=== PATIENT | female | born 1945 | race Caucasian/White ===

== ENCOUNTER 2018-08-14 13:32 | Outpatient (CLI) | payer MEDICARE, OTHER | END 2018-08-14 13:33 | disposition critical access hospital (66) | LOC: EMS 13:32 | PROVIDERS: ATTEND Surgery | DX: R41.0 Disorientation, unspecified (principal); R51 Headache | CPT/HCPCS: A0425; A0429 ==

== ENCOUNTER 2018-08-14 14:01 | Observation (INO) | payer MEDICARE, OTHER ==
--- NOTE | 2018-08-14 14:23 | ED Physician Documentation ---
PD HPI FOCAL NEURO - Stated complaint Stated Complaint: AVILA - Chief complaint Chief Complaint: Neuro - History obtained from History obtained from: Patient, EMS - History of Present Illness Timing - onset: Today (This is a 73-year-old woman who has a history of migraines with aura only. She usually does not get a headache with them. She has no history of hypertension. Earlier today she developed a left retro- orbital headache radiating occipitally which is completely different than prior headaches but not the worst headache of her life. She became concerned because her blood pressure was much higher than normal. She denies chest pain or trouble breathing. She did feel confused and vertiginous briefly at the outset of the headache but that has resolved.) Review of Systems Ten Systems: 10 systems reviewed and negative Constitutional: denies: Fever, Chills Cardiac: denies: Chest pain / pressure, Palpitations Respiratory: denies: Dyspnea, Cough GI: denies: Abdominal Pain, Nausea, Vomiting PD PAST MEDICAL HISTORY - Past Medical History Past Medical History: Yes Endocrine/Autoimmune: Other Other Past Medical History: Thyroid CA - Past Surgical History Past Surgical History: Yes - Present Medications Home Medications: Ambulatory Orders Medication Instructions Recorded Confirmed Citalopram [CeleXA] 20 mg PO DAILY 08/14/18 08/14/18 Levothyroxine [Synthroid] 50 mcg PO QDAC 08/14/18 08/14/18 - Allergies Allergies/Adverse Reactions: Allergies Allergy/AdvReac Type Severity Reaction Status Date / Time meperidine [From Demerol] AdvReac Emesis Verified 08/14/18 20:34 - Social History Does the pt smoke?: No Smoking Status: Never smoker Does the pt drink ETOH?: Yes Does the pt have substance abuse?: No - Immunizations Immunizations are current?: Yes - POLST Patient has POLST: No PD ED PE NORMAL - Vitals Vital signs reviewed: Yes - General General: Alert and oriented X 3, No acute distress - HEENT HEENT: PERRL, EOMI - Neck Neck: Supple, no meningeal sign, No bony TTP - Cardiac Cardiac: RRR, No murmur - Respiratory Respiratory: No respiratory distress, Clear bilaterally - Abdomen Abdomen: Non tender - Extremities Extremities: No edema, No calf tenderness / cord - Neuro Neuro: Alert and oriented X 3, Normal speech Eye Opening: Spontaneous Motor: Obeys Commands Verbal: Oriented GCS Score: 15 - Psych Psych: Normal mood, Normal affect NIHSS - Time Time: 14:15 - Level of Consciousness Level of consciousness: (0) Alert, Keenly responsive LOC Questions: (0) Answers both Q's correct LOC Commands: (0) Performs both correctly - Gaze Best Gaze: (0) Normal - Visual Visual: (0) No loss - Facial Palsy Facial Palsy: (0) Normal, symmetrical movement - Motor Arms (both separate) Motor Arm (right): (0) No drift Motor Arm (left): (0) No drift - Motor Legs (both separate) Motor Leg (right): (0) No drift Motor Leg (left): (0) No drift - Limb Ataxia Limb Ataxia: (0) Absent - Sensory Sensory: (0) Normal - Best Language Best Language: (0) No aphasia - Dysarthria Dysarthria: (0) Normal - Extinction and Inattention (formally neg Extinction and inattention: (0) No abnormality - Total Score/Results Total Score/Result: 0 Results - Vitals Vitals: Vital Signs - 24 hr 08/14/18 08/14/18 08/14/18 14:07 15:10 15:15 Temperature 36.5 C Heart Rate 68 65 67 Respiratory 16 16 16 Rate Blood Pressure 229/105 H 209/118 H 228/112 H O2 Saturation 98 100 98 08/14/18 08/14/18 08/14/18 15:54 16:00 16:05 Temperature Heart Rate 66 74 82 Respiratory 16 16 14 Rate Blood Pressure 198/99 H 179/77 H 166/75 H O2 Saturation 98 98 98 Oxygen O2 Source Room air - EKG (time done) 1427 Rate: Rate (enter#) (61) Rhythm: NSR [place]: Normal Intervals: Normal MI QRS: LVH Ischemia: Normal ST segments Computer interpretation: Agree with computer 1636 Rate: Rate (enter#) (56) Rhythm: NSR [place]: Normal Intervals: Normal MI QRS: Normal Ischemia: Non specific changes (Compared to the first EKG this 1 potentially has very mild submillimeter lateral ST depression with there are some artifacts it is hard to tell.). No: ST elevation c/w ischemia - Labs Labs: Laboratory Tests 08/14/18 08/14/18 08/14/18 14:35 14:35 14:35 WBC 7.6 RBC 4.73 Hgb 14.5 Hct 42.4 MCV 89.5 MCH 30.6 MCHC 34.2 RDW 12.8 Plt Count 256 MPV 9.3 Neut # (Auto) 5.4 Lymph # (Auto) 1.5 [place] # (Auto) 0.5 Eos # (Auto) 0.1 Baso # (Auto) 0.1 Absolute Nucleated RBC 0.00 Nucleated RBC % 0.1 PT 11.9 INR 1.1 Sodium 137 Potassium 3.8 Chloride 102 Carbon Dioxide 25 Anion Gap 10.0 BUN 19 Creatinine 0.7 Estimated GFR (MDRD) 82 L Glucose 98 Calcium 9.5 Total Bilirubin 0.8 AST 20 ALT 23 Alkaline Phosphatase 132 H Troponin I Total Protein 7.6 Albumin 4.3 Globulin 3.3 Albumin/Globulin Ratio 1.3 Lipase 34 08/14/18 14:35 WBC RBC Hgb Hct MCV MCH MCHC RDW Plt Count MPV Neut # (Auto) Lymph # (Auto) [place] # (Auto) Eos # (Auto) Baso # (Auto) Absolute Nucleated RBC Nucleated RBC % PT INR Sodium Potassium Chloride Carbon Dioxide Anion Gap BUN Creatinine Estimated GFR (MDRD) Glucose Calcium Total Bilirubin AST ALT Alkaline Phosphatase Troponin I < 0.04 Total Protein Albumin Globulin Albumin/Globulin Ratio Lipase - Rads (name of study) 1v chest Radiology: EMP read contemporaneously (NAD) CT Head Radiology: EMP read contemporaneously (sinus dz, no ICH etc) PD MEDICAL DECISION MAKING - ED course ED course: This is a 70-year-old who presents with very elevated blood pressures and headache without neurologic deficit. CT of the head was negative and her initial lab work was basically unremarkable. She was administered an initial dose of 10 mg of hydralazine without much effect but after 20 mg of hydralazine her blood pressure came down to about 160/90. Her headache really did not improve though and then she developed some left-sided chest pain and nausea. The onset of chest pain was about 4:35 PM. The initial EKG was without evidence of ischemia but this was repeated. The initial troponin was negative. She was administered aspirin. Even though her hypertensive urgency was in proving the fact that she developed chest pain is concerning and she will be placed in observation for formal rule out. Departure - Departure Disposition: ED Place in Observation Clinical Impression: Hypertensive urgency, Headache, Chest pain Condition: Serious Discharge Date/Time: 08/14/18 19:47
[2018-08-14 14:58] LABS: BASOPHILS # (AUTO) 0.1 10^3/uL (0.0-0.1); BASOPHILS % (AUTO) 0.8 %; EOSINOPHILS # (AUTO) 0.1 10^3/uL (0.0-0.7); EOSINOPHILS % (AUTO) 1.1 %; HGB - HEMOGLOBIN 14.5 g/dL (12.0-16.0); LYMPHOCYTES # (AUTO) 1.5 10^3/uL (1.5-3.5); LYMPHOCYTES % (AUTO) 20.3 %; MEAN CORPUSCULAR HEMOGLOBIN 30.6 pg (27.0-31.0); MEAN CORPUSCULAR HGB CONC 34.2 g/dL (32.0-36.0); MEAN CORPUSCULAR VOLUME 89.5 fL (81.0-99.0); MEAN PLATELET VOLUME 9.3 fL (7.9-10.8); MONOCYTES # (AUTO) 0.5 10^3/uL (0.0-1.0); MONOCYTES % (AUTO) 6.9 %; NEUTROPHILS # (AUTO) 5.4 10^3/uL (1.5-6.6); NEUTROPHILS % (AUTO) 70.9 %; PLT - PLATELET COUNT 256 10^3/uL (130-450); RED BLOOD COUNT 4.73 10^6/uL (4.20-5.40); RED CELL DISTRIBUTION WIDTH 12.8 % (12.0-15.0); WHITE BLOOD COUNT 7.6 x10^3/uL (4.8-10.8)
[2018-08-14] MEDS ORDERED: hydrALAZINE INJ 20 MG/ML VIAL IVP STA ×2 (14:59→15:42)
[2018-08-14 15:01] LABS: INR 1.1 (0.8-1.2); PT - PROTHROMBIN TIME 11.9 secs (9.9-12.6)
[2018-08-14 15:05] LABS: ALBUMIN 4.3 g/dL (3.2-5.5); ALBUMIN/GLOBULIN RATIO 1.3 (1.0-2.2); BILIRUBIN,TOTAL 0.8 mg/dL (0.2-1.0); CALCIUM 9.5 mg/dL (8.5-10.3); CREATININE 0.7 mg/dL (0.4-1.0); TOTAL PROTEIN 7.6 g/dL (6.7-8.2)
--- NOTE | 2018-08-14 15:22 | CT Report ---
Reason: headache Procedure Date: 08/14/2018 Accession Number: [id number] / [id number] Procedure: CT - Head W/O CPT Code: FULL RESULT: EXAM: CT HEAD EXAM DATE: 08/14/2018 02:45 PM. CLINICAL HISTORY: Headache. COMPARISON: None. TECHNIQUE: Multiaxial CT images were obtained from the foramen magnum to the vertex. Reformats: Sagittal and coronal. IV contrast: None. In accordance with CT protocol optimization, one or more of the following dose reduction techniques were utilized for this exam: automated exposure control, adjustment of mA and/or KV based on patient size, or use of iterative reconstructive technique. FINDINGS: Parenchyma: No intraparenchymal hemorrhage. No evidence of mass, midline shift, or CT findings of infarction. Sanchez-white differentiation is distinct. Extraaxial Spaces: Normal for age. No subdural or epidural collections identified. Ventricles: Normal in size and position. Sinuses and Orbits: There is bilateral maxillary sinusitis. Bones: No evidence of fracture or calvarial defect. Other: None. IMPRESSION: 1. No acute intracranial CT abnormality. 2. There is bilateral maxillary sinusitis. RADIA
[2018-08-14] MEDS ORDERED: ASPIRIN CHEW 81 MG TABLET PO STA (16:36)
[2018-08-14] MEDS ORDERED: ONDANSETRON 4 MG/2 ML VIAL IVP STA (16:36)
--- NOTE | 2018-08-14 17:44 | HISTORY & PHYSICAL EXAMINATION ---
Chief Complaint - Chief Complaint Chief Complaint: chest pain in ER History of Present Illness - Admitted From Admitted From:: Home/EMS/ER - History Obtained From Records Reviewed: [facility] History obtained from: Patient and Dr. Rincon Exam Limitations: none - History of Present Illness HPI Comment/Other: This is a lively lady who called EMS because she was having headache. She has a history of migraines with aura only. No pain. She also does not have a history of hypertension. When she does have a migraine, is manifested is more slight left hand weakness left arm weakness. But no headache. Earlier today she devel oped pain behind her left eye and went to the back of her skull. There was no aura. This bothered her because she usually does have aura. She also relates that she was having visual changes. And for a very short moment she had dizziness. While she was talking on the phone with her friend, she was having problems getting speech out. She kept on saying the word december instead of October. So she got off the phone with her friend. She was checking her blood pressure with this and it was getting higher and higher . She laid down in the bed for 15 minutes. Got up. Still felt like she was not right. She could not say the word Lazara to turn Lazara off. She was reading things and just not understanding them. She spoke to her daughter and her daughter called 911. At that point in time she denied chest pain, shortness of breath, jaw pain or shoulder pain. Dr. Ivan evaluated her headache. Noted that her blood pressure was 229/105. Waited for it to go down on its own and did not so we gave her hydralazine. Blood pressure came down to 166/75. As she was getting ready to leave, and Dr. Ivan was speaking to her, she complained of severe central chest pain. EKG had nonspecific changes. She was normal sinus rhythm with a normal UT interval and normal QRS. Her troponin was less than 0.04. She has no risk factors for coronary artery disease other than age. Prior to this she has not had high blood pressure. She does not have diabetes, hyperlipidemia, is a non-smoker, and has a negative family history. Dr. Ivan is asking us to place her in observation for her chest pain, and newly uncontrolled high blood pressure.But she is politely declining admission. History - Past Medical History Cardiovascular: reports: None Respiratory: reports: None Neuro: reports: None Endocrine/Autoimmune: reports: Other (thyroid cancer) GI: reports: Other (chronic diarrhea and colonoscopy neg.) [employer]: reports: Other () : reports: None HEENT: reports: Chronic sinusitis Psych: reports: None Musculoskeletal: reports: None Derm: reports: None MRSA Hx?: No Other Past Medical History: Thyroid CA - Family & Social History Family History Comment/Other: Mom last year at age 98 of old age. Dad at 86 for of complications of hypertension. One sister is not is healthy she is but has no major problems. 1 daughter and 1 son are healthy Living arrangement: At home Living Situation: Alone Social History Notes: She is from the [place] area. Came to [facility] to live here permanently 4 years ago. She is been twice. With her second , who of Elisabet Gehrig's disease, they spent a lot of time on the [place]. Her grandparents are [employer] and [place] is named after them. Her mom used to [address] [place]. She smoked for short time in college, may be 2 months. She is never had a problem with alcohol abuse. 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 She currently lives alone. - Substance History Use: Uses substance without health or social issues: NONE Abuse: Recurrent use of substance despite neg consequences: NONE Dependence: Experiences withdrawal or developed tolerances: NONE - POLST Patient has POLST: No POLST Status: DNR Meds/Allgy - Home Medications Home Medications: Ambulatory Orders Medication Instructions Recorded Confirmed Citalopram [CeleXA] 20 mg PO DAILY 08/14/18 08/14/18 Levothyroxine [Synthroid] 50 mcg PO QDAC 08/14/18 08/14/18 - Allergies Allergies/Adverse Reactions: Allergies Allergy/AdvReac Type Severity Reaction Status Date / Time No Known Drug Allergies Allergy Verified 08/14/18 14:07 Review of Systems - Constitutional Constitutional: denies: Fatigue, Fever, Chills, Malaise, Weakness, Poor appetite, Diaphoresis - Eyes Eyes: reports: Spots in vision (When she gets migraine as part of her aura), Corrective lenses. denies: Pain, Irritation, Amaurosis, Blurred vision - Ears, Nose & Throat Ears, Nose & Throat: reports: Vertigo (Today as part of her migraine presentation, very transitory), Nasal obstruction, Nasal congestion, Postnasal drainage (As part of current episode of sinusitis is been going on for several weeks). denies: Ear pain, Hearing loss, Hearing aids, Tinnitus - Cardiovascular Cariovascular: reports: Chest pain (For the first time in the emergency room today). denies: Irregular heart rate, Palpitations, Edema, Lightheadedness, Syncope, Exertional dyspnea, Decr. exercise tolerance - Respiratory Respiratory: denies: Cough, Sputum production, Snoring - Gastrointestinal Gastrointestinal: reports: Diarrhea, Reflux/heartburn. denies: Abdominal pain, Abdominal distention, Constipation, Change in bowel habits, Rectal bleeding, Bloody stools, Nausea, Bile emesis, Vincenzo blood emesis, Bloating, Poor appetite - Genitourinary Genitourinary: denies: Dysuria, Frequency, Urgency, Hematuria - Musculoskeletal Musculoskeletal: denies: Muscle pain, Back pain, Muscle aches, Stiffness, Gout - Integumentary Integumentary: denies: Rash, Pruritis, Lesions - Neurological Neurological: reports: Headache, Dizziness, Other (Speech difficulty word finding difficulty today). denies: General weakness, Focal weakness, Numbness - Psychiatric Psychiatric: denies: Depression, Anxiety, Suicidal, Delusions, Hallucinations - Endocrine Endocrine: denies: Polyuria, Polydypsia, Polyphagia - Hematologic/Lymphatic Hematologic/Lymphatic: denies: Anemia, Bruising, Petechiae, Blood clots Prior Level of Functionality: Lives alone. Completely active with regards to activities of daily living. Drives a car. Pays her bills. Cleans her own house. Does not use a cane or walker. Exam - Vital Signs Reviewed Vital Signs: Yes Vital Signs: Vital Signs x48h Temp Pulse Resp BP Pulse Ox 08/14/18 16:05 82 14 166/75 H 98 08/14/18 16:00 74 16 179/77 H 98 08/14/18 15:54 66 16 198/99 H 98 08/14/18 15:15 67 16 228/112 H 98 08/14/18 15:10 65 16 209/118 H 100 08/14/18 14:07 36.5 C 68 16 229/105 H 98 - Physical Exam General Appearance: positive: No acute distress, Alert Eyes Bilateral: positive: PERRL, EOMI ENT: positive: Pharynx nml, Other (Stridor with breathing in. I cannot tell if it is coming from her sinuses or her throat.) Neck: negative: No JVD, Stiff neck, Carotid bruit Respiratory: positive: Chest non-tender, Other (Upper trachea stridor that she says is from her sinusitis). negative: Wheezes, Rales, Rhonchi Cardiovascular: positive: Regular rate & rhythm. negative: JVD present, Systolic murmur, Gallop/S4, Friction rub Peripheral Pulses: positive: 2+ Abdomen: negative: Non-tender, No organomegaly, Nml bowel sounds, No distention, Tenderness Extremities: negative: Non-tender, Full ROM, Nml appearance Neurologic/Psychiatric: positive: Other (She has a very subtle left facial droop her eyelids do not completely close as her right windows. Left nasolabial fold is also subtly less pronounced than right. 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 She thinks that her eye has always look like that.). negative: Oriented x3, CN's nml (2-12), Motor nml Conclusion/Plan - Problem List (1) Chest pain Conclusion/Plan: The plan is to admit this patient for rule out VT. Her risk factors include age, but no hypertension, no hyperlipidemia, no diabetes, non-smoker. Negative family history. Plan: At this time we are in a holding pattern. After doing her history and physical she says that she does not want to be brought in. I have spoken to Dr. Ivan. He will talk to the patient and her daughter and will see what will happen t hen. He may be doing a troponin at 9 PM and speaking to her then. If she changes her mind, we will be glad to place her in observation. Qualifiers: Chest pain type: precordial pain Qualified Code(s): R07.2 - Precordial pain (2) Hypertensive urgency Conclusion/Plan: After 2 doses of hydralazine, she is now with normal blood pressure. In the outpatient setting she should get some follow-up with possibly renal artery Dopplers, follow-up blood pressures. She sees a primary care provider from Dr. claudia Davenport. Noticed will be sent to her. - Lab Results Lab results reviewed: Yes Timothy Bones: 08/14/18 14:35 08/14/18 14:35 - Diagnostic Imaging Results Diagnostic Imaging Results: positive: Final report reviewed Core Measures - Anticipated LOS I expect patient to be DC'd or transferred within 96 hours.: Yes - DVT/VTE - Prophylaxis VTE/DVT Device ordered at admit?: Yes
--- NOTE | 2018-08-14 17:58 | XRAY Report ---
Reason: chest pain Procedure Date: 08/14/2018 Accession Number: [id number] / [id number] Procedure: XR - Chest 1 View X-Ray CPT Code: 21731 FULL RESULT: EXAM: CHEST RADIOGRAPHY EXAM DATE: 08/14/2018 05:35 PM. CLINICAL HISTORY: Chest pain. COMPARISON: None. TECHNIQUE: 1 view. FINDINGS: Lungs/Pleura: No focal opacities evident. No pleural effusion. No pneumothorax. Mediastinum: Within exam limitations, the cardiomediastinal contour is normal. Other: None. IMPRESSION: No acute intrathoracic plain film abnormality. RADIA
[2018-08-14] MEDS ORDERED: ONDANSETRON 4 MG/2 ML VIAL IVP PRN (18:13)
[2018-08-14] MEDS ORDERED: ONDANSETRON ODT 4 MG TABLET TL PRN (18:13)
[2018-08-14] MEDS ORDERED: oxyCODONE 5 MG TABLET PO PRN (18:13)
[2018-08-14] MEDS ORDERED: ACETAMINOPHEN 325 MG TABLET PO PRN (18:13)
[2018-08-14] MEDS ORDERED: SODIUM CHLORIDE FLUSH 0.9% 10 ML SYRINGE IVP PRN (18:13)
[2018-08-14] MEDS ORDERED: NITROGLYCERIN SL 0.4 MG TABLET SL PRN (18:14)
[2018-08-14] MEDS ORDERED: INSULIN ASPART 300 UNIT/3 ML PEN SUBQ SCH (21:00)
[2018-08-15] MEDS: SODIUM CHLORIDE FLUSH 0.9% 10 ML SYRINGE IVP SCH ×2 (00:43→11:19)
[2018-08-15 03:45] LABS: CALCIUM 8.8 mg/dL (8.5-10.3); CREATININE 0.6 mg/dL (0.4-1.0)
[2018-08-15] MEDS ORDERED: LEVOTHYROXINE 25 MCG TABLET PO SCH (07:00)
[2018-08-15] MEDS ORDERED: CITALOPRAM 10 MG TABLET PO SCH (09:00)
[2018-08-15] MEDS ORDERED: POLYETHYLENE GLYCOL 3350 17 GM PACKET PO SCH (09:00)
--- NOTE | 2018-08-15 09:09 | Discharge Plan ---
Discharge Plan Disposition: Home, Self Care Condition: Good Prescriptions: amLODIPine [Norvasc] 5 mg PO DAILY #30 tablet Diet: Regular Activity Restrictions: Activity as Tolerated Shower Restrictions: No Driving Restrictions: No Instruction Topics: Hypertension Control, Headaches Migraine and Tension, Headaches Self Care Additional Instructions or Follow Up instructions: You were placed in observation because of chest pain. You had an unfortunate event at home where you seem to be having another variant of a migraine headache. When you came to the emergency room with a concern about the headache that caused word finding problems, you then developed severely high blood pressure in the emergency room. That was taking care of after 2 doses of the medication called hydralazine. However, unfortunately, you developed chest pain. You were placed in observation to make sure you are not have a heart attack and 3 sets of cardiac enzymes were negative. At discharge, you do have mildly elevated blood pressure. Your systolic blood pressure varies between 124-159. You and your primary care provider will need to discuss that. I have started Norvasc 5 mg daily since your discharge blood pressures was 172/81 and 158/83. The other thing I noticed during your exam was a sound called stridor when you take a breath in. 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 There are techniques and procedures that can temporarily improve your vocal cord phonation such as Radiesse Voice. A specialist can inject the vocal cord with a substance to firm it up and take away the stridor. You and your daughter can see if there is an ENT specialist that can see you at [facility]. Please follow-up with your primary care provider in the next 1 week. Let them know what happened. No Smoking: If you smoke, Please STOP! Call for help. Follow-up with: Felicia Newby MD [Primary Care Provider] -
[2018-08-15] MEDS ORDERED: amLODIPine 5 MG TABLET PO SCH (12:00)
[2018-08-15 12:04] VITALS: BP 158/83
--- NOTE | 2018-08-15 14:19 | DISCHARGE SUMMARY ---
Physician: Fadia Arizmendi MD DATE OF ADMISSION: 08/14/2018 DATE OF DISCHARGE: 08/15/2018 DISCHARGE DIAGNOSES 1. Chest pain. 2. Hypertensive urgency. 3. Stridor. 4. Vocal cord paralysis. 5. Migraine headache variant. DISCHARGE MEDICATIONS 1. Celexa 20 mg daily. 2. Levothyroxine 50 mcg daily. 3. NEW MEDICINE: Amlodipine 5 mg p.o. q.d. PRINCIPAL PROCEDURES 1. Serial cardiac enzymes that were negative. 2. Head CT that shows bilateral maxillary sinusitis. 3. Chest x-ray: No acute intrathoracic plain film abnormality. HOSPITAL COURSE: This is a nayana lady whose cardiac risk factors for coronary artery event or stroke event include blood pressure, cholesterol, and age. She says that she has had borderline cholesterol for a few years now and has not really been wanting to seek therapy for that. Her blood pressure is also borderline, and her doctors are "monitoring it." She also has migraine headaches. They are usually manifested as an aura, and then some word finding difficulty and left arm and hand numbness, but never really a true headache. In the last few weeks, she has been plagued by sinusitis. She and her primary care provider are following that. She was on the phone with a friend when she developed her aura that she associates with migraine. At this time, there was a headache. She usually does not have a headache. She also noticed that she was having increasing word finding difficulties, and confusion in reading the written word; she usually does not have that. She did not have the usual numbness of her hand. She put the phone down, went to go lie down for 15 minutes using [employer]. When [employer]'s alarm went off for her to get up, she found that she could not find the right words to turn off Lazara, continued to have word finding difficulties. She spoke to her daughter, who called 911, and ambulance came to pick her up. She was brought to the hospital where she was very hypertensive. She was 229/105. Repeat was 209/118. A third blood pressure was 228/112. She was given hydralazine because her blood pressure was not coming down, and she came down to about 198/99, so she was given another hydralazine dose and came down to 132/56. CT of the head was negative for stroke, and with the blood pressure coming down, they felt that she was stable enough to go home to be followed up by her primary care provider for her blood pressure and hypertensive urgency. While she was being evaluated for discharge, she developed chest pain. EKG was negative and troponins were negative. The ER doctor felt it was prudent for her to come in overnight for observation. The patient was not happy about coming into the hospital, but she was really unhappy when it was going to be observation status. I did explain to her that Medicare usually requires 2 midnights for inpatient status, and 1 midnight for an observation status. I inquired if she wanted us to place her as a 2 midnight stay, which would be a stretch for her problem. She said she did not want to stay two midnights; only 1 midnight. Initially, she was going to leave AMA. Her daughter came back from getting dinner and talked mom into staying. Overnight, she was identified as having stridor. I noticed that on physical exam in the ER, and her blood pressure was intermittently elevated from the 120s up to the 150s. She had no further chest pain. Telemetry showed no arrhythmias, and her troponins were negative. She no longer had any manifestation of word finding difficulty, headache, or left arm weakness. We spoke about her stridor. It is from vocal cord paralysis from having her thyroid removed and her recurrent laryngeal nerve being nicked. She was very interested in trying to get treatment for it because it was really starting to bother her. She said that even quiet activities, where she read a book, would cause her to really hear how loud she was breathing. I recommended she follow up with [facility] ENT specialist. There are injections that can be given to strengthen up the affected vocal cord. It can last for several years, but not permanently. She and her daughter will look that up. As for her blood pressure at discharge, she agreed to start a blood pressure pill, and I started her on Norvasc 5 mg daily. She is to follow up with her primary care provider, Dr. Newby, in the next 1-2 weeks. She may need a Lennox protocol stress test. Those are not available on the weekend here in our institution. Dr. Newby may be able to schedule one. PHYSICAL EXAMINATION VITAL SIGNS: At discharge, temperature was 36.7, pulse 72, blood pressure 153/79, respirations 16, 97% on room air. HEENT: This woman has a very subtle left facial droop with loss of nasolabial fold deepness when you compare it to the right. Her left eye is also slightly wider and more open than the right eye because her eyelids do not close as much. She says that is a chronic finding for her. 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 She has stridor, a nasal tone of voice. She has confirmed maxillary sinusitis on CT; already being addressed in the outpatient setting, she tells me. LUNGS: Clear other than the stridor. No crackles, rhonchi or wheezing. HEART: PMI normally placed. She has a regular rate and rhythm. No murmurs, rubs or gallops. ABDOMEN: Benign, soft, nontender, and she ate 100% of her breakfast this morning. EXTREMITIES: Without clubbing, cyanosis or edema. She is able to transfer from a lying to a sitting position to a standing position without an assist. No ataxia. Able to go the bathroom on her own. CC: MD Belen Winston [place] [facility] TD: 08/15/2018 11:45 [email or web address]
== END 2018-08-15 11:35 | disposition home or self-care (01) ==
LOC: ED 14:01 → OBS 18:13
PROVIDERS: ADMIT Specialist; ATTEND Specialist
DX: R07.2 Precordial pain (principal); I16.0 Hypertensive urgency; R06.1 Stridor; J38.00 Paralysis of vocal cords and larynx, unspecified; G43.909 Migraine, unspecified, not intractable, without status migrainosus; Z85.850 Personal history of malignant neoplasm of thyroid; J32.0 Chronic maxillary sinusitis
CPT/HCPCS: 36415; 70450; 71045; 80048; 80053; 83690; 84484; 85025; 85610; 93005; 96374; 96375; 99284; 99285; A9270; G0378

== ENCOUNTER 2020-01-08 12:38 | Outpatient (CLI) | payer MEDICARE, OTHER | END 2020-01-08 12:39 | disposition critical access hospital (66) | LOC: EMS 12:38 | PROVIDERS: ATTEND Surgery | DX: M25.551 Pain in right hip (principal); W11.XXXA Fall on and from ladder, initial encounter; Y92.008 Other place in unspecified non-institutional (private) residence as the place of occurrence of the external cause | CPT/HCPCS: A0425; A0427 ==

== ENCOUNTER 2020-01-08 13:04 | Inpatient (IN) | payer MEDICARE, OTHER ==
--- NOTE | 2020-01-08 13:20 | ED Physician Documentation ---
PD HPI Fall - Stated complaint Stated Complaint: GLF - Chief complaint Chief Complaint: Trauma Ext - History obtained from History obtained from: Patient - History of Present Illness Mechanism of injury: Lost balance Fall distance: Standing position (from up on stepstool, lost balance when something got caught around her feet.), Less than 5ft Where injury occurred: Home Timing - onset: Today (just [employer]) Injury(ies) location: Right Lower Extremity (right hip) Associated symptoms: No: LOC, AMS, Weakness, Paresthesias, Nausea / vomiting Worsens with: Movement Contributing factors: Other (Last meal was approximately 10 30-11 this morning with a chicken sandwich). No: Anticoagulated, Intoxicated Similar symptoms before: Has not had sx before Review of Systems Constitutional: denies: Fever, Chills Nose: denies: Rhinorrhea / runny nose, Congestion Throat: denies: Sore throat Cardiac: denies: Chest pain / pressure Respiratory: denies: Dyspnea, Cough GI: denies: Abdominal Pain, Nausea, Vomiting Skin: denies: Abrasion (s), Laceration (s) Neurologic: denies: Focal weakness, Numbness, Altered mental status, Headache, Head injury, LOC PD PAST MEDICAL HISTORY - Past Medical History Cardiovascular: None Respiratory: None Neuro: None Endocrine/Autoimmune: Other GI: Other FILER AND SANDER: Other () : None HEENT: Chronic sinusitis Psych: None Musculoskeletal: None Derm: None - Past Surgical History Past Surgical History: Yes - Present Medications Home Medications: Ambulatory Orders Medication Instructions Recorded Confirmed Citalopram [CeleXA] 20 mg PO DAILY 08/14/18 08/14/18 Levothyroxine [Synthroid] 50 mcg PO QDAC 08/14/18 08/14/18 amLODIPine [Norvasc] 5 mg PO DAILY #30 tablet 08/15/18 - Allergies Allergies/Adverse Reactions: Allergies Allergy/AdvReac Type Severity Reaction Status Date / Time meperidine [From Demerol] AdvReac Emesis Verified 01/08/20 13:14 - Social History Does the pt smoke?: No Smoking Status: Never smoker Does the pt drink ETOH?: Yes Does the pt have substance abuse?: No - Immunizations Immunizations are current?: Yes - POLST Patient has POLST: No POLST Status: DNR PD ED PE NORMAL - Vitals Vital signs reviewed: Yes - General General: Alert and oriented X 3, Well developed/nourished - HEENT HEENT: Atraumatic, Pharynx benign - Neck Neck: Supple, no meningeal sign, No adenopathy - Cardiac Cardiac: RRR, No murmur - Respiratory Respiratory: Clear bilaterally - Abdomen Abdomen: Soft, Non tender - Back Back: No spinal TTP - Derm Derm: Normal color, Warm and dry - Extremities Extremities: Other (The right hip has tenderness to slight range of motion or any impaction to the area. It feels slightly better with a mild traction. There is no gross deformity noted. The knee and ankle are nontender. The left lower extremity is without any tenderness and has good range of motion. Both upper extremities are nontender with a good range of motion.) - Neuro Neuro: Alert and oriented X 3, validation scientist 2-12 intact, No motor deficit, No sensory deficit, Normal speech Eye Opening: Spontaneous Motor: Obeys Commands Verbal: Oriented GCS Score: 15 Results - Vitals Vitals: Vital Signs - 24 hr 01/08/20 01/08/20 13:06 15:11 Temperature 36.4 C L Heart Rate 55 L 54 L Respiratory 16 14 Rate Blood Pressure 147/78 H 126/82 H O2 Saturation 97 95 Oxygen O2 Source Room air - Labs Labs: Laboratory Tests 01/08/20 01/08/20 01/08/20 14:35 14:35 14:35 WBC 12.5 H RBC 4.23 Hgb 13.1 Hct 39.1 MCV 92.4 MCH 31.0 MCHC 33.5 RDW 12.5 Plt Count 233 MPV 10.3 Neut # (Auto) 10.4 H Lymph # (Auto) 1.3 L [place] # (Auto) 0.6 Eos # (Auto) 0.0 Baso # (Auto) 0.0 Absolute Nucleated RBC 0.00 Nucleated RBC % 0.0 PT 12.4 INR 1.1 APTT 30.7 Sodium 137 Potassium 3.6 Chloride 99 L Carbon Dioxide 26 Anion Gap 12.0 BUN 22 H Creatinine 0.8 Estimated GFR (MDRD) 70 L Glucose 138 H Calcium 9.0 Total Bilirubin 0.9 AST 24 ALT 25 Alkaline Phosphatase 105 Total Protein 6.8 Albumin 3.6 Globulin 3.2 Albumin/Globulin Ratio 1.1 Lipase 31 Urine Color Urine Clarity Urine pH Ur Specific [place] Urine Protein Urine Glucose (UA) Urine Ketones Urine Occult Blood Urine Nitrite Urine Bilirubin Urine Urobilinogen Ur Leukocyte Esterase Ur Microscopic Review Urine Culture Comments 01/08/20 15:00 WBC RBC Hgb Hct MCV MCH MCHC RDW Plt Count MPV Neut # (Auto) Lymph # (Auto) [place] # (Auto) Eos # (Auto) Baso # (Auto) Absolute Nucleated RBC Nucleated RBC % PT INR APTT Sodium Potassium Chloride Carbon Dioxide Anion Gap BUN Creatinine Estimated GFR (MDRD) Glucose Calcium Total Bilirubin AST ALT Alkaline Phosphatase Total Protein Albumin Globulin Albumin/Globulin Ratio Lipase Urine Color YELLOW Urine Clarity CLEAR Urine pH 7.0 Ur Specific [place] 1.020 Urine Protein NEGATIVE Urine Glucose (UA) NEGATIVE Urine Ketones TRACE Urine Occult Blood NEGATIVE Urine Nitrite NEGATIVE Urine Bilirubin NEGATIVE Urine Urobilinogen 0.2 (NORMAL) Ur Leukocyte Esterase NEGATIVE Ur Microscopic Review NOT INDICATED Urine Culture Comments NOT INDICATED - Rads (name of study) right hip Radiology: Prelim report reviewed (Right femoral neck fracture with some angulation.), See rad report chest xrY Radiology: Prelim report reviewed, See rad report (NBO ACUTE PROCESS) PD MEDICAL DECISION MAKING - ED course Complexity details: reviewed results, re-evaluated patient, considered differential, d/w patient, d/w licensed tax consultant (jose Fortune) Departure - Departure Disposition: 66 [facility] DC/Xfer Clinical Impression: Fall involving stool as cause of accidental injury Hip fracture Qualifiers: Encounter type: initial encounter Fracture type: closed Laterality: right Quali fied Code(s): S72.001A - Fracture of unspecified part of neck of right femur, initial encounter for closed fracture Condition: Stable Record reviewed to determine appropriate education?: Yes
[2020-01-08] MEDS ORDERED: MORPHINE 2 MG/ML CARPUJECT IVP STA (13:52)
[2020-01-08] MEDS ORDERED: ONDANSETRON 4 MG/2 ML VIAL IVP STA (13:52)
[2020-01-08] MEDS ORDERED: MORPHINE 10 MG/ML VIAL IVP STA (14:31)
[2020-01-08 14:42] LABS: BASOPHILS % (AUTO) 0.2 %; EOSINOPHILS % (AUTO) 0.2 %; HGB - HEMOGLOBIN 13.1 g/dL (12.0-16.0); LYMPHOCYTES # (AUTO) 1.3 10^3/uL (1.5-3.5); LYMPHOCYTES % (AUTO) 10.6 %; MEAN CORPUSCULAR HGB CONC 33.5 g/dL (32.0-36.0); MEAN CORPUSCULAR VOLUME 92.4 fL (81.0-99.0); MEAN PLATELET VOLUME 10.3 fL (7.9-10.8); MONOCYTES # (AUTO) 0.6 10^3/uL (0.0-1.0); MONOCYTES % (AUTO) 4.8 %; NEUTROPHILS # (AUTO) 10.4 10^3/uL (1.5-6.6); NEUTROPHILS % (AUTO) 83.4 %; PLT - PLATELET COUNT 233 10^3/uL (130-450); RED BLOOD COUNT 4.23 10^6/uL (4.20-5.40); RED CELL DISTRIBUTION WIDTH 12.5 % (12.0-15.0); WHITE BLOOD COUNT 12.5 x10^3/uL (4.8-10.8)
--- NOTE | 2020-01-08 14:45 | XRAY Report ---
Reason: fall from stepstool to right hip Procedure Date: 01/08/2020 Accession Number: [id number] / [id number] Procedure: XR - Hip w/Pelvis 2-3V RT CPT Code: Final Report FULL RESULT: PROCEDURE: Hip w/Pelvis 2-3V RT INDICATIONS: fall from stepstool to right hip TECHNIQUE: AP pelvis with lateral view(s) of the bilateral hip(s). COMPARISON: None. FINDINGS: Bones: Right hip fracture, likely transcervical neck. No dislocation. Pelvic ring appears intact. No suspicious bony lesions. Soft tissues: The visualized bowel gas pattern is normal. No suspicious soft tissue calcifications. IMPRESSION: Right hip fracture, likely transcervical. No dislocation. Reviewed by: Rishi Abbott MD on 01/08/2020 2:43 PM PDT Approved by: Rishi Abbott MD on 01/08/2020 2:43 PM PDT Station ID: [id number]
[2020-01-08 14:54] LABS: ALBUMIN 3.6 g/dL (3.2-5.5); ALBUMIN/GLOBULIN RATIO 1.1 (1.0-2.2); BILIRUBIN,TOTAL 0.9 mg/dL (0.2-1.0); CREATININE 0.8 mg/dL (0.4-1.0); INR 1.1 (0.8-1.2); PT - PROTHROMBIN TIME 12.4 secs (9.9-12.6); TOTAL PROTEIN 6.8 g/dL (6.7-8.2)
[2020-01-08 15:01] LABS: PARTIAL THROMBOPLASTIN TIME 30.7 secs (24.9-33.3)
--- NOTE | 2020-01-08 15:15 | XRAY Report ---
Reason: fall with hip fracture Procedure Date: 01/08/2020 Accession Number: [id number] / [id number] Procedure: XR - Chest 1 View X-Ray CPT Code: 65893 Final Report FULL RESULT: PROCEDURE: Chest 1 View X-Ray INDICATIONS: fall with hip fracture TECHNIQUE: One view of the chest was acquired. COMPARISON: CXR 08/14/2018 FINDINGS: Surgical changes and devices:. Right thyroidectomy clips. Lungs and pleura: No pleural effusions or pneumothorax. Lungs are clear. Question of emphysematous change. Mediastinum: Mediastinal contours appear normal. Heart size is normal. Bones and chest wall: No suspicious bony lesions. Overlying soft tissues appear unremarkable. IMPRESSION: No acute cardiopulmonary abnormality. Reviewed by: Rishi Abbott MD on 01/08/2020 3:14 PM PDT Approved by: Rishi Abbott MD on 01/08/2020 3:14 PM PDT Station ID: [id number]
[2020-01-08 15:20] LABS: BILIRUBIN,URINE NEGATIVE (NEGATIVE); GLUCOSE, URINE (UA) NEGATIVE (NEGATIVE); KETONES,URINE (UA) TRACE mg/dL (NEGATIVE); LEUKOCYTE ESTERASE, URINE NEGATIVE (NEGATIVE); NITRITE,URINE NEGATIVE (NEGATIVE); OCCULT BLOOD,URINE NEGATIVE (NEGATIVE); PROTEIN,URINE NEGATIVE (NEGATIVE); UROBILINOGEN,URINE 0.2 (NORMAL) E.U./dL (NORMAL)
[2020-01-08 15:22] LABS: CLARITY,URINE CLEAR (CLEAR)
[2020-01-08] MEDS ORDERED: LACTATED RINGERS 1,000 ML IV STA (16:26)
[2020-01-08] MEDS ORDERED: HYDROmorphone 1 MG/ML CARPUJECT IVP STA (16:26)
--- NOTE | 2020-01-08 17:46 | CONSULTATION NOTE ---
History of Present Illness - Admitted From Admitted From:: ER - History Obtained From Records Reviewed: Yes History obtained from: Patient Exam Limitations: Awake alert conversant - History of Present Illness HPI Comment/Other: Patient fell today from stepstool in garage. Twisted foot and fell directly ohn hip.No other complaints. No LOC. No back pain. History - Past Medical History Cardiovascular: reports: None, Hypertension Respiratory: reports: None Neuro: reports: None Endocrine/Autoimmune: reports: Other GI: reports: Other EVENT MGR: reports: Other () : reports: None HEENT: reports: Chronic sinusitis Psych: reports: None Musculoskeletal: reports: None Derm: reports: None MRSA Hx?: No - Family & Social History Family History Comment/Other: Mom last year at age 98 of old age. Dad at 86 for of complications of hypertension. One sister is not is healthy she is but has no major problems. 1 daughter and 1 son are healthy Social History Notes: She is from the [facility]. Came to [facility] to live here permanently 4 years ago. She is been twice. With her second , who of Elisabet Gehrig's disease, they spent a lot of time on the [place] and. Her grandparents are [employer] and [place] is named after them. Her mom used to [address] [place] [address] [place]. She smoked for short time in college, may be 2 months. She is never had a problem with alcohol abuse. 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 She currently lives alone. - Substance History Use: Uses substance without health or social issues: NONE - POLST Patient has POLST: No POLST Status: DNR Meds/Allgy - Home Medications Home Medications: Ambulatory Orders Medication Instructions Recorded Confirmed Citalopram [CeleXA] 40 mg PO DAILY 08/14/18 01/08/20 Levothyroxine [Synthroid] 50 mcg PO DAILY 08/14/18 01/08/20 Losartan/Hydrochlorothiazide 1 tab PO DAILY 01/08/20 01/08/20 [Losartan-Hctz 100-25 mg Tab] amLODIPine [Norvasc] 5 mg PO QPM 01/08/20 01/08/20 - Allergies Allergies/Adverse Reactions: Allergies Allergy/AdvReac Type Severity Reaction Status Date / Time meperidine [From Demerol] AdvReac Emesis Verified 01/08/20 13:14 Exam - Vital Signs Vital Signs: Vital Signs x48h Temp Pulse Pulse Resp BP BP Pulse Ox 01/08/20 17:11 97.4 C H 59 L 14 136/73 H 96 01/08/20 16:44 62 14 125/67 93 01/08/20 15:11 54 L 14 126/82 H 95 01/08/20 13:06 36.4 C L 55 L 16 147/78 H 97 - Physical Exam General Appearance: positive: Alert (conversant), Mild distress Eyes Bilateral: positive: Normal inspection ENT: positive: ENT inspection nml Neck: positive: Nml inspection, Trachea midline Respiratory: positive: Chest non-tender, No respiratory distress, Breath sounds nml Cardiovascular: positive: Regular rate & rhythm, No murmur, No gallop Abdomen: positive: Non-tender, No distention Rectal: positive: Other (Deferred) Back: positive: Nml inspection Skin: positive: Color nml Extremities: positive: Other (She has pain with logrolling right hip. Minimal shotening. Distal pulses DP and PT intact 2+ right foot. Neuro intact right lowe r extremity.) Conclusion/Plan - Plan Plan: I spoke to Dr. Gonzalez who will be coming integration software developer tomorrow. To circumvent this patient from being done at night for this non-urgent fracture he has agreed to take over care in the am at 8am. Salvatore signed. Patient markred. Risks and benefits of undergoing right hip hemiarthroplasty discussed in detail and she consents for surgery. NPO after midnight. - Lab Results Fish Bones: 01/08/20 14:35 01/08/20 14:35
[2020-01-08] MEDS: MORPHINE 2 MG/ML CARPUJECT IVP PRN ×2 (19:01→23:32)
[2020-01-08] MEDS: SODIUM CHLORIDE FLUSH 0.9% 10 ML SYRINGE IVP SCH ×2 (19:02→23:54)
[2020-01-08] MEDS: D5NS W/20 MEQ KCL 1,000 ML IV SCH (19:11)
--- NOTE | 2020-01-08 19:39 | HISTORY & PHYSICAL EXAMINATION ---
Chief Complaint - Chief Complaint Chief Complaint: right hip pain History of Present Illness - Admitted From Admitted From:: [facility] ED - History Obtained From Records Reviewed: yes History obtained from: patient - History of Present Illness HPI Comment/Other: Patient is a 74-year-old female who presented to the ED via EMS after sustaining a mechanical fall at home today. She was on a stepladder in her garage trying to get something from a higher height when the cords attached to the bag got tangled in her shoes causing her to lose her balance. She fell on her right hip. She did not hit her head or blackout. She fortunately had her phone with her and was able to call her neighbor who in turn called EMS and checking on her. In the ED work-up revealed a right hip fracture. As a result she is being admitted for further treatment. She denies chest pain, dyspnea, abdominal pain. She has been nauseous secondary to the pain medication she was given but denied any vomiting. She denied fever or chills. She reports being very active and is very independent of activities of daily living. She lives alone but has a very good support system. She was seen by Dr. Fortune the orthopedic surgeon and surgery is planned for tomorrow by Dr. Marquez. History - Past Medical History Cardiovascular: reports: None, Hypertension Respiratory: reports: None Neuro: reports: None Endocrine/Autoimmune: reports: Other (Hx of thyroid cancer s/p thyroidectomy) GI: reports: Other DRUM ATTENDANT: reports: Other () : reports: None HEENT: reports: Chronic sinusitis Psych: reports: None Musculoskeletal: reports: None Derm: reports: None MRSA Hx?: No - Past Surgical History /DRUM ATTENDANT: reports: Hysterectomy HEENT: reports: Cataracts Derm: reports: Skin cancer surgery - Family & Social History Family History Comment/Other: Mom last year at age 98 of old age. Dad at 86 for of complications of hypertension. One sister is not is healthy she is but has no major problems. 1 daughter and 1 son are healthy Living arrangement: At home Living Situation: Alone Social History Notes: She is from the [facility]. Came to [facility] to live here permanently 4 years ago. She is been twice. With her second , who of Elisabet Gehrig's disease, they spent a lot of time on the [place]. Her grandparents are [place]'s and [place] Aj is named after them. Her mom used to [address] [place] [address] [place]. She smoked for short time in college, may be 2 months. She is never had a problem with alcohol abuse. 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 She currently lives alone. - Substance History Use: Uses substance without health or social issues: NONE - POLST Patient has POLST: No POLST Status: Full Code Meds/Allgy - Home Medications Home Medications: Ambulatory Orders Medication Instructions Recorded Confirmed Citalopram [CeleXA] 40 mg PO DAILY 08/14/18 01/08/20 Levothyroxine [Synthroid] 50 mcg PO DAILY 08/14/18 01/08/20 Losartan/Hydrochlorothiazide 1 tab PO DAILY 01/08/20 01/08/20 [Losartan-Hctz 100-25 mg Tab] amLODIPine [Norvasc] 5 mg PO QPM 01/08/20 01/08/20 - Allergies Allergies/Adverse Reactions: Allergies Allergy/AdvReac Type Severity Reaction Status Date / Time meperidine [From Demerol] AdvReac Emesis Verified 01/08/20 13:14 Review of Systems - Constitutional Constitutional: denies: Fatigue, Fever, Chills - Eyes Eyes: denies: Pain - Ears, Nose & Throat Ears, Nose & Throat: reports: Hearing aids - Cardiovascular Cariovascular: denies: Irregular heart rate, Palpitations, Chest pain, Edema - Respiratory Respiratory: denies: Cough, Sputum production, Wheezing, SOB at rest, SOB with exertion - Gastrointestinal Gastrointestinal: reports: Nausea. denies: Abdominal pain, Abdominal dist ention, Vomiting - Musculoskeletal Musculoskeletal: reports: Joint pain (right hip). denies: Muscle pain, Back pain - Integumentary Integumentary: denies: Rash, Pruritis, Lesions - Neurological Neurological: denies: Focal weakness, Headache - Psychiatric Psychiatric: denies: Depression, Anxiety - Endocrine Endocrine: denies: Polyuria, Polydypsia - Hematologic/Lymphatic Hematologic/Lymphatic: denies: Anemia, Bruising, Petechiae Prior Level of Functionality: She lives alone. She is independent of activities of daily living. Exam - Vital Signs Vital Signs: Vital Signs x48h Temp Pulse Pulse Resp BP BP Pulse Ox 01/08/20 17:11 36.3 C L 59 L 14 136/73 H 96 01/08/20 16:44 62 14 125/67 93 01/08/20 15:11 54 L 14 126/82 H 95 01/08/20 13:06 36.4 C L 55 L 16 147/78 H 97 - Physical Exam General Appearance: positive: Alert, Moderate distress Eyes Bilateral: positive: PERRL, EOMI ENT: positive: No signs of dehydration Neck: positive: No JVD, Trachea midline Respiratory: positive: Chest non-tender, No respiratory distress, Breath sounds nml. negative: Wheezes, Rales, Rhonchi Cardiovascular: positive: Regular rate & rhythm, No murmur Abdomen: positive: Non-tender, Nml bowel sounds, No distention. negative: Guarding, Rebound Back: positive: Nml inspection Skin: positive: Color nml, No rash, Warm, Dry Extremities: positive: No pedal edema Neurologic/Psychiatric: positive: Oriented x3, Mood/affect nml Conclusion/Plan - Problem List (1) Closed right hip fracture Conclusion/Plan: Pain management with morphine as needed. Patient n.p.o. after midnight. Patient was seen by orthopedic today. Plan for surgery tomorrow. Qualifiers: Encounter type: initial encounter Qualified Code(s): S72.001A - Fracture of unspecified part of neck of right femur, initial encounter for closed fracture (2) Pre-op evaluation Conclusion/Plan: Patient is completely independent of activities of daily living. She has no history of cardiac disease. EKG done today showed sinus rhythm except for mild bradycardia. Chest x-ray showed no acute cardiopulmonary abnormality Per the NSQIP surgical risk calculator, patient's risk of serious complication and of any complication 2.4% and 2.6% respectively. At such patient is optimized for surgery (3) Hypertension Conclusion/Plan: We will continue amlodipine. We will resume losartan/HCTZ after surgery. (4) Hypothyroidism Conclusion/Plan: On Synthroid 50 mcg p.o. daily (5) Depression Conclusion/Plan: On citalopram - Lab Results Fish Bones: 01/09/20 05:02 01/09/20 05:02 Core Measures - Anticipated LOS I expect patient to be DC'd or transferred within 96 hours.: Yes - DVT/VTE - Prophylaxis VTE/DVT Device ordered at admit?: Yes
[2020-01-08] MEDS ORDERED: HEPARIN 5,000 UNIT/ML VIAL SUBQ SCH (21:00)
[2020-01-08] MEDS: HEPARIN 5,000 UNIT/ML VIAL SUBQ SCH (21:33)
[2020-01-09] MEDS: ONDANSETRON 4 MG/2 ML VIAL IVP PRN ×2 (02:09→18:43)
[2020-01-09] MEDS: amLODIPine 5 MG TABLET PO SCH ×2 (02:17→21:58)
[2020-01-09] MEDS: HYDROmorphone 0.5 MG/0.5 ML SYRINGE IVP PRN ×7 (02:17→18:43)
[2020-01-09] MEDS: HYDROcod/ACETAM 5/325 MG TABLET PO PRN ×3 (02:17→11:59)
[2020-01-09] MEDS: D5NS W/20 MEQ KCL 1,000 ML IV SCH ×3 (03:18→16:24)
[2020-01-09 05:30] LABS: BASOPHILS % (AUTO) 0.3 %; EOSINOPHILS % (AUTO) 0.3 %; LYMPHOCYTES # (AUTO) 0.8 10^3/uL (1.5-3.5); LYMPHOCYTES % (AUTO) 8.8 %; MEAN CORPUSCULAR HGB CONC 32.3 g/dL (32.0-36.0); MEAN CORPUSCULAR VOLUME 92.8 fL (81.0-99.0); MEAN PLATELET VOLUME 10.8 fL (7.9-10.8); MONOCYTES # (AUTO) 0.7 10^3/uL (0.0-1.0); MONOCYTES % (AUTO) 7.5 %; NEUTROPHILS # (AUTO) 7.9 10^3/uL (1.5-6.6); NEUTROPHILS % (AUTO) 82.8 %; PLT - PLATELET COUNT 191 10^3/uL (130-450); RED CELL DISTRIBUTION WIDTH 12.5 % (12.0-15.0); WHITE BLOOD COUNT 9.6 x10^3/uL (4.8-10.8)
[2020-01-09 05:37] LABS: CALCIUM 8.4 mg/dL (8.5-10.3); CREATININE 0.5 mg/dL (0.4-1.0)
[2020-01-09] MEDS: LEVOTHYROXINE 25 MCG TABLET PO SCH (06:02)
[2020-01-09] MEDS: PANTOPRAZOLE 40 MG TABLET PO SCH (06:06)
--- NOTE | 2020-01-09 07:39 | PHARMACY PROGRESS NOTE ---
- Best Possible Medication History Admit Date and Time: 01/08/20 1629 Processed by: Pharmacy Medication History completed: Yes Patient Interview: Completed Secondary Source(s): Written medication list, Pharmacy records, Insurance records As the person ultimately responsible for medication therapy, providers are able to order a medication from an existing home medication list in [facility] via the "Reconcile Routine" prior to Confirmation of that medication by clinical support nurse. Such practice is discouraged except when the physician, in their clinical judgment, deems that a medical need exists for a medication without regard to previous use.
--- NOTE | 2020-01-09 08:40 | CONSULTATION NOTE ---
Chief Complaint - Chief Complaint Chief Complaint: Pain right upper thigh and groin associated with fall on 01/08/2020 History of Present Illness - Admitted From Admitted From:: This is a relatively healthy 74-year-old woman who is on a stepladder and w - History Obtained From History obtained from: patient - History of Present Illness HPI Comment/Other: This is a relatively healthy 74-year-old woman who is on a stepladder and was coming down at home yesterday, when her foot became entangled with the string, tripped and fell onto her right side with immediate pain and inability to bear weight on the right leg. She is a community ambulator. She denies any other problems with her right hip, no previous fractures of hips. She does have a history of osteopenia. She has no other complaints of pain other than the right upper thigh and hip region. She denies chest pain, loss of consciousness, shortness of breath or dizziness associated with the fall. She has no history of deep venous thrombosis or pulmonary embolism in the past. She was admitted by the hospitalist and consulted by Dr. Fortune yesterday. 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 Dad at 86 for of complications of hypertension. One sister is not is healthy she is but has no major problems. 1 daughter and 1 son are healthy Living arrangement: At home Living Situation: Alone Social History Notes: She is from the [facility]. Came to [facility] to live here permanently 4 years ago. She is been twice. With her second , who of Elisabet Gehrig's disease, they [place] a [place]. Her grandparents are [employer]'s and [place] is named after them. Her mom used to [address]. She smoked for short time in college, may be 2 months. She is never had a problem with alcohol abuse. 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 She currently lives alone. - Substance History Use: Uses substance without health or social issues: NONE - POLST Patient has POLST: No POLST Status: Full Code Meds/Allgy - Home Medications Home Medications: Ambulatory Orders Medication Instructions Recorded Confirmed Citalopram [CeleXA] 40 mg PO DAILY 08/14/18 01/08/20 Levothyroxine [Synthroid] 50 mcg PO DAILY 08/14/18 01/08/20 Losartan/Hydrochlorothiazide 1 tab PO DAILY 01/08/20 01/08/20 [Losartan-Hctz 100-25 mg Tab] amLODIPine [Norvasc] 5 mg PO QPM 01/08/20 01/08/20 - Allergies Allergies/Adverse Reactions: Allergies Allergy/AdvReac Type Severity Reaction Status Date / Time meperidine [From Demerol] AdvReac Emesis Verified 01/08/20 13:14 Exam - Vital Signs Vital Signs: Vital Signs x48h Temp Pulse Resp BP Pulse Ox 01/09/20 03:18 36.9 C 59 L 16 145/73 H 97 01/09/20 01:45 62 16 172/86 H 97 - Physical Exam General Appearance: positive: No acute distress, Alert Eyes Bilateral: positive: Normal inspection ENT: positive: ENT inspection nml Neck: positive: Nml inspection Respiratory: positive: Chest non-tender Cardiovascular: positive: Regular rate & rhythm Peripheral Pulses: positive: 2+ Abdomen: positive: Non-tender Skin: positive: Color nml, Warm, Dry Neurologic/Psychiatric: positive: Oriented x3, Motor nml, Sensation nml, Mood/affect nml (Her orthopedic examination shows painful and limited movement of the right hip, shortening and external rotation deformity of right leg, skin intact, no hematoma to upper thigh. Examination of the left lower and both upper extremities did not reveal any abnormality from injury) Conclusion and Plan - Lab Results Laboratory Results 01/09/20 05:02: Sodium 133 L, Potassium 3.7, Chloride 100 L, Carbon Dioxide 26, Anion Gap 7.0, BUN 15, Creatinine 0.5, Estimated GFR (MDRD) 120, Glucose 135 H, Calcium 8.4 L 01/09/20 05:02: WBC 9.6, RBC 4.00 L, Hgb 12.0, Hct 37.1, MCV 92.8, MCH 30.0, MCHC 32.3, RDW 12.5, Plt Count 191, MPV 10.8, Neut # (Auto) 7.9 H, Lymph # (Auto) 0.8 L, [place] # (Auto) 0.7, Eos # (Auto) 0.0, Baso # (Auto) 0.0, Absolute Nucleated RBC 0.00, Nucleated RBC % 0.0 01/08/20 15:00: Urine Color YELLOW, Urine Clarity CLEAR, Urine pH 7.0, Ur Specific [place] 1.020, Urine Protein NEGATIVE, Urine Glucose (UA) NEGATIVE, Urine Ketones TRACE, Urine Occult Blood NEGATIVE, Urine Nitrite NEGATIVE, Urine Bilirubin NEGATIVE, Urine Urobilinogen 0.2 (NORMAL), Ur Leukocyte Esterase NEGATIVE, Ur Microscopic Review NOT INDICATED, Urine Culture Comments NOT INDICATED 01/08/20 14:35: Sodium 137, Potassium 3.6, Chloride 99 L, Carbon Dioxide 26, Anion Gap 12.0, BUN 22 H, Creatinine 0.8, Estimated GFR (MDRD) 70 L, Glucose 138 H, Calcium 9.0, Total Bilirubin 0.9, AST 24, ALT 25, Alkaline Phosphatase 105, Total Protein 6.8, Albumin 3.6, Globulin 3.2, Albumin/Globulin Ratio 1.1, Lipase 31 01/08/20 14:35: PT 12.4, INR 1.1, APTT 30.7 01/08/20 14:35: WBC 12.5 H, RBC 4.23, Hgb 13.1, Hct 39.1, MCV 92.4, MCH 31.0, MCHC 33.5, RDW 12.5, Plt Count 233, MPV 10.3, Neut # (Auto) 10.4 H, Lymph # (Auto) 1.3 L, [place] # (Auto) 0.6, Eos # (Auto) 0.0, Baso # (Auto) 0.0, Absolute Nucleated RBC 0.00, Nucleated RBC % 0.0 - Diagnostic Imaging Results Diagnostic Imaging Results: positive: Prelim report reviewed, Read independently - Diagnosis Diagnosis: Displaced femoral neck fracture right hip - Plan Plan: The tentative plan is to proceed with a right hip hemiarthroplasty. The risk, goals and likelihood of achieving goals, alternatives, disability and were discussed with the patient. Procedure specific risks including dislocation, infection, neurologic deficit, leg length discrepancy and deep venous thrombosis were discussed with her. I have encouraged questions. She seems to have understanding of the procedure and is in agreement to proceeding with a right hip hemiarthroplasty. The procedure will tentatively be performed this afternoon. She has been seen by hospitalist yesterday and also Dr. Fortune, orthopedist who was on-call yesterday.
[2020-01-09] MEDS: SODIUM CHLORIDE FLUSH 0.9% 10 ML SYRINGE IVP SCH ×2 (09:15→15:45)
[2020-01-09] MEDS: SODIUM CHLORIDE FLUSH 0.9% 10 ML SYRINGE IVP PRN (09:25)
[2020-01-09] MEDS: HEPARIN 5,000 UNIT/ML VIAL SUBQ SCH ×2 (11:56→21:58)
--- NOTE | 2020-01-09 14:08 | ANESTHESIA ---
Pre-Anesthesia VS, & Labs - Diagnosis Diagnosis Displaced femoral neck fracture right hip - Procedure R hemiarthroplasty hip Vital Signs: Temp Pulse Resp BP Pulse Ox 36.4 C L 57 L 16 122/75 96 01/09/20 08:15 01/09/20 08:15 01/09/20 08:15 01/09/20 08:15 01/09/20 08:15 Height 5 ft 7 in Weight (kg) 71 kg Body Mass Index 24.5 - NPO >8 hours - Is Patient ?: No - Lab Results Current Lab Results: Laboratory Tests 01/09/20 05:02: Sodium 133 L, Potassium 3.7, Chloride 100 L, Carbon Dioxide 26, Anion Gap 7.0, BUN 15, Creatinine 0.5, Estimated GFR (MDRD) 120, Glucose 135 H, Calcium 8.4 L 01/09/20 05:02: WBC 9.6, RBC 4.00 L, Hgb 12.0, Hct 37.1, MCV 92.8, MCH 30.0, MCHC 32.3, RDW 12.5, Plt Count 191, MPV 10.8, Neut # (Auto) 7.9 H, Lymph # (Auto) 0.8 L, [place] # (Auto) 0.7, Eos # (Auto) 0.0, Baso # (Auto) 0.0, Absolute Nucleated RBC 0.00, Nucleated RBC % 0.0 01/08/20 14:35: Sodium 137, Potassium 3.6, Chloride 99 L, Carbon Dioxide 26, Anion Gap 12.0, BUN 22 H, Creatinine 0.8, Estimated GFR (MDRD) 70 L, Glucose 138 H, Calcium 9.0, Total Bilirubin 0.9, AST 24, ALT 25, Alkaline Phosphatase 105, Total Protein 6.8, Albumin 3.6, Globulin 3.2, Albumin/Globulin Ratio 1.1, Lipase 31 01/08/20 14:35: PT 12.4, INR 1.1, APTT 30.7 01/08/20 14:35: WBC 12.5 H, RBC 4.23, Hgb 13.1, Hct 39.1, MCV 92.4, MCH 31.0, MCHC 33.5, RDW 12.5, Plt Count 233, MPV 10.3, Neut # (Auto) 10.4 H, Lymph # (Auto) 1.3 L, [place] # (Auto) 0.6, Eos # (Auto) 0.0, Baso # (Auto) 0.0, Absolute Nucleated RBC 0.00, Nucleated RBC % 0.0 Lab results reviewed: Yes Fish Bones: 01/09/20 05:02 01/09/20 05:02 Home Medications and Allergies Home Medications: Ambulatory Orders Losartan/Hydrochlorothiazide [Losartan-Hctz 100-25 mg Tab] 1 tab PO DAILY 01/08/20 amLODIPine [Norvasc] 5 mg PO QPM 01/08/20 Active Medications Hydrocodone Bitart/Acetaminophen ([place] 5/325) 1 tab PO Q4HR PRN PRN Reason: PAIN Last Admin: 01/09/20 11:59 Dose: 1 tab Amlodipine Besylate (Norvasc) 5 mg PO QPM [facility] Last Admin: 01/09/20 02:17 Dose: 5 mg Heparin Sodium (Porcine) () 5,000 unit SUBQ BID [facility] Last Admin: 01/09/20 11:56 Dose: Not Given Hydromorphone HCl (Dilaudid Inj Syringe) 0.5 mg IVP Q2H PRN PRN Reason: PAIN Last Admin: 01/09/20 12:00 Dose: 0.5 mg Potassium Chloride/Dextrose/Sod Cl () 1,000 mls @ 100 mls/hr IV .Q10H [facility] Last Admin: 01/09/20 06:10 Dose: 100 mls/hr Levothyroxine Sodium (Synthroid) 50 mcg PO QDAC [facility] Last Admin: 01/09/20 06:02 Dose: 50 mcg Ondansetron HCl (Zofran Inj) 4 mg IVP Q6HR PRN PRN Reason: Nausea / Vomiting Last Admin: 01/09/20 02:09 Dose: 4 mg Pantoprazole Sodium (Protonix) 40 mg PO QDAC [facility] Last Admin: 01/09/20 06:06 Dose: 40 mg Sodium Chloride (Normal Saline Flush 0.9%) 10 ml IVP PRN PRN PRN Reason: NEEDED PER PROVIDER ORDERS Last Admin: 01/09/20 09:25 Dose: 10 ml Sodium Chloride (Normal Saline Flush 0.9%) 10 ml IVP 0100,0900,1700 [facility] Last Admin: 01/09/20 09:15 Dose: Not Given Citalopram [CeleXA] 40 mg PO DAILY 08/14/18 Levothyroxine [Synthroid] 50 mcg PO DAILY 08/14/18 Losartan/Hydrochlorothiazide [Losartan-Hctz 100-25 mg Tab] 1 tab PO DAILY 01/08/20 amLODIPine [Norvasc] 5 mg PO QPM 01/08/20 Allergies/Adverse Reactions: Allergies Allergy/AdvReac Type Severity Reaction Status Date / Time meperidine [From Demerol] AdvReac Emesis Verified 01/08/20 13:14 Anes History & Medical History - Anesthetic History Anesthesia Complications: reports: No previous complications Family history of Anesthesia Complications: Denies Family history of Malignant Hyperthermia: Denies - Medical History Cardiovascular: reports: None, Hypertension Pulmonary: reports: None Gastrointestinal: reports: Other Urinary: reports: None Neuro: reports: None Musculoskeletal: reports: None Endocrine/Autoimmune: reports: Other (Hx of thyroid cancer s/p thyroidectomy) Blood Disorders: reports: None Skin: reports: None Smoking Status: Never smoker - Surgical History Eyes Ears Nose Throat (EENT): Cataracts Gynecologic: Hysterectomy Dermatologic: Skin cancer surgery Exam General: Alert, Oriented x3, Cooperative Dental: WNL Mouth Openin Fingerbreadth Neck Mobility: Normal Mallampati classification: III Respiratory: Lungs clear, Normal breath sounds, No respiratory distress Cardiovascular: Regular rate Neurological: Normal speech Mental/Cognitive Status: Alert/Oriented X3, Normal for patient Cognitive Status: Within normal limits Plan Anesthesia Type: General (pt refused spinal), Fascia [place] Block Regional Block: Per Surgeon's request for Post Op pain control Consent for Procedure(s) Verified and Reviewed: Yes Code Status: Attempt Resuscitation ASA classification: 2-Mild systemic disease Is this case an emergency?: No
--- NOTE | 2020-01-09 16:57 | PROVIDER PROGRESS NOTE ---
Assessment/Plan - Problem List (1) Closed right hip fracture Qualifiers: Encounter type: initial encounter Qualified Code(s): S72.001A - Fracture of unspecified part of neck of right femur, initial encounter for closed fracture Assessment/Plan: She still needs pain meds. She does not want to be repositioned in bed because she moved slightly and " heard something pop". She is awaiting surgery, will be done later in the day. (2) Hypertension Assessment/Plan: Her home blood pressure meds continue while here. (3) Hypothyroidism Assessment/Plan: Her home meds continue while here (4) Depression Assessment/Plan: Her home meds continue while here - Current Meds Current Meds: Current Medications Generic Name Dose Route Start Last Admin Trade Name Freq PRN Reason Stop Dose Admin Hydrocodone Bitart/Acetaminophen 1 tab 01/09/20 01:58 01/09/20 11:59 [place] 5/325 PO 1 tab Q4HR PRN Administration PAIN Amlodipine Besylate 5 mg 01/09/20 01:59 01/09/20 02:17 Norvasc PO 5 mg QPM LARRY Administration Heparin Sodium (Porcine) 5,000 unit 01/08/20 21:00 01/09/20 11:56 SUBQ Not Given BID LARRY Hydromorphone HCl 0.5 mg 01/09/20 01:58 01/09/20 14:46 Dilaudid Inj Syringe IVP 0.5 mg Q2H PRN Administration PAIN Potassium Chloride/Dextrose/Sod Cl 1,000 mls @ 100 mls/hr 01/08/20 17:00 01/09/20 16:24 IV 100 mls/hr .Q10H LARRY Administration Levothyroxine Sodium 50 mcg 01/09/20 07:00 01/09/20 06:02 Synthroid PO 50 mcg QDAC LARRY Administration Ondansetron HCl 4 mg 01/08/20 17:00 01/09/20 02:09 Zofran Inj IVP 4 mg Q6HR PRN Administration Nausea / Vomiting Pantoprazole Sodium 40 mg 01/09/20 07:00 01/09/20 06:06 Protonix PO 40 mg QDAC LARRY Administration Sodium Chloride 10 ml 01/08/20 17:00 01/09/20 09:25 Normal Saline Flush 0.9% IVP 10 ml PRN PRN Administration NEEDED PER PROVIDER ORDERS Sodium Chloride 10 ml 01/08/20 17:00 01/09/20 15:45 Normal Saline Flush 0.9% IVP Not Given 0100,0900,1700 LARRY - Lab Result Fish Bone Diagrams: 01/09/20 05:02 01/09/20 05:02 - Additional Planning My Orders: My Active Orders 01/08/20 17:00 Activity Orders [RC] Q2HR IO [RC] IOSHIFT Initiate Bowel Care Protocol [RC] .protocol Initiate Personal Care Protoco [RC] .protocol Oxygen Therapy [RC] Routine Vital Signs [RC] 0800,1600,0000 D5ns W/20 Meq KCl 1,000 ml IV 100 mls/hr Ondansetron Inj [Zofran Inj] 4 mg IVP Q6HR PRN Sodium Chloride Flush 0.9% [Normal Saline Flush 0.9%] 10 ml IVP 0100,0900,1700 Sodium Chloride Flush 0.9% [Normal Saline Flush 0.9%] 10 ml IVP PRN PRN Code Status [OTHERS] Routine Condition of Patient [OTHERS] Routine DVT Prophylaxis [OTHERS] Routine 01/08/20 17:01 IV Insert [RC] .ONCE 01/08/20 17:03 Initiate Line Care Protocol [RC] QSHIFT 01/08/20 21:00 Heparin 5,000 unit SUBQ BID 01/09/20 00:01 DIET [NPO except Meds at Midnight] [DIET] 01/09/20 07:00 Pantoprazole [Protonix] 40 mg PO QDAC Subjective - Subjective Patient Reports: Other (Still has pain. Is waiting for orthopedic surgery.) Objective Vital Signs: Vital Signs - 24 hr 01/08/20 01/08/20 01/09/20 17:11 23:34 01:45 Temperature 36.3 C L 37.2 C Heart Rate [ 59 L 62 62 Monitoring electrodes] Respiratory 14 14 16 Rate Blood Pressure [Left Brachial artery] Blood Pressure 136/73 H 158/80 H 172/86 H [Right Brachial artery] O2 Saturation 96 97 97 01/09/20 01/09/20 01/09/20 03:18 08:15 15:38 Temperature 36.9 C 36.4 C L 36.9 C Heart Rate [ 59 L 57 L 65 Monitoring electrodes] Respiratory 16 16 19 Rate Blood Pressure 134/64 H [Left Brachial artery] Blood Pressure 145/73 H 122/75 143/75 H [Right Brachial artery] O2 Saturation 97 96 95 Oxygen O2 Source Nasal cannula I&O (Last 24 Hrs): Intake and Output Totals x24h 01/07/20 01/08/20 01/09/20 23:59 23:59 23:59 Intake Total 650 2078.333 Output Total 400 600 Balance 250 1478.333 General: Alert, Oriented x3 HEENT: Mucous membr. moist/pink Neck: Supple Neuro: Alert, Non Focal Cardiovascular: Regular rate Respiratory: No respiratory distress Abdomen: Soft Extremities: No edema - Results Results: Laboratory Results WBC 9.6 x10^3/uL (4.8-10.8) 01/09/20 05:02 RBC 4.00 10^6/uL (4.20-5.40) L 01/09/20 05:02 Hgb 12.0 g/dL (12.0-16.0) 01/09/20 05:02 Hct 37.1 % (37.0-47.0) 01/09/20 05:02 MCV 92.8 fL (81.0-99.0) 01/09/20 05:02 MCH 30.0 pg (27.0-31.0) 01/09/20 05:02 MCHC 32.3 g/dL (32.0-36.0) 01/09/20 05:02 RDW 12.5 % (12.0-15.0) 01/09/20 05:02 Plt Count 191 10^3/uL (130-450) 01/09/20 05:02 MPV 10.8 fL (7.9-10.8) 01/09/20 05:02 Neut # (Auto) 7.9 10^3/uL (1.5-6.6) H 01/09/20 05:02 Lymph # (Auto) 0.8 10^3/uL (1.5-3.5) L 01/09/20 05:02 [place] # (Auto) 0.7 10^3/uL (0.0-1.0) 01/09/20 05:02 Eos # (Auto) 0.0 10^3/uL (0.0-0.7) 01/09/20 05:02 Baso # (Auto) 0.0 10^3/uL (0.0-0.1) 01/09/20 05:02 Absolute Nucleated RBC 0.00 x10^3/uL 01/09/20 05:02 Nucleated RBC % 0.0 /100WBC 01/09/20 05:02 PT 12.4 secs (9.9-12.6) 01/08/20 14:35 INR 1.1 (0.8-1.2) 01/08/20 14:35 APTT 30.7 secs (24.9-33.3) 01/08/20 14:35 Sodium 133 mmol/L (135-145) L 01/09/20 05:02 Potassium 3.7 mmol/L (3.5-5.0) 01/09/20 05:02 Chloride 100 mmol/L (101-111) L 01/09/20 05:02 Carbon Dioxide 26 mmol/L (21-32) 01/09/20 05:02 Anion Gap 7.0 (6-13) 01/09/20 05:02 BUN 15 mg/dL (6-20) 01/09/20 05:02 Creatinine 0.5 mg/dL (0.4-1.0) 01/09/20 05:02 Estimated GFR (MDRD) 120 (>89) 01/09/20 05:02 Glucose 135 mg/dL (70-100) H 01/09/20 05:02 Calcium 8.4 mg/dL (8.5-10.3) L 01/09/20 05:02 Total Bilirubin 0.9 mg/dL (0.2-1.0) 01/08/20 14:35 AST 24 IU/L (10-42) 01/08/20 14:35 ALT 25 IU/L (10-60) 01/08/20 14:35 Alkaline Phosphatase 105 IU/L (42-121) 01/08/20 14:35 Total Protein 6.8 g/dL (6.7-8.2) 01/08/20 14:35 Albumin 3.6 g/dL (3.2-5.5) 01/08/20 14:35 Globulin 3.2 g/dL (2.1-4.2) 01/08/20 14:35 Albumin/Globulin Ratio 1.1 (1.0-2.2) 01/08/20 14:35 Lipase 31 U/L (22-51) 01/08/20 14:35 Urine Color YELLOW 01/08/20 15:00 Urine Clarity CLEAR (CLEAR) 01/08/20 15:00 Urine pH 7.0 PH (5.0-7.5) 01/08/20 15:00 Ur Specific [place] 1.020 (1.002-1.030) 01/08/20 15:00 Urine Protein NEGATIVE mg/dL (NEGATIVE) 01/08/20 15:00 Urine Glucose (UA) NEGATIVE mg/dL (NEGATIVE) 01/08/20 15:00 Urine Ketones TRACE mg/dL (NEGATIVE) 01/08/20 15:00 Urine Occult Blood NEGATIVE (NEGATIVE) 01/08/20 15:00 Urine Nitrite NEGATIVE (NEGATIVE) 01/08/20 15:00 Urine Bilirubin NEGATIVE (NEGATIVE) 01/08/20 15:00 Urine Urobilinogen 0.2 (NORMAL) E.U./dL (NORMAL) 01/08/20 15:00 Ur Leukocyte Esterase NEGATIVE (NEGATIVE) 01/08/20 15:00 Ur Microscopic Review NOT INDICATED 01/08/20 15:00 Urine Culture Comments NOT INDICATED 01/08/20 15:00
[2020-01-09] MEDS ORDERED: ACETAMINOPHEN 1,000 MG/100 ML 100 ML IV ONE (17:32)
[2020-01-09] MEDS ORDERED: fentaNYL 100 MCG/2 ML VIAL IVP ONE (19:28)
[2020-01-09] MEDS ORDERED: ACETAMINOPHEN 1,000 MG/100 ML VIAL IV ONE (19:28)
[2020-01-09] MEDS ORDERED: NEOSTIGMINE 1 MG/1 ML 10 ML MDV IVP ONE (19:28)
[2020-01-09] MEDS ORDERED: PROPOFOL 200 MG/20 ML VIAL IVP ONE (19:28)
[2020-01-09] MEDS ORDERED: MIDAZOLAM 2 MG/2 ML VIAL IVP ONE (19:28)
[2020-01-09] MEDS ORDERED: ROCURONIUM 50 MG/5 ML VIAL IVP ONE (19:28)
[2020-01-09] MEDS ORDERED: TRANEXAMIC ACID 1,000 MG/10 ML VIAL IV ONE (19:28)
[2020-01-09] MEDS ORDERED: GLYCOPYRROLATE 1 MG/5 ML VIAL IVP ONE (19:28)
[2020-01-09] MEDS ORDERED: LIDOCAINE-MPF 2% 5 ML VIAL IM ONE (19:28)
[2020-01-09] MEDS ORDERED: LACTATED RINGERS 1,000 ML IV ONE ×3 (19:45→21:13)
[2020-01-09] MEDS: BUPIVACAINE 0.25% PF 30 ML VIAL ONE ×2 (20:47→21:14)
--- NOTE | 2020-01-09 21:33 | OPERATIVE REPORT ---
Operative Report - General Admit Date: 01/08/20 Procedure Date: 01/09/20 Planned Procedure: Garrett arthroplasty right hip Pre-Op Diagnosis: Displaced femoral neck fracture right hip Procedure Performed: Hemiarthroplasty right hip using Cali nephew #13 Synergy femoral component, +0 neck, standard offset, 46 mm unipolar femoral head Post Op Diagnosis: Same as preop diagnosis - Procedure Note Primary Surgeon: Jose Gonzalez MD Secondary Surgeon: none Anesthesia Provider: Ramirez Sandhu Anesthesia Technique: General ET tube Estimated Blood Loss (mL): 350 Indications: This is a 74-year-old woman, community ambulator, no previous hip problems until she sustained a fall from a stepladder at home on 01/08/2020. She sustained isolated injury to right hip with pain, limited motion of right hip and clinical deformity of right leg. Her x-ray showed a completely displaced femoral neck fracture of the right hip. She was seen preoperatively by her hospitalist, informed consent obtained prior to surgery for hemiarthroplasty right hip Findings: There was a displaced femoral neck fracture of the right hip. There was no sign of articular cartilage damage to the acetabulum. Complications: None - Other Other Information/Narrative: The patient was brought to the operating room table and a general endotracheal anesthesia was performed. She was placed in the lateral decubitus position with the right hip facing superiorly and secured in this position using a pegboard. The right hip and right lower extremity was prepped and draped in a sterile manner in the usual fashion. A timeout procedure was performed by the entire operating room team and all were in agreement. A 12 cm longitudinal incision was made about the lateral aspect of the right hip. The subcutaneous tissue and fascia allan was split in line with the incision. An initial self- retaining retractor was inserted. The anterior one third of the gluteus medius was divided at the myotendinous junction to allow for later repair. The anterior hip capsule was exposed in a T shaped fashion and partially excised with the help of some traction and external rotation to the right leg. The femoral head was removed using a corkscrew and bone hook. The diameter of the femoral head was measured with calipers and measured 46 mm. The right leg was placed in a sterile pocket over the anterior aspect of the table. A hip skid was inserted to elevate the femoral neck. The femoral canal was opened with a box osteotome, reamers and then broaches to a number 13 mm broach. Calcar reaming was performed. A trial reduction was performed and found to be suitable with good leg length tension and good stability and motion to right hip. The permanent components were next seated with a #13 noncemented Synergy femoral component. This had excellent stability to push pull and rotation. The femoral head was then impacted on the femoral trunnion. The hip was reduced and found to be stable with good motion and good leg length tension. Dilute Betadine was placed into the wound for approximately 3 minutes, pulsatile lavage. Wound closure was performed with the capsule using #1 Vicryl, hip abductor repair at the myotendinous junction was performed with #1 Vicryl. Fascia allan was closed with #1 Vicryl. The subcutaneous tissue was closed with 0 Vicryl. The skin was closed with 3-0 Monocryl subcuticular suture. Dermabond was used for closure to the skin as well and a silver impregnated dressing was applied to the hip incision. The patient received 2 g of Ancef intravenously and 2 grams of tranexamic acid.She tolerated the procedure well
[2020-01-09] MEDS ORDERED: PROCHLORPERAZINE 10 MG/2 ML VIAL IVP PRN (21:55)
[2020-01-09] MEDS ORDERED: SODIUM CHLORIDE FLUSH 0.9% 10 ML SYRINGE IVP PRN (21:55)
[2020-01-09] MEDS ORDERED: ACETAMINOPHEN 1,000 MG/100 ML 100 ML IV PRN (21:55)
[2020-01-09] MEDS: ceFAZolin 2 GM in SODIUM CHLORIDE 0.9% 100ML 100 ML IV SCH (22:44)
[2020-01-10] MEDS: HYDROmorphone 0.5 MG/0.5 ML SYRINGE IVP PRN ×2 (00:16→17:04)
[2020-01-10] MEDS: SODIUM CHLORIDE FLUSH 0.9% 10 ML SYRINGE IVP SCH ×8 (01:14→23:48)
[2020-01-10 05:11] LABS: BASOPHILS % (AUTO) 0.2 %; EOSINOPHILS % (AUTO) 0.1 %; HGB - HEMOGLOBIN 11.4 g/dL (12.0-16.0); LYMPHOCYTES # (AUTO) 0.4 10^3/uL (1.5-3.5); LYMPHOCYTES % (AUTO) 3.8 %; MEAN CORPUSCULAR HEMOGLOBIN 31.3 pg (27.0-31.0); MEAN CORPUSCULAR HGB CONC 33.5 g/dL (32.0-36.0); MEAN CORPUSCULAR VOLUME 93.4 fL (81.0-99.0); MEAN PLATELET VOLUME 10.9 fL (7.9-10.8); MONOCYTES # (AUTO) 0.4 10^3/uL (0.0-1.0); MONOCYTES % (AUTO) 4.1 %; NEUTROPHILS % (AUTO) 91.4 %; PLT - PLATELET COUNT 173 10^3/uL (130-450); RED BLOOD COUNT 3.64 10^6/uL (4.20-5.40); RED CELL DISTRIBUTION WIDTH 12.2 % (12.0-15.0); WHITE BLOOD COUNT 9.8 x10^3/uL (4.8-10.8)
[2020-01-10 05:22] LABS: CALCIUM 8.3 mg/dL (8.5-10.3); CREATININE 0.5 mg/dL (0.4-1.0)
[2020-01-10] MEDS: ceFAZolin 2 GM in SODIUM CHLORIDE 0.9% 100ML 100 ML IV SCH (06:11)
[2020-01-10] MEDS: LEVOTHYROXINE 25 MCG TABLET PO SCH (06:11)
[2020-01-10] MEDS: PANTOPRAZOLE 40 MG TABLET PO SCH (06:13)
[2020-01-10] MEDS ORDERED: LEVOTHYROXINE 25 MCG TABLET PO SCH (07:00)
[2020-01-10] MEDS: ASPIRIN 325 MG TABLET PO SCH ×2 (09:15→16:47)
[2020-01-10] MEDS: LOSARTAN 50 MG TABLET PO SCH (09:16)
[2020-01-10] MEDS: hydroCHLOROthiazide 25 MG TABLET PO SCH (09:16)
--- NOTE | 2020-01-10 09:16 | XRAY Report ---
Reason: post op hemiarthroplasty hip Procedure Date: 01/09/2020 Accession Number: [id number] / [id number] Procedure: XR - Hip w/Pelvis 1V LT CPT Code: Final Report FULL RESULT: PROCEDURE: Hip w/Pelvis 1V RT INDICATIONS: post op hemiarthroplasty hip TECHNIQUE: AP pelvis with lateral view(s) of the right hip(s). COMPARISON: None. FINDINGS: Bones: Patient is status post right hip arthroplasty. Hardware is in expected anatomic alignment. Soft tissues: Overlying postoperative changes are noted in the soft tissues. IMPRESSION: Status post right hip arthroplasty. Reviewed by: Екатерина Singh MD on 01/10/2020 9:15 AM PDT Approved by: Екатерина Singh MD on 01/10/2020 9:15 AM PDT Station ID: [id number]
[2020-01-10] MEDS: HEPARIN 5,000 UNIT/ML VIAL SUBQ SCH (09:25)
--- NOTE | 2020-01-10 11:09 | PROVIDER PROGRESS NOTE ---
Subjective - General Admit Date: 01/08/20 Procedure Date: 01/09/20 Post Op Days: 1 Procedure Performed: hemiarthroplasty right hip - Review of Systems Wound/Incisions: positive: Dressing dry and intact General: positive: Other (She has good pain control to right hip, comfortable si tting in bed,) HEENT: positive: No symptoms Pulmonary: positive: No symptoms Cardiovascular: positive: No symptoms Gastrointestinal: positive: No symptoms Genitourinary: positive: No symptoms Musculoskeletal: positive: Joint pain Skin: positive: No symptoms Neurological: Psychiatric: positive: No symptoms Objective - Patient Data Vital Signs: Vital Signs x48h Temp Pulse Pulse Resp BP Pulse Ox 01/10/20 09:09 36.4 C L 83 14 98 01/10/20 08:25 36.4 C L 70 16 146/72 H 97 01/10/20 04:25 70 16 122/62 94 Weight: Weight 01/08/20 01/09/20 01/10/20 23:59 23:59 23:59 Weight (kg) 71 kg Intake & Output: Intake and Output Totals x24h 01/08/20 01/09/20 01/10/20 23:59 23:59 23:59 Intake Total 650 2796.673 340 Output Total 552 899 2725 Balance 250 2196.673 -1035 - Lab Results Lab Results: 01/10/20 04:50 01/10/20 04:50 Other Lab Results: Lab Results x24hrs 01/10/20 01/10/20 Range/Units 04:50 04:50 WBC 9.8 (4.8-10.8) x10^3/uL RBC 3.64 L (4.20-5.40) 10^6/uL Hgb 11.4 L (12.0-16.0) g/dL Hct 34.0 L (37.0-47.0) % MCV 93.4 (81.0-99.0) fL MCH 31.3 H (27.0-31.0) pg MCHC 33.5 (32.0-36.0) g/dL RDW 12.2 (12.0-15.0) % Plt Count 173 (130-450) 10^3/uL MPV 10.9 H (7.9-10.8) fL Neut # (Auto) 9.0 H (1.5-6.6) 10^3/uL Lymph # (Auto) 0.4 L (1.5-3.5) 10^3/uL [place] # (Auto) 0.4 (0.0-1.0) 10^3/uL Eos # (Auto) 0.0 (0.0-0.7) 10^3/uL Baso # (Auto) 0.0 (0.0-0.1) 10^3/uL Absolute Nucleated RBC 0.00 x10^3/uL Nucleated RBC % 0.0 /100WBC Sodium 133 L (135-145) mmol/L Potassium 3.9 (3.5-5.0) mmol/L Chloride 100 L (101-111) mmol/L Carbon Dioxide 25 (21-32) mmol/L Anion Gap 8.0 (6-13) BUN 8 (6-20) mg/dL Creatinine 0.5 (0.4-1.0) mg/dL Estimated GFR (MDRD) 120 (>89) Glucose 178 H (70-100) mg/dL Calcium 8.3 L (8.5-10.3) mg/dL - Current Medications Current Medications: Current Medications Generic Name Dose Route Start Last Admin Trade Name Freq PRN Reason Stop Dose Admin Hydrocodone Bitart/Acetaminophen 1 tab 01/09/20 01:58 01/09/20 11:59 [place] 5/325 PO 1 tab Q4HR PRN Administration PAIN Amlodipine Besylate 5 mg 01/09/20 01:59 01/09/20 21:58 Norvasc PO Not Given QPM LARRY Aspirin 325 mg 01/10/20 08:00 01/10/20 09:15 Crista PO 325 mg BIDWM LARRY Administration Heparin Sodium (Porcine) 5,000 unit 01/08/20 21:00 01/10/20 09:25 SUBQ Not Given BID LARRY Hydrochlorothiazide 25 mg 01/10/20 09:00 01/10/20 09:16 Hydrodiuril PO 25 mg DAILY LARRY Administration Hydromorphone HCl 0.5 mg 01/09/20 01:58 01/10/20 00:16 Dilaudid Inj Syringe IVP 0.5 mg Q2H PRN Administration PAIN Levothyroxine Sodium 50 mcg 01/09/20 07:00 01/10/20 06:11 Synthroid PO 50 mcg QDAC LARRY Administration Losartan Potassium 100 mg 01/10/20 09:00 01/10/20 09:16 Cozaar PO 100 mg DAILY LARRY Administration Ondansetron HCl 4 mg 01/08/20 17:00 01/09/20 18:43 Zofran Inj IVP 4 mg Q6HR PRN Administration Nausea / Vomiting Pantoprazole Sodium 40 mg 01/09/20 07:00 01/10/20 06:13 Protonix PO 40 mg QDAC LARRY Administration Sodium Chloride 10 ml 01/08/20 17:00 01/09/20 09:25 Normal Saline Flush 0.9% IVP 10 ml PRN PRN Administration NEEDED PER PROVIDER ORDERS Sodium Chloride 10 ml 01/08/20 17:00 01/10/20 09:17 Normal Saline Flush 0.9% IVP 10 ml 0100,0900,1700 LARRY Administration Sodium Chloride 10 ml 01/10/20 01:00 01/10/20 09:17 Normal Saline Flush 0.9% IVP Not Given 0100,0900,1700 LARRY - Physical Exam Wound/Incisions: positive: Dressing dry and intact General Appearance: positive: No acute distress, Alert Impression/Plan - Problem List Problem List: she is doing well postoperative day 1. Discontinue guzman, start PT and OT. ASA and foot pumps for DVT prophylaxis. Minimize need for narcotics.
--- NOTE | 2020-01-10 12:10 | PROVIDER PROGRESS NOTE ---
Assessment/Plan - Problem List (1) Closed right hip fracture Qualifiers: Encounter type: initial encounter Qualified Code(s): S72.001A - Fracture of unspecified part of neck of right femur, initial encounter for closed fracture Assessment/Plan: And this is status post operation for closed right hip fracture, we will continue PT/OT patient's therapist, will continue pain medication for pain control, will follow up with surgeon, Continue aspirin 325 mg twice daily for DVT prophylaxis (2) Hypertension Assessment/Plan: stable, continue Her home blood pressure meds. (3) Hypothyroidism Assessment/Plan: will check TSH, and continue Her home meds continue while here (4) Depression Assessment/Plan: stable, continue Her home meds continue while here - Current Meds Current Meds: Current Medications Generic Name Dose Route Start Last Admin Trade Name Freq PRN Reason Stop Dose Admin Hydrocodone Bitart/Acetaminophen 1 tab 01/09/20 01:58 01/09/20 11:59 [place] 5/325 PO 1 tab Q4HR PRN Administration PAIN Amlodipine Besylate 5 mg 01/09/20 01:59 01/09/20 21:58 Norvasc PO Not Given QPM LARRY Aspirin 325 mg 01/10/20 08:00 01/10/20 09:15 [place] PO 325 mg BIDWM LARRY Administration Hydrochlorothiazide 25 mg 01/10/20 09:00 01/10/20 09:16 Hydrodiuril PO 25 mg DAILY LARRY Administration Hydromorphone HCl 0.5 mg 01/09/20 01:58 01/10/20 00:16 Dilaudid Inj Syringe IVP 0.5 mg Q2H PRN Administration PAIN Levothyroxine Sodium 50 mcg 01/09/20 07:00 01/10/20 06:11 Synthroid PO 50 mcg QDAC LARRY Administration Losartan Potassium 100 mg 01/10/20 09:00 01/10/20 09:16 Cozaar PO 100 mg DAILY LARRY Administration Ondansetron HCl 4 mg 01/08/20 17:00 01/09/20 18:43 Zofran Inj IVP 4 mg Q6HR PRN Administration Nausea / Vomiting Pantoprazole Sodium 40 mg 01/09/20 07:00 01/10/20 06:13 Protonix PO 40 mg QDAC LARRY Administration Sodium Chloride 10 ml 01/08/20 17:00 01/09/20 09:25 Normal Saline Flush 0.9% IVP 10 ml PRN PRN Administration NEEDED PER PROVIDER ORDERS Sodium Chloride 10 ml 01/08/20 17:00 01/10/20 09:17 Normal Saline Flush 0.9% IVP 10 ml 0100,0900,1700 LARRY Administration Sodium Chloride 10 ml 01/10/20 01:00 01/10/20 09:17 Normal Saline Flush 0.9% IVP Not Given 0100,0900,1700 LARRY - Lab Result Fish Bone Diagrams: 01/10/20 04:50 01/10/20 04:50 - Additional Planning My Orders: My Active Orders 01/11/20 05:00 TSH [THYROID STIMULATING HORMONE] [IAI] DAILYLAB Subjective - Subjective Patient Reports: Feeling Better Objective Vital Signs: Vital Signs - 24 hr 01/09/20 01/09/20 01/09/20 15:38 21:33 21:35 Temperature 36.9 C 36.5 C 36.8 C Heart Rate 61 64 Heart Rate [ 65 Monitoring electrodes] Respiratory 19 12 14 Rate Blood Pressure 126/61 130/64 Blood Pressure 134/64 H [Left Brachial artery] Blood Pressure 143/75 H [Right Brachial artery] O2 Saturation 95 100 100 01/09/20 01/09/20 01/09/20 21:40 21:45 21:52 Temperature 36.8 C 36.5 C 36.5 C Heart Rate 70 77 66 Heart Rate [ Monitoring electrodes] Respiratory 14 16 15 Rate Blood Pressure 130/61 136/62 H 126/65 Blood Pressure [Left Brachial artery] Blood Pressure [Right Brachial artery] O2 Saturation 99 100 100 01/09/20 01/09/20 01/09/20 21:55 21:56 22:00 Temperature 37.0 C 36.3 C L 36.5 C Heart Rate 64 59 L Heart Rate [ 70 Monitoring electrodes] Respiratory 20 14 14 Rate Blood Pressure 135/67 H Blood Pressure [Left Brachial artery] Blood Pressure 119/56 L [Right Brachial artery] O2 Saturation 92 94 96 01/09/20 01/09/20 01/09/20 22:07 22:25 23:25 Temperature 36.5 C 36.4 C L 36.5 C Heart Rate 67 Heart Rate [ 66 70 Monitoring electrodes] Respiratory 16 20 14 Rate Blood Pressure 134/71 H Blood Pressure [Left Brachial artery] Blood Pressure 137/60 H 125/87 H [Right Brachial artery] O2 Saturation 95 94 97 01/10/20 01/10/20 01/10/20 00:25 04:25 08:25 Temperature 36.6 C 36.4 C L Heart Rate Heart Rate [ 68 70 70 Monitoring electrodes] Respiratory 16 16 16 Rate Blood Pressure Blood Pressure [Left Brachial artery] Blood Pressure 128/66 122/62 146/72 H [Right Brachial artery] O2 Saturation 94 94 97 01/10/20 09:09 Temperature 36.4 C L Heart Rate 83 Heart Rate [ Monitoring electrodes] Respiratory 14 Rate Blood Pressure Blood Pressure [Left Brachial artery] Blood Pressure [Right Brachial artery] O2 Saturation 98 Oxygen O2 Source Nasal cannula I&O (Last 24 Hrs): Intake and Output Totals x24h 01/08/20 01/09/20 01/10/20 23:59 23:59 23:59 Intake Total 650 2796.673 340 Output Total 520 823 5448 Balance 250 2196.673 -1035 General: Alert, Oriented x3, No acute distress HEENT: Atraumatic Neck: Supple Lymphatic: no adenopathy Neuro: Alert, Non Focal, Oriented Times 3 Cardiovascular: Regular rate, Normal S1, Normal S2 Respiratory: Chest non-tender, No respiratory distress, Breath sounds nml Abdomen: Normal bowel sounds, Soft Extremities: Normal pulses - Results Results: Laboratory Results WBC 9.8 x10^3/uL (4.8-10.8) 01/10/20 04:50 RBC 3.64 10^6/uL (4.20-5.40) L 01/10/20 04:50 Hgb 11.4 g/dL (12.0-16.0) L 01/10/20 04:50 Hct 34.0 % (37.0-47.0) L 01/10/20 04:50 MCV 93.4 fL (81.0-99.0) 01/10/20 04:50 MCH 31.3 pg (27.0-31.0) H 01/10/20 04:50 MCHC 33.5 g/dL (32.0-36.0) 01/10/20 04:50 RDW 12.2 % (12.0-15.0) 01/10/20 04:50 Plt Count 173 10^3/uL (130-450) 01/10/20 04:50 MPV 10.9 fL (7.9-10.8) H 01/10/20 04:50 Neut # (Auto) 9.0 10^3/uL (1.5-6.6) H 01/10/20 04:50 Lymph # (Auto) 0.4 10^3/uL (1.5-3.5) L 01/10/20 04:50 [place] # (Auto) 0.4 10^3/uL (0.0-1.0) 01/10/20 04:50 Eos # (Auto) 0.0 10^3/uL (0.0-0.7) 01/10/20 04:50 Baso # (Auto) 0.0 10^3/uL (0.0-0.1) 01/10/20 04:50 Absolute Nucleated RBC 0.00 x10^3/uL 01/10/20 04:50 Nucleated RBC % 0.0 /100WBC 01/10/20 04:50 PT 12.4 secs (9.9-12.6) 01/08/20 14:35 INR 1.1 (0.8-1.2) 01/08/20 14:35 APTT 30.7 secs (24.9-33.3) 01/08/20 14:35 Sodium 133 mmol/L (135-145) L 01/10/20 04:50 Potassium 3.9 mmol/L (3.5-5.0) 01/10/20 04:50 Chloride 100 mmol/L (101-111) L 01/10/20 04:50 Carbon Dioxide 25 mmol/L (21-32) 01/10/20 04:50 Anion Gap 8.0 (6-13) 01/10/20 04:50 BUN 8 mg/dL (6-20) 01/10/20 04:50 Creatinine 0.5 mg/dL (0.4-1.0) 01/10/20 04:50 Estimated GFR (MDRD) 120 (>89) 01/10/20 04:50 Glucose 178 mg/dL (70-100) H 01/10/20 04:50 Calcium 8.3 mg/dL (8.5-10.3) L 01/10/20 04:50 Total Bilirubin 0.9 mg/dL (0.2-1.0) 01/08/20 14:35 AST 24 IU/L (10-42) 01/08/20 14:35 ALT 25 IU/L (10-60) 01/08/20 14:35 Alkaline Phosphatase 105 IU/L (42-121) 01/08/20 14:35 Total Protein 6.8 g/dL (6.7-8.2) 01/08/20 14:35 Albumin 3.6 g/dL (3.2-5.5) 01/08/20 14:35 Globulin 3.2 g/dL (2.1-4.2) 01/08/20 14:35 Albumin/Globulin Ratio 1.1 (1.0-2.2) 01/08/20 14:35 Lipase 31 U/L (22-51) 01/08/20 14:35 Urine Color YELLOW 01/08/20 15:00 Urine Clarity CLEAR (CLEAR) 01/08/20 15:00 Urine pH 7.0 PH (5.0-7.5) 01/08/20 15:00 Ur Specific [place] 1.020 (1.002-1.030) 01/08/20 15:00 Urine Protein NEGATIVE mg/dL (NEGATIVE) 01/08/20 15:00 Urine Glucose (UA) NEGATIVE mg/dL (NEGATIVE) 01/08/20 15:00 Urine Ketones TRACE mg/dL (NEGATIVE) 01/08/20 15:00 Urine Occult Blood NEGATIVE (NEGATIVE) 01/08/20 15:00 Urine Nitrite NEGATIVE (NEGATIVE) 01/08/20 15:00 Urine Bilirubin NEGATIVE (NEGATIVE) 01/08/20 15:00 Urine Urobilinogen 0.2 (NORMAL) E.U./dL (NORMAL) 01/08/20 15:00 Ur Leukocyte Esterase NEGATIVE (NEGATIVE) 01/08/20 15:00 Ur Microscopic Review NOT INDICATED 01/08/20 15:00 Urine Culture Comments NOT INDICATED 01/08/20 15:00 Sepsis Event Note (H) - Evaluation Current Stage of Sepsis: Ruled out ABX Reporting Has patient been on IV antibiotics over the past 48 hours?: No Current Medications - Current Medications Current Medications: Active Medications Acetaminophen (Tylenol) 650 - 975 mg PO Q4HR PRN PRN Reason: PAIN Hydrocodone Bitart/Acetaminophen ([place] 5/325) 1 tab PO Q4HR PRN PRN Reason: PAIN Last Admin: 01/09/20 11:59 Dose: 1 tab Amlodipine Besylate (Norvasc) 5 mg PO QPM [facility] Last Admin: 01/09/20 21:58 Dose: Not Given Aspirin (Crista) 325 mg PO BIDWM [facility] Last Admin: 01/10/20 09:15 Dose: 325 mg Hydrochlorothiazide (Hydrodiuril) 25 mg PO DAILY [facility] Last Admin: 01/10/20 09:16 Dose: 25 mg Hydromorphone HCl (Dilaudid Inj Syringe) 0.5 mg IVP Q2H PRN PRN Reason: PAIN Last Admin: 01/10/20 00:16 Dose: 0.5 mg Levothyroxine Sodium (Synthroid) 50 mcg PO QDAC [facility] Last Admin: 01/10/20 06:11 Dose: 50 mcg Losartan Potassium (Cozaar) 100 mg PO DAILY [facility] Last Admin: 01/10/20 09:16 Dose: 100 mg Ondansetron HCl (Zofran Inj) 4 mg IVP Q6HR PRN PRN Reason: Nausea / Vomiting Last Admin: 01/09/20 18:43 Dose: 4 mg Pantoprazole Sodium (Protonix) 40 mg PO QDAC [facility] Last Admin: 01/10/20 06:13 Dose: 40 mg Prochlorperazine Edisylate (Compazine Inj) 10 mg IVP Q6HR PRN PRN Reason: Nausea / Vomiting Sodium Chloride (Normal Saline Flush 0.9%) 10 ml IVP PRN PRN PRN Reason: NEEDED PER PROVIDER ORDERS Last Admin: 01/09/20 09:25 Dose: 10 ml Sodium Chloride (Normal Saline Flush 0.9%) 10 ml IVP 0100,0900,1700 [facility] Last Admin: 01/10/20 09:17 Dose: 10 ml Sodium Chloride (Normal Saline Flush 0.9%) 10 ml IVP 0100,0900,1700 [facility] Last Admin: 01/10/20 09:17 Dose: Not Given Sodium Chloride (Normal Saline Flush 0.9%) 10 ml IVP PRN PRN PRN Reason: NEEDED PER PROVIDER ORDERS Citalopram [CeleXA] 40 mg PO DAILY 08/14/18 Levothyroxine [Synthroid] 50 mcg PO DAILY 08/14/18 Losartan/Hydrochlorothiazide [Losartan-Hctz 100-25 mg Tab] 1 tab PO DAILY 01/08/20 amLODIPine [Norvasc] 5 mg PO QPM 01/08/20
[2020-01-10] MEDS: HYDROcod/ACETAM 5/325 MG TABLET PO PRN ×2 (14:27→20:42)
[2020-01-10] MEDS: amLODIPine 5 MG TABLET PO SCH (20:28)
[2020-01-10] MEDS ORDERED: amLODIPine 5 MG TABLET PO SCH (21:00)
[2020-01-11] MEDS: HYDROcod/ACETAM 5/325 MG TABLET PO PRN ×2 (03:15→08:12)
[2020-01-11 05:14] LABS: BASOPHILS % (AUTO) 0.4 %; EOSINOPHILS # (AUTO) 0.2 10^3/uL (0.0-0.7); EOSINOPHILS % (AUTO) 2.5 %; LYMPHOCYTES # (AUTO) 1.2 10^3/uL (1.5-3.5); LYMPHOCYTES % (AUTO) 15.1 %; MEAN CORPUSCULAR HEMOGLOBIN 29.9 pg (27.0-31.0); MEAN CORPUSCULAR HGB CONC 32.1 g/dL (32.0-36.0); MEAN CORPUSCULAR VOLUME 93.1 fL (81.0-99.0); MEAN PLATELET VOLUME 10.8 fL (7.9-10.8); MONOCYTES # (AUTO) 0.8 10^3/uL (0.0-1.0); MONOCYTES % (AUTO) 10.3 %; NEUTROPHILS # (AUTO) 5.8 10^3/uL (1.5-6.6); NEUTROPHILS % (AUTO) 71.2 %; PLT - PLATELET COUNT 166 10^3/uL (130-450); RED BLOOD COUNT 3.35 10^6/uL (4.20-5.40); RED CELL DISTRIBUTION WIDTH 12.7 % (12.0-15.0); WHITE BLOOD COUNT 8.1 x10^3/uL (4.8-10.8)
[2020-01-11 05:23] LABS: CALCIUM 8.4 mg/dL (8.5-10.3); CREATININE 0.6 mg/dL (0.4-1.0)
[2020-01-11] MEDS: LEVOTHYROXINE 25 MCG TABLET PO SCH (06:46)
[2020-01-11] MEDS: PANTOPRAZOLE 40 MG TABLET PO SCH (06:46)
[2020-01-11] MEDS ORDERED: POTASSIUM CHLORIDE 20 MEQ TABLET PO SCH (07:09)
[2020-01-11] MEDS: ASPIRIN 325 MG TABLET PO SCH ×2 (07:55→17:17)
[2020-01-11] MEDS: LOSARTAN 50 MG TABLET PO SCH (08:05)
[2020-01-11] MEDS: hydroCHLOROthiazide 25 MG TABLET PO SCH (08:05)
[2020-01-11] MEDS: SODIUM CHLORIDE FLUSH 0.9% 10 ML SYRINGE IVP SCH ×4 (08:05→17:17)
[2020-01-11] MEDS: polyethylene glycoL 3350 17 GM PACKET PO SCH (09:22)
[2020-01-11] MEDS: HYDROmorphone 0.5 MG/0.5 ML SYRINGE IVP PRN (10:17)
--- NOTE | 2020-01-11 14:15 | PROVIDER PROGRESS NOTE ---
Assessment/Plan - Problem List (1) Closed right hip fracture Qualifiers: Encounter type: initial encounter Qualified Code(s): S72.001A - Fracture of unspecified part of neck of right femur, initial encounter for closed fracture Assessment/Plan: 01/10 Day two status post of operation. Continue physical therapist and occupational therapist, continue pain control And this is status post operation for closed right hip fracture, we will continue PT/OT patient's therapist, will continue pain medication for pain control, will follow up with surgeon, Continue aspirin 325 mg twice daily for DVT prophylaxis (2) Hypertension Assessment/Plan: stable, continue Her home blood pressure meds. (3) Hypothyroidism Assessment/Plan: 01/10 TSH is normal, continue Synthroid will check TSH, and continue Her home meds continue while here (4) Depression Assessment/Plan: stable, continue Her home meds continue while here - Current Meds Current Meds: Current Medications Generic Name Dose Route Start Last Admin Trade Name Freq PRN Reason Stop Dose Admin Hydrocodone Bitart/Acetaminophen 1 tab 01/09/20 01:58 01/11/20 08:12 [place] 5/325 PO 1 tab Q4HR PRN Administration PAIN Amlodipine Besylate 5 mg 01/09/20 01:59 01/10/20 20:28 Norvasc PO 5 mg QPM LARRY Administration Aspirin 325 mg 01/10/20 08:00 01/11/20 07:55 Crista PO 325 mg BIDWM LARRY Administration Hydrochlorothiazide 25 mg 01/10/20 09:00 01/11/20 08:05 Hydrodiuril PO 25 mg DAILY LARRY Administration Hydromorphone HCl 0.5 mg 01/09/20 01:58 01/11/20 10:17 Dilaudid Inj Syringe IVP 0.5 mg Q2H PRN Administration PAIN Levothyroxine Sodium 50 mcg 01/09/20 07:00 01/11/20 06:46 Synthroid PO 50 mcg QDAC LARRY Administration Losartan Potassium 100 mg 01/10/20 09:00 01/11/20 08:05 Cozaar PO 100 mg DAILY LARRY Administration Ondansetron HCl 4 mg 01/08/20 17:00 01/09/20 18:43 Zofran Inj IVP 4 mg Q6HR PRN Administration Nausea / Vomiting Pantoprazole Sodium 40 mg 01/09/20 07:00 01/11/20 06:46 Protonix PO 40 mg QDAC LARRY Administration Polyethylene Glycol 17 gm 01/11/20 09:00 01/11/20 09:22 Miralax PO 17 gm DAILY LARRY Administration Sodium Chloride 10 ml 01/08/20 17:00 01/09/20 09:25 Normal Saline Flush 0.9% IVP 10 ml PRN PRN Administration NEEDED PER PROVIDER ORDERS Sodium Chloride 10 ml 01/08/20 17:00 01/11/20 08:05 Normal Saline Flush 0.9% IVP 10 ml 0100,0900,1700 LARRY Administration Sodium Chloride 10 ml 01/10/20 01:00 01/11/20 09:22 Normal Saline Flush 0.9% IVP Not Given 0100,0900,1700 LARRY - Lab Result Fish Bone Diagrams: 01/11/20 04:50 01/11/20 04:50 - Additional Planning My Orders: My Active Orders 01/11/20 10:23 COVID-19 REFERENCE TEST Routine Subjective - Subjective Patient Reports: Feeling Better Nursing Reports: No Complaints Objective Vital Signs: Vital Signs - 24 hr 01/10/20 01/10/20 01/10/20 16:00 19:44 23:50 Temperature 37.3 C 36.9 C 36.6 C Heart Rate Heart Rate [ 77 74 67 Brachial] Respiratory 18 18 16 Rate Blood Pressure [Left Brachial artery] Blood Pressure 120/63 113/59 L 116/59 L [Right Brachial artery] O2 Saturation 93 96 96 01/11/20 01/11/20 01/11/20 03:10 07:57 12:32 Temperature 36.7 C 37.0 C 36.9 C Heart Rate Heart Rate [ 62 82 87 Brachial] Respiratory 16 16 20 Rate Blood Pressure 99/50 L [Left Brachial artery] Blood Pressure 112/55 L 127/73 [Right Brachial artery] O2 Saturation 94 96 97 01/11/20 12:36 Temperature 36.9 C Heart Rate 87 Heart Rate [ Brachial] Respiratory 20 Rate Blood Pressure [Left Brachial artery] Blood Pressure [Right Brachial artery] O2 Saturation 95 Oxygen O2 Source Room air I&O (Last 24 Hrs): Intake and Output Totals x24h 01/09/20 01/10/20 01/11/20 23:59 23:59 23:59 Intake Total 2796.673 1140 320 Output Total 600 3175 600 Balance 2196.673 -2035 -280 General: Alert, Oriented x3, No acute distress HEENT: Atraumatic Neck: Supple Lymphatic: no adenopathy Neuro: Alert, Non Focal, Oriented Times 3 Cardiovascular: Regular rate, Normal S1, Normal S2 Respiratory: Chest non-tender, No respiratory distress, Breath sounds nml Abdomen: Normal bowel sounds, Soft Extremities: Normal pulses - Results Results: Laboratory Results WBC 8.1 x10^3/uL (4.8-10.8) 01/11/20 04:50 RBC 3.35 10^6/uL (4.20-5.40) L 01/11/20 04:50 Hgb 10.0 g/dL (12.0-16.0) L 01/11/20 04:50 Hct 31.2 % (37.0-47.0) L 01/11/20 04:50 MCV 93.1 fL (81.0-99.0) 01/11/20 04:50 MCH 29.9 pg (27.0-31.0) 01/11/20 04:50 MCHC 32.1 g/dL (32.0-36.0) 01/11/20 04:50 RDW 12.7 % (12.0-15.0) 01/11/20 04:50 Plt Count 166 10^3/uL (130-450) 01/11/20 04:50 MPV 10.8 fL (7.9-10.8) 01/11/20 04:50 Neut # (Auto) 5.8 10^3/uL (1.5-6.6) 01/11/20 04:50 Lymph # (Auto) 1.2 10^3/uL (1.5-3.5) L 01/11/20 04:50 [place] # (Auto) 0.8 10^3/uL (0.0-1.0) 01/11/20 04:50 Eos # (Auto) 0.2 10^3/uL (0.0-0.7) 01/11/20 04:50 Baso # (Auto) 0.0 10^3/uL (0.0-0.1) 01/11/20 04:50 Absolute Nucleated RBC 0.00 x10^3/uL 01/11/20 04:50 Nucleated RBC % 0.0 /100WBC 01/11/20 04:50 PT 12.4 secs (9.9-12.6) 01/08/20 14:35 INR 1.1 (0.8-1.2) 01/08/20 14:35 APTT 30.7 secs (24.9-33.3) 01/08/20 14:35 Sodium 138 mmol/L (135-145) 01/11/20 04:50 Potassium 3.2 mmol/L (3.5-5.0) L 01/11/20 04:50 Chloride 100 mmol/L (101-111) L 01/11/20 04:50 Carbon Dioxide 29 mmol/L (21-32) 01/11/20 04:50 Anion Gap 9.0 (6-13) 01/11/20 04:50 BUN 14 mg/dL (6-20) 01/11/20 04:50 Creatinine 0.6 mg/dL (0.4-1.0) 01/11/20 04:50 Estimated GFR (MDRD) 97 (>89) 01/11/20 04:50 Glucose 117 mg/dL (70-100) H 01/11/20 04:50 Calcium 8.4 mg/dL (8.5-10.3) L 01/11/20 04:50 Total Bilirubin 0.9 mg/dL (0.2-1.0) 01/08/20 14:35 AST 24 IU/L (10-42) 01/08/20 14:35 ALT 25 IU/L (10-60) 01/08/20 14:35 Alkaline Phosphatase 105 IU/L (42-121) 01/08/20 14:35 Total Protein 6.8 g/dL (6.7-8.2) 01/08/20 14:35 Albumin 3.6 g/dL (3.2-5.5) 01/08/20 14:35 Globulin 3.2 g/dL (2.1-4.2) 01/08/20 14:35 Albumin/Globulin Ratio 1.1 (1.0-2.2) 01/08/20 14:35 Lipase 31 U/L (22-51) 01/08/20 14:35 TSH 0.54 uIU/mL (0.34-5.60) 01/11/20 04:50 Urine Color YELLOW 01/08/20 15:00 Urine Clarity CLEAR (CLEAR) 01/08/20 15:00 Urine pH 7.0 PH (5.0-7.5) 01/08/20 15:00 Ur Specific [place] 1.020 (1.002-1.030) 01/08/20 15:00 Urine Protein NEGATIVE mg/dL (NEGATIVE) 01/08/20 15:00 Urine Glucose (UA) NEGATIVE mg/dL (NEGATIVE) 01/08/20 15:00 Urine Ketones TRACE mg/dL (NEGATIVE) 01/08/20 15:00 Urine Occult Blood NEGATIVE (NEGATIVE) 01/08/20 15:00 Urine Nitrite NEGATIVE (NEGATIVE) 01/08/20 15:00 Urine Bilirubin NEGATIVE (NEGATIVE) 01/08/20 15:00 Urine Urobilinogen 0.2 (NORMAL) E.U./dL (NORMAL) 01/08/20 15:00 Ur Leukocyte Esterase NEGATIVE (NEGATIVE) 01/08/20 15:00 Ur Microscopic Review NOT INDICATED 01/08/20 15:00 Urine Culture Comments NOT INDICATED 01/08/20 15:00 Sepsis Event Note (H) - Evaluation Current Stage of Sepsis: Ruled out ABX Reporting Has patient been on IV antibiotics over the past 48 hours?: No Current Medications - Current Medications Current Medications: Active Medications Acetaminophen (Tylenol) 650 - 975 mg PO Q4HR PRN PRN Reason: PAIN Hydrocodone Bitart/Acetaminophen ([place] 5/325) 1 tab PO Q4HR PRN PRN Reason: PAIN Last Admin: 01/11/20 08:12 Dose: 1 tab Amlodipine Besylate (Norvasc) 5 mg PO QPM [facility] Last Admin: 01/10/20 20:28 Dose: 5 mg Aspirin (Crista) 325 mg PO BIDWM [facility] Last Admin: 01/11/20 07:55 Dose: 325 mg Hydrochlorothiazide (Hydrodiuril) 25 mg PO DAILY [facility] Last Admin: 01/11/20 08:05 Dose: 25 mg Hydromorphone HCl (Dilaudid Inj Syringe) 0.5 mg IVP Q2H PRN PRN Reason: PAIN Last Admin: 01/11/20 10:17 Dose: 0.5 mg Levothyroxine Sodium (Synthroid) 50 mcg PO QDAC [facility] Last Admin: 01/11/20 06:46 Dose: 50 mcg Losartan Potassium (Cozaar) 100 mg PO DAILY [facility] Last Admin: 01/11/20 08:05 Dose: 100 mg Ondansetron HCl (Zofran Inj) 4 mg IVP Q6HR PRN PRN Reason: Nausea / Vomiting Last Admin: 01/09/20 18:43 Dose: 4 mg Pantoprazole Sodium (Protonix) 40 mg PO QDAC [facility] Last Admin: 01/11/20 06:46 Dose: 40 mg Polyethylene Glycol (Miralax) 17 gm PO DAILY [facility] Last Admin: 01/11/20 09:22 Dose: 17 gm Prochlorperazine Edisylate (Compazine Inj) 10 mg IVP Q6HR PRN PRN Reason: Nausea / Vomiting Sodium Chloride (Normal Saline Flush 0.9%) 10 ml IVP PRN PRN PRN Reason: NEEDED PER PROVIDER ORDERS Last Admin: 01/09/20 09:25 Dose: 10 ml Sodium Chloride (Normal Saline Flush 0.9%) 10 ml IVP 0100,0900,1700 [facility] Last Admin: 01/11/20 08:05 Dose: 10 ml Sodium Chloride (Normal Saline Flush 0.9%) 10 ml IVP 0100,0900,1700 [facility] Last Admin: 01/11/20 09:22 Dose: Not Given Sodium Chloride (Normal Saline Flush 0.9%) 10 ml IVP PRN PRN PRN Reason: NEEDED PER PROVIDER ORDERS Citalopram [CeleXA] 40 mg PO DAILY 08/14/18 Levothyroxine [Synthroid] 50 mcg PO DAILY 08/14/18 Losartan/Hydrochlorothiazide [Losartan-Hctz 100-25 mg Tab] 1 tab PO DAILY 01/08/20 amLODIPine [Norvasc] 5 mg PO QPM 01/08/20
[2020-01-11] MEDS: ACETAMINOPHEN 325 MG TABLET PO PRN (18:23)
[2020-01-11] MEDS: amLODIPine 5 MG TABLET PO SCH (21:54)
[2020-01-12] MEDS: SODIUM CHLORIDE FLUSH 0.9% 10 ML SYRINGE IVP SCH ×6 (01:36→17:13)
[2020-01-12 05:51] LABS: BASOPHILS % (AUTO) 0.5 %; EOSINOPHILS # (AUTO) 0.4 10^3/uL (0.0-0.7); EOSINOPHILS % (AUTO) 4.4 %; HGB - HEMOGLOBIN 10.5 g/dL (12.0-16.0); LYMPHOCYTES # (AUTO) 1.1 10^3/uL (1.5-3.5); LYMPHOCYTES % (AUTO) 12.5 %; MEAN CORPUSCULAR HEMOGLOBIN 30.9 pg (27.0-31.0); MEAN CORPUSCULAR HGB CONC 32.9 g/dL (32.0-36.0); MEAN CORPUSCULAR VOLUME 93.8 fL (81.0-99.0); MEAN PLATELET VOLUME 11.1 fL (7.9-10.8); MONOCYTES % (AUTO) 11.4 %; NEUTROPHILS % (AUTO) 70.8 %; PLT - PLATELET COUNT 195 10^3/uL (130-450); RED CELL DISTRIBUTION WIDTH 12.5 % (12.0-15.0); WHITE BLOOD COUNT 8.5 x10^3/uL (4.8-10.8)
[2020-01-12 06:02] LABS: CALCIUM 8.8 mg/dL (8.5-10.3); CREATININE 0.6 mg/dL (0.4-1.0)
[2020-01-12] MEDS: PANTOPRAZOLE 40 MG TABLET PO SCH (06:06)
[2020-01-12] MEDS: LEVOTHYROXINE 25 MCG TABLET PO SCH (06:07)
[2020-01-12] MEDS: ASPIRIN 325 MG TABLET PO SCH ×2 (08:00→17:12)
--- NOTE | 2020-01-12 08:15 | PROVIDER PROGRESS NOTE ---
Subjective - General Admit Date: 01/08/20 Procedure Date: 01/09/20 Post Op Days: 3 Procedure Performed: hemiarthroplasty right hip - Review of Systems Wound/Incisions: positive: Dressing dry and intact General: positive: Other (She has good pain control to right hip, comfortable si tting in bed,) HEENT: positive: No symptoms Pulmonary: positive: No symptoms Cardiovascular: positive: No symptoms Gastrointestinal: positive: No symptoms Genitourinary: positive: No symptoms Musculoskeletal: positive: Joint pain Skin: positive: No symptoms Psychiatric: positive: No symptoms Objective - Patient Data Vital Signs: Vital Signs x48h Temp Pulse Resp BP Pulse Ox 01/12/20 08:00 36.7 C 91 16 134/87 H 98 Intake & Output: Intake and Output Totals x24h 01/10/20 01/11/20 01/12/20 23:59 23:59 23:59 Intake Total 1140 320 Output Total 3175 1050 600 Balance -2035 -730 -600 - Lab Results Lab Results: 01/12/20 05:05 01/12/20 05:05 Other Lab Results: Lab Results x24hrs 01/12/20 01/12/20 Range/Units 05:05 05:05 WBC 8.5 (4.8-10.8) x10^3/uL RBC 3.40 L (4.20-5.40) 10^6/uL Hgb 10.5 L (12.0-16.0) g/dL Hct 31.9 L (37.0-47.0) % MCV 93.8 (81.0-99.0) fL MCH 30.9 (27.0-31.0) pg MCHC 32.9 (32.0-36.0) g/dL RDW 12.5 (12.0-15.0) % Plt Count 195 (130-450) 10^3/uL MPV 11.1 H (7.9-10.8) fL Neut # (Auto) 6.0 (1.5-6.6) 10^3/uL Lymph # (Auto) 1.1 L (1.5-3.5) 10^3/uL [place] # (Auto) 1.0 (0.0-1.0) 10^3/uL Eos # (Auto) 0.4 (0.0-0.7) 10^3/uL Baso # (Auto) 0.0 (0.0-0.1) 10^3/uL Absolute Nucleated RBC 0.00 x10^3/uL Nucleated RBC % 0.0 /100WBC Sodium 140 (135-145) mmol/L Potassium 3.7 (3.5-5.0) mmol/L Chloride 102 (101-111) mmol/L Carbon Dioxide 29 (21-32) mmol/L Anion Gap 9.0 (6-13) BUN 12 (6-20) mg/dL Creatinine 0.6 (0.4-1.0) mg/dL Estimated GFR (MDRD) 97 (>89) Glucose 123 H (70-100) mg/dL Calcium 8.8 (8.5-10.3) mg/dL - Current Medications Current Medications: Current Medications Generic Name Dose Route Start Last Admin Trade Name Freq PRN Reason Stop Dose Admin Acetaminophen 650 - 975 mg 01/09/20 21:55 01/11/20 18:23 Tylenol PO 650 mg Q4HR PRN Administration PAIN Hydrocodone Bitart/Acetaminophen 1 tab 01/09/20 01:58 01/11/20 08:12 [place] 5/325 PO 1 tab Q4HR PRN Administration PAIN Amlodipine Besylate 5 mg 01/09/20 01:59 01/11/20 21:54 Norvasc PO 5 mg QPM LARRY Administration Aspirin 325 mg 01/10/20 08:00 01/12/20 08:00 Crista PO 325 mg BIDWM LARRY Administration Hydrochlorothiazide 25 mg 01/10/20 09:00 01/11/20 08:05 Hydrodiuril PO 25 mg DAILY LARRY Administration Hydromorphone HCl 0.5 mg 01/09/20 01:58 01/11/20 10:17 Dilaudid Inj Syringe IVP 0.5 mg Q2H PRN Administration PAIN Levothyroxine Sodium 50 mcg 01/09/20 07:00 01/12/20 06:07 Synthroid PO 50 mcg QDAC LARRY Administration Losartan Potassium 100 mg 01/10/20 09:00 01/11/20 08:05 Cozaar PO 100 mg DAILY LARRY Administration Ondansetron HCl 4 mg 01/08/20 17:00 01/09/20 18:43 Zofran Inj IVP 4 mg Q6HR PRN Administration Nausea / Vomiting Pantoprazole Sodium 40 mg 01/09/20 07:00 01/12/20 06:06 Protonix PO 40 mg QDAC LARRY Administration Polyethylene Glycol 17 gm 01/11/20 09:00 01/11/20 09:22 Miralax PO 17 gm DAILY LARRY Administration Sodium Chloride 10 ml 01/08/20 17:00 01/09/20 09:25 Normal Saline Flush 0.9% IVP 10 ml PRN PRN Administration NEEDED PER PROVIDER ORDERS Sodium Chloride 10 ml 01/08/20 17:00 01/12/20 01:36 Normal Saline Flush 0.9% IVP Not Given 0100,0900,1700 LARRY Sodium Chloride 10 ml 01/10/20 01:00 01/12/20 01:36 Normal Saline Flush 0.9% IVP Not Given 0100,0900,1700 LARRY - Physical Exam Wound/Incisions: positive: Healing well, Dressing dry and intact General Appearance: positive: No acute distress, Alert Skin: positive: Color nml (no hematomma about hip, right. Very good pain control. Progressing well with PT/OT) Neurologic/Psychiatric: positive: Oriented x3 Impression/Plan - Problem List Problem List: S/P right hip hemiarthroplasty: doing well, continue rehab with PT/OT Osteoporosis: Needs treatment, defer to primary care DVT prophylaxis: ASA 81 mg for 6 weeks Recheck in 6 weeks to [facility]
[2020-01-12] MEDS ORDERED: MORPHINE 2 MG/ML CARPUJECT IVP PRN (10:11)
[2020-01-12] MEDS: polyethylene glycoL 3350 17 GM PACKET PO SCH (10:18)
[2020-01-12] MEDS ORDERED: oxyCODONE 5 MG TABLET PO PRN (10:43)
[2020-01-12] MEDS: KETOROLAC 15 MG/ML VIAL IVP PRN (10:43)
[2020-01-12] MEDS: SODIUM CHLORIDE FLUSH 0.9% 10 ML SYRINGE IVP PRN (10:43)
[2020-01-12] MEDS: hydroCHLOROthiazide 25 MG TABLET PO SCH (10:47)
[2020-01-12] MEDS ORDERED: CITALOPRAM HYDROBROMIDE 20 MG TABLET PO SCH (11:00)
--- NOTE | 2020-01-12 11:54 | PROVIDER PROGRESS NOTE ---
Subjective - Prog Note Date Prog Note Date: 01/12/20 - Subjective Pt reports feeling: Improved Subjective: Patient's systolic blood pressure was dropped to 90 when patient tried to stand from the bed commode in the morning, patient also feels dizziness, feel she will pass out, and diaphoresis. She feels better after that she laid down in the bed, her systolic blood pressure return 120. Patient reported this happened before when she was in the hospital for another surgery special when she takes some pain medication. she also report she have very high blood pressure in the past, she reported blood pressure over 298. For this reason she has been on these blood pressure medicines about two years, she takes 2 blood pressure medicine, amlodipine and Losartan with HCTZ, she hope she can keep these medications for control of her blood pressure. Current Medications - Current Medications Current Medications: Active Medications Acetaminophen (Tylenol) 650 - 975 mg PO Q4HR PRN PRN Reason: PAIN Last Admin: 01/11/20 18:23 Dose: 650 mg Aspirin (Crista) 325 mg PO BIDWM [facility] Last Admin: 01/12/20 08:00 Dose: 325 mg Citalopram Hydrobromide (Celexa) 40 mg PO DAILY [facility] Hydrochlorothiazide (Hydrodiuril) 25 mg PO DAILY [facility] Last Admin: 01/12/20 10:47 Dose: Not Given Ketorolac Tromethamine (Toradol Inj (15mg)) 15 mg IVP Q6HR PRN PRN Reason: PAIN Stop: 01/17/20 10:08 Last Admin: 01/12/20 10:43 Dose: 15 mg Levothyroxine Sodium (Synthroid) 50 mcg PO QDAC [facility] Last Admin: 01/12/20 06:07 Dose: 50 mcg Losartan Potassium (Cozaar) 100 mg PO DAILY [facility] Ondansetron HCl (Zofran Inj) 4 mg IVP Q6HR PRN PRN Reason: Nausea / Vomiting Last Admin: 01/09/20 18:43 Dose: 4 mg Oxycodone HCl (Roxicodone) 5 mg PO Q4HR PRN PRN Reason: PAIN Pantoprazole Sodium (Protonix) 40 mg PO QDAC [facility] Last Admin: 01/12/20 06:06 Dose: 40 mg Polyethylene Glycol (Miralax) 17 gm PO DAILY [facility] Last Admin: 01/12/20 10:18 Dose: Not Given Prochlorperazine Edisylate (Compazine Inj) 10 mg IVP Q6HR PRN PRN Reason: Nausea / Vomiting Sodium Chloride (Normal Saline Flush 0.9%) 10 ml IVP PRN PRN PRN Reason: NEEDED PER PROVIDER ORDERS Last Admin: 01/12/20 10:43 Dose: 10 ml Sodium Chloride (Normal Saline Flush 0.9%) 10 ml IVP 0100,0900,1700 [facility] Last Admin: 01/12/20 09:02 Dose: Not Given Sodium Chloride (Normal Saline Flush 0.9%) 10 ml IVP 0100,0900,1700 [facility] Last Admin: 01/12/20 10:49 Dose: Not Given Sodium Chloride (Normal Saline Flush 0.9%) 10 ml IVP PRN PRN PRN Reason: NEEDED PER PROVIDER ORDERS Citalopram [CeleXA] 40 mg PO DAILY 08/14/18 Levothyroxine [Synthroid] 50 mcg PO DAILY 08/14/18 Losartan/Hydrochlorothiazide [Losartan-Hctz 100-25 mg Tab] 1 tab PO DAILY 01/08/20 amLODIPine [Norvasc] 5 mg PO QPM 01/08/20 Objective - Vital Signs/Intake & Output Vital Signs: Vital Signs x48h Temp Pulse Resp BP Pulse Ox 01/12/20 10:48 129/71 98 01/12/20 09:02 80 125/67 98 01/12/20 08:54 90 121/72 100 01/12/20 08:42 116 H 16 90/47 L 98 01/12/20 08:00 36.7 C 91 16 134/87 H 98 Intake & Output: Intake & Output 01/09/20 01/10/20 01/11/20 01/12/20 23:59 23:59 23:59 23:59 Intake Total 2796.673 1140 320 80 Output Total 600 3175 1050 600 Balance 2196.673 -2035 -730 -520 - Objective General Appearance: positive: No acute distress, Alert. negative: Lethargic Eyes Bilateral: positive: Normal inspection, PERRL, No lid inflammation ENT: positive: ENT inspection nml, Pharynx nml, No signs of dehydration. negative: Purulent nasal drainage Neck: positive: Nml inspection, Thyroid nml, No JVD, Trachea midline. negative: Thyromegaly, Stiff neck, Tracheal deviation Respiratory: positive: Chest non-tender, No respiratory distress, Breath sounds nml. negative: Wheezes, Rales, Rhonchi Cardiovascular: positive: Regular rate & rhythm, No murmur, No gallop. negative: Tachycardia, Bradycardia, Systolic murmur, Diastolic murmur Peripheral Pulses: 2+ Radial (R), 2+ Radial (L), 2+ Dorsalis pedis (R), 2+ Dorsalis pedis (L) Abdomen: positive: Non-tender, No organomegaly, Nml bowel sounds, No distention. negative: Tenderness, Guarding, Rebound Back: positive: Nml inspection. negative: CVA tenderness (R), CVA tenderness (L) Skin: positive: Color nml, No rash, Warm, Dry. negative: Cyanosis, Diaphoresis, Pallor Extremities: positive: Non-tender. negative: Calf tenderness, Julian's sign/cords Neurologic/Psychiatric: positive: Oriented x3, Sensation nml, Mood/affect nml. negative: Weakness, Sensory loss, Facial droop, Slurred/abnml speech, Depressed mood/affect - Lab Results Fish Bones: 01/12/20 05:05 01/12/20 05:05 Other Labs: Lab Results x24hrs 01/12/20 01/12/20 Range/Units 05:05 05:05 WBC 8.5 (4.8-10.8) x10^3/uL RBC 3.40 L (4.20-5.40) 10^6/uL Hgb 10.5 L (12.0-16.0) g/dL Hct 31.9 L (37.0-47.0) % MCV 93.8 (81.0-99.0) fL MCH 30.9 (27.0-31.0) pg MCHC 32.9 (32.0-36.0) g/dL RDW 12.5 (12.0-15.0) % Plt Count 195 (130-450) 10^3/uL MPV 11.1 H (7.9-10.8) fL Neut # (Auto) 6.0 (1.5-6.6) 10^3/uL Lymph # (Auto) 1.1 L (1.5-3.5) 10^3/uL [place] # (Auto) 1.0 (0.0-1.0) 10^3/uL Eos # (Auto) 0.4 (0.0-0.7) 10^3/uL Baso # (Auto) 0.0 (0.0-0.1) 10^3/uL Absolute Nucleated RBC 0.00 x10^3/uL Nucleated RBC % 0.0 /100WBC Sodium 140 (135-145) mmol/L Potassium 3.7 (3.5-5.0) mmol/L Chloride 102 (101-111) mmol/L Carbon Dioxide 29 (21-32) mmol/L Anion Gap 9.0 (6-13) BUN 12 (6-20) mg/dL Creatinine 0.6 (0.4-1.0) mg/dL Estimated GFR (MDRD) 97 (>89) Glucose 123 H (70-100) mg/dL Calcium 8.8 (8.5-10.3) mg/dL ABX Reporting Has patient been on IV antibiotics over the past 48 hours?: No Sepsis Event Note (H) - Evaluation Current Stage of Sepsis: Ruled out Assessment/Plan - Problem List (1) Closed right hip fracture Impression: 01/11, patient report she still has significant pain in the surgical site when she moved, she hesitate to try cooperative with PT/OT, we will change some pain medication regimens, will hold hydromorphone and [place], add Toradol, oxycodon, will continue PT/OT, continue aspirin for DVT prophylaxis. 01/10 Day two status post of operation. Continue physical therapist and occupational therapist, continue pain control And this is status post operation for closed right hip fracture, we will continue PT/OT patient's therapist, will continue pain medication for pain control, will follow up with surgeon, Continue aspirin 325 mg twice daily for DVT prophylaxis (2)orthostatic hypotension 01/11 when Patient stand, blood pressure dropped significantly, and with shaking and diaphoresis symptoms. patient is likely to have orthostatic hypotension, will check orthostatic hypotension, we will hold amlodipine, continue losartan and HCTZ, because the patient has significantly hypertension in the past. we will change Pain medication regimen as is above. Education to patient stand slowly and moves slowly, and prevention of fall. (3) Hypertension Assessment/Plan: stable, continue Her home blood pressure meds. (4) Hypothyroidism Assessment/Plan: 01/10 TSH is normal, continue Synthroid will check TSH, and continue Her home meds continue while here (5) Depression Assessment/Plan: 01/11 stable, continue Her home meds continue Celexa while here Qualifiers: Encounter type: initial encounter Qualified Code(s): S72.001A - Fracture of unspecified part of neck of right femur, initial encounter for closed fracture
[2020-01-12] MEDS ORDERED: SODIUM CHLORIDE 0.9% 1,000 ML IV SCH ×3 (14:00→19:11)
[2020-01-12] MEDS: CALCIUM CARBONATE CHEW 500 MG TABLET PO SCH (22:59)
[2020-01-13] MEDS: KETOROLAC 15 MG/ML VIAL IVP PRN ×4 (01:00→20:38)
[2020-01-13 05:02] LABS: BASOPHILS % (AUTO) 0.4 %; EOSINOPHILS # (AUTO) 0.3 10^3/uL (0.0-0.7); EOSINOPHILS % (AUTO) 4.6 %; HGB - HEMOGLOBIN 9.6 g/dL (12.0-16.0); LYMPHOCYTES # (AUTO) 1.4 10^3/uL (1.5-3.5); MEAN CORPUSCULAR HEMOGLOBIN 30.9 pg (27.0-31.0); MEAN CORPUSCULAR HGB CONC 33.3 g/dL (32.0-36.0); MEAN CORPUSCULAR VOLUME 92.6 fL (81.0-99.0); MEAN PLATELET VOLUME 10.8 fL (7.9-10.8); MONOCYTES # (AUTO) 0.7 10^3/uL (0.0-1.0); MONOCYTES % (AUTO) 10.2 %; NEUTROPHILS # (AUTO) 4.4 10^3/uL (1.5-6.6); NEUTROPHILS % (AUTO) 64.4 %; PLT - PLATELET COUNT 200 10^3/uL (130-450); RED BLOOD COUNT 3.11 10^6/uL (4.20-5.40); RED CELL DISTRIBUTION WIDTH 12.6 % (12.0-15.0); WHITE BLOOD COUNT 6.8 x10^3/uL (4.8-10.8)
[2020-01-13 05:09] LABS: CALCIUM 8.3 mg/dL (8.5-10.3); CREATININE 0.6 mg/dL (0.4-1.0)
[2020-01-13] MEDS: PANTOPRAZOLE 40 MG TABLET PO SCH (07:42)
[2020-01-13] MEDS: LEVOTHYROXINE 25 MCG TABLET PO SCH (07:42)
[2020-01-13] MEDS: SODIUM CHLORIDE FLUSH 0.9% 10 ML SYRINGE IVP SCH ×6 (07:42→19:54)
[2020-01-13 07:58] LABS: ABSOLUTE RETICS # AUTO 0.044 10^6/uL (0.020-0.110); RED BLOOD COUNT 3.16 10^6/uL (4.20-5.40)
[2020-01-13 08:07] LABS: % IRON SATURATION 14 % (20-50); IRON 30 ug/dL (28-170); TOTAL IRON BINDING CAPACITY 214 ug/dL (250-450); TRANSFERRIN 153 mg/dL (192-382)
[2020-01-13 08:12] LABS: FERRITIN 370.5 ng/mL (11.0-306.8)
[2020-01-13] MEDS ORDERED: LOSARTAN 50 MG TABLET PO SCH (09:00)
[2020-01-13] MEDS ORDERED: MIDODRINE 2.5 MG TABLET PO SCH (09:00)
[2020-01-13] MEDS: ASPIRIN 325 MG TABLET PO SCH ×2 (09:17→17:00)
[2020-01-13] MEDS: polyethylene glycoL 3350 17 GM PACKET PO SCH (09:17)
[2020-01-13] MEDS: CALCIUM CARBONATE CHEW 500 MG TABLET PO SCH ×2 (09:17→20:33)
[2020-01-13] MEDS: CHOLECALCIFEROL 25 MCG TABLET PO SCH (09:17)
--- NOTE | 2020-01-13 12:23 | PROVIDER PROGRESS NOTE ---
Subjective - Prog Note Date Prog Note Date: 01/13/20 - Subjective Pt reports feeling: Improved Subjective: Patient report she still feels dizziness but is better than yesterday when she stand up from bed and went to bed commode. This was happened twice. All patient blood pressure medicine were on hold now. Orthostatic vital signs check confirm patient is positive for orthostatic hypotension. Patient also report she has some numbness in right lower extremity. pt had right hip repaired by orthopedics surgeon. I called surgeon Dr. Jose Mota. he said he will see pt on this afternoon. I went to assess pt at the morning around 10am after I called megautam dhaliwal surgeon, pt had intact neurovascular examination on distal and proximal right lower extremity and normal skin color, did not indicate immediate medical attention now. Current Medications - Current Medications Current Medications: Active Medications Acetaminophen (Tylenol) 650 - 975 mg PO Q4HR PRN PRN Reason: PAIN Last Admin: 01/11/20 18:23 Dose: 650 mg Aspirin (Crista) 325 mg PO BIDWM [facility] Last Admin: 01/13/20 09:17 Dose: 325 mg Calcium Carbonate/Glycine (Tums) 500 mg PO BID [facility] Last Admin: 01/13/20 09:17 Dose: 500 mg Cholecalciferol (Vitamin D3) 50 mcg PO DAILY [facility] Last Admin: 01/13/20 09:17 Dose: 50 mcg Ketorolac Tromethamine (Toradol Inj (15mg)) 15 mg IVP Q6HR PRN PRN Reason: PAIN Stop: 01/17/20 10:08 Last Admin: 01/13/20 09:26 Dose: 15 mg Levothyroxine Sodium (Synthroid) 50 mcg PO QDAC [facility] Last Admin: 01/13/20 07:42 Dose: 50 mcg Midodrine () 2.5 mg PO TID [facility]CLUD[facility] Ondansetron HCl (Zofran Inj) 4 mg IVP Q6HR PRN PRN Reason: Nausea / Vomiting Last Admin: 01/09/20 18:43 Dose: 4 mg Oxycodone HCl (Roxicodone) 5 mg PO Q4HR PRN PRN Reason: PAIN Pantoprazole Sodium (Protonix) 40 mg PO QDAC [facility] Last Admin: 01/13/20 07:42 Dose: 40 mg Polyethylene Glycol (Miralax) 17 gm PO DAILY [facility] Last Admin: 01/13/20 09:17 Dose: Not Given Prochlorperazine Edisylate (Compazine Inj) 10 mg IVP Q6HR PRN PRN Reason: Nausea / Vomiting Sodium Chloride (Normal Saline Flush 0.9%) 10 ml IVP PRN PRN PRN Reason: NEEDED PER PROVIDER ORDERS Last Admin: 01/12/20 10:43 Dose: 10 ml Sodium Chloride (Normal Saline Flush 0.9%) 10 ml IVP 0100,0900,1700 [facility] Last Admin: 01/13/20 09:18 Dose: 10 ml Sodium Chloride (Normal Saline Flush 0.9%) 10 ml IVP 0100,0900,1700 [facility] Last Admin: 01/13/20 10:18 Dose: Not Given Sodium Chloride (Normal Saline Flush 0.9%) 10 ml IVP PRN PRN PRN Reason: NEEDED PER PROVIDER ORDERS Citalopram [CeleXA] 40 mg PO DAILY 08/14/18 Levothyroxine [Synthroid] 50 mcg PO DAILY 08/14/18 Losartan/Hydrochlorothiazide [Losartan-Hctz 100-25 mg Tab] 1 tab PO DAILY 01/08/20 amLODIPine [Norvasc] 5 mg PO QPM 01/08/20 Objective - Vital Signs/Intake & Output Vital Signs: Vital Signs x48h Temp Pulse Pulse Pulse Pulse Resp BP 01/13/20 07:55 88 70 79 01/13/20 07:48 36.7 C 79 16 129/61 BP BP BP Pulse Ox 01/13/20 07:55 114/66 107/70 129/61 01/13/20 07:48 99 Intake & Output: Intake & Output 01/10/20 01/11/20 01/12/20 01/13/20 23:59 23:59 23:59 23:59 Intake Total 8107 739 1421.667 480 Output Total 3175 1050 1000 Balance -5 -730 206.667 480 - Objective General Appearance: positive: No acute distress, Alert. negative: Lethargic Eyes Bilateral: positive: Normal inspection, PERRL, No lid inflammation ENT: positive: ENT inspection nml, Pharynx nml, No signs of dehydration. negative: Purulent nasal drainage Neck: positive: Nml inspection, Thyroid nml, No JVD, Trachea midline. negative: Thyromegaly, Stiff neck, Tracheal deviation Respiratory: positive: Chest non-tender, No respiratory distress, Breath sounds nml. negative: Wheezes, Rales, Rhonchi Cardiovascular: positive: Regular rate & rhythm, No murmur, No gallop. negative: Tachycardia, Bradycardia, Systolic murmur, Diastolic murmur Peripheral Pulses: 2+ Radial (R), 2+ Radial (L), 2+ Dorsalis pedis (R), 2+ Dorsalis pedis (L) Abdomen: positive: Non-tender, No organomegaly, Nml bowel sounds, No distention. negative: Tenderness, Guarding, Rebound Back: positive: Nml inspection, CVA tenderness (R). negative: CVA tenderness (L) Skin: positive: Color nml, No rash, Warm, Dry. negative: Cyanosis, Diaphoresis, Pallor Extremities: positive: Non-tender, Nml appearance. negative: Calf tenderness, Julian's sign/cords Neurologic/Psychiatric: positive: Oriented x3, Sensation nml, Mood/affect nml. negative: Weakness, Sensory loss, Facial droop, Slurred/abnml speech, Depressed mood/affect - Lab Results Fish Bones: 01/13/20 04:25 01/13/20 04:25 Other Labs: Lab Results x24hrs 01/13/20 01/13/20 01/13/20 Range/Units 04:25 04:25 04:25 WBC (4.8-10.8) x10^3/uL RBC (4.20-5.40) 10^6/uL Hgb (12.0-16.0) g/dL Hct (37.0-47.0) % MCV (81.0-99.0) fL MCH (27.0-31.0) pg MCHC (32.0-36.0) g/dL RDW (12.0-15.0) % Plt Count (130-450) 10^3/uL MPV (7.9-10.8) fL Reticulocyte % (Auto) (0.5-2.3) % Neut # (Auto) (1.5-6.6) 10^3/uL Lymph # (Auto) (1.5-3.5) 10^3/uL [place] # (Auto) (0.0-1.0) 10^3/uL Eos # (Auto) (0.0-0.7) 10^3/uL Baso # (Auto) (0.0-0.1) 10^3/uL Absolute Nucleated RBC x10^3/uL Nucleated RBC % /100WBC Absolute Retic (0.020-0.110) 10^6/uL Sodium (135-145) mmol/L Potassium (3.5-5.0) mmol/L Chloride (101-111) mmol/L Carbon Dioxide (21-32) mmol/L Anion Gap (6-13) BUN (6-20) mg/dL Creatinine (0.4-1.0) mg/dL Estimated GFR (MDRD) (>89) Glucose (70-100) mg/dL Calcium (8.5-10.3) mg/dL Iron 30 (28-170) ug/dL TIBC 214 L (250-450) ug/dL % Saturation 14 L (20-50) % Transferrin 153 L (192-382) mg/dL Ferritin 370.5 H (11.0-306.8) ng/mL Lactate Dehydrogenase 219 (91-225) IU/L Vitamin B12 247 (180-914) pg/mL Cortisol AM Sample ug/dL Coronavirus (PCR) 01/13/20 01/13/20 01/13/20 Range/Units 04:25 04:25 04:25 WBC (4.8-10.8) x10^3/uL RBC 3.16 L (4.20-5.40) 10^6/uL Hgb (12.0-16.0) g/dL Hct (37.0-47.0) % MCV (81.0-99.0) fL MCH (27.0-31.0) pg MCHC (32.0-36.0) g/dL RDW (12.0-15.0) % Plt Count (130-450) 10^3/uL MPV (7.9-10.8) fL Reticulocyte % (Auto) 1.38 (0.5-2.3) % Neut # (Auto) (1.5-6.6) 10^3/uL Lymph # (Auto) (1.5-3.5) 10^3/uL [place] # (Auto) (0.0-1.0) 10^3/uL Eos # (Auto) (0.0-0.7) 10^3/uL Baso # (Auto) (0.0-0.1) 10^3/uL Absolute Nucleated RBC x10^3/uL Nucleated RBC % /100WBC Absolute Retic 0.044 (0.020-0.110) 10^6/uL Sodium 139 (135-145) mmol/L Potassium 3.5 (3.5-5.0) mmol/L Chloride 103 (101-111) mmol/L Carbon Dioxide 25 (21-32) mmol/L Anion Gap 11.0 (6-13) BUN 18 (6-20) mg/dL Creatinine 0.6 (0.4-1.0) mg/dL Estimated GFR (MDRD) 97 (>89) Glucose 116 H (70-100) mg/dL Calcium 8.3 L (8.5-10.3) mg/dL Iron (28-170) ug/dL TIBC (250-450) ug/dL % Saturation (20-50) % Transferrin (192-382) mg/dL Ferritin (11.0-306.8) ng/mL Lactate Dehydrogenase (91-225) IU/L Vitamin B12 (180-914) pg/mL Cortisol AM Sample 5.8 ug/dL Coronavirus (PCR) 01/13/20 01/12/20 01/11/20 Range/Units 04:25 11:05 10:23 WBC 6.8 (4.8-10.8) x10^3/uL RBC 3.11 L (4.20-5.40) 10^6/uL Hgb 9.6 L (12.0-16.0) g/dL Hct 28.8 L (37.0-47.0) % MCV 92.6 (81.0-99.0) fL MCH 30.9 (27.0-31.0) pg MCHC 33.3 (32.0-36.0) g/dL RDW 12.6 (12.0-15.0) % Plt Count 200 (130-450) 10^3/uL MPV 10.8 (7.9-10.8) fL Reticulocyte % (Auto) (0.5-2.3) % Neut # (Auto) 4.4 (1.5-6.6) 10^3/uL Lymph # (Auto) 1.4 L (1.5-3.5) 10^3/uL [place] # (Auto) 0.7 (0.0-1.0) 10^3/uL Eos # (Auto) 0.3 (0.0-0.7) 10^3/uL Baso # (Auto) 0.0 (0.0-0.1) 10^3/uL Absolute Nucleated RBC 0.00 x10^3/uL Nucleated RBC % 0.0 /100WBC Absolute Retic (0.020-0.110) 10^6/uL Sodium (135-145) mmol/L Potassium (3.5-5.0) mmol/L Chloride (101-111) mmol/L Carbon Dioxide (21-32) mmol/L Anion Gap (6-13) BUN (6-20) mg/dL Creatinine (0.4-1.0) mg/dL Estimated GFR (MDRD) (>89) Glucose (70-100) mg/dL Calcium (8.5-10.3) mg/dL Iron (28-170) ug/dL TIBC (250-450) ug/dL % Saturation (20-50) % Transferrin (192-382) mg/dL Ferritin (11.0-306.8) ng/mL Lactate Dehydrogenase (91-225) IU/L Vitamin B12 (180-914) pg/mL Cortisol AM Sample ug/dL Coronavirus (PCR) NEGATIVE NEGATIVE ABX Reporting Has patient been on IV antibiotics over the past 48 hours?: No Sepsis Event Note (H) - Evaluation Current Stage of Sepsis: Ruled out Assessment/Plan - Problem List (1) Closed right hip fracture Impression: 01/12, patient report she has some numbness in the right lower extremity, I reported to the orthopedic surgeon, surgeon will see the patient on this afternoon, patient had intact neurovascular exam in patient right lower extremity on distal or proximal area. Continue physical therapy and occupational therapist, continue pain medication 01/11, patient report she still has significant pain in the surgical site when s he moved, she hesitate to try cooperative with PT/OT, we will change some pain medication regimens, will hold hydromorphone and [place], add Toradol, oxycodon, will continue PT/OT, continue aspirin for DVT prophylaxis. 01/10 Day two status post of operation. Continue physical therapist and occupational therapist, continue pain control And this is status post operation for closed right hip fracture, we will continue PT/OT patient's therapist, will continue pain medication for pain control, will follow up with surgeon, Continue aspirin 325 mg twice daily for DVT prophylaxis (2)orthostatic hypotension 01/12 Patient Reported she still has symptoms with dizzy and shaking when she tried to stand, but she feels better than yesterday, also orthostatic blood pressure check confirm patient has orthostatic hypotension, but it is better than yesterday. Yesterday pt's SBP was down to 90. today SBP is 107 when she tried to stand. Continue hold home blood pressure medicine, add 2.5mg tid of midodrive with meals. continue orthostatic hypotension vital signal check and nurse fall prevention. 01/11 when Patient stand, blood pressure dropped significantly, and with shaking and diaphoresis symptoms. patient is likely to have orthostatic hypotension, wi ll check orthostatic hypotension, we will hold amlodipine, continue losartan and HCTZ, because the patient has significantly hypertension in the past. we will change Pain medication regimen as is above. Education to patient stand slowly and moves slowly, and prevention of fall. (3) Hypothyroidism Assessment/Plan: 01/10 TSH is normal, continue Synthroid will check TSH, and continue Her home meds continue while here (4) Depression Assessment/Plan: 01/11 stable, continue Her home meds continue Celexa while here Qualifiers: Encounter type: initial encounter Qualified Code(s): S72.001A - Fracture of unspecified part of neck of right femur, initial encounter for closed fracture
[2020-01-13] MEDS: MIDODRINE 2.5 MG TABLET PO SCH ×2 (14:52→22:34)
--- NOTE | 2020-01-13 15:32 | PROVIDER PROGRESS NOTE ---
Subjective - General Admit Date: 01/08/20 Procedure Date: 01/09/20 Post Op Days: 4 Procedure Performed: hemiarthroplasty right hip - Review of Systems Wound/Incisions: positive: Healing well, Dressing dry and intact General: positive: Other (She is improving each day. She has good pain control. She is ambulating better) HEENT: positive: No symptoms Pulmonary: positive: No symptoms Cardiovascular: positive: No symptoms Gastrointestinal: positive: No symptoms Genitourinary: positive: No symptoms Musculoskeletal: positive: Joint pain Skin: positive: No symptoms Psychiatric: positive: No symptoms Objective - Patient Data Vital Signs: Vital Signs x48h Temp Pulse Pulse Pulse Pulse Resp BP 01/13/20 07:55 88 70 79 01/13/20 07:48 36.7 C 79 16 129/61 BP BP BP Pulse Ox 01/13/20 07:55 114/66 107/70 129/61 01/13/20 07:48 99 Intake & Output: Intake and Output Totals x24h 01/11/20 01/12/20 01/13/20 23:59 23:59 23:59 Intake Total 320 9830.829 1228 Output Total 1050 1000 200 Balance -730 206.667 920 - Lab Results Lab Results: 01/13/20 04:25 01/13/20 04:25 Other Lab Results: Lab Results x24hrs 01/13/20 01/13/20 01/13/20 Range/Units 04:25 04:25 04:25 WBC (4.8-10.8) x10^3/uL RBC (4.20-5.40) 10^6/uL Hgb (12.0-16.0) g/dL Hct (37.0-47.0) % MCV (81.0-99.0) fL MCH (27.0-31.0) pg MCHC (32.0-36.0) g/dL RDW (12.0-15.0) % Plt Count (130-450) 10^3/uL MPV (7.9-10.8) fL Reticulocyte % (Auto) (0.5-2.3) % Neut # (Auto) (1.5-6.6) 10^3/uL Lymph # (Auto) (1.5-3.5) 10^3/uL [place] # (Auto) (0.0-1.0) 10^3/uL Eos # (Auto) (0.0-0.7) 10^3/uL Baso # (Auto) (0.0-0.1) 10^3/uL Absolute Nucleated RBC x10^3/uL Nucleated RBC % /100WBC Absolute Retic (0.020-0.110) 10^6/uL Sodium (135-145) mmol/L Potassium (3.5-5.0) mmol/L Chloride (101-111) mmol/L Carbon Dioxide (21-32) mmol/L Anion Gap (6-13) BUN (6-20) mg/dL Creatinine (0.4-1.0) mg/dL Estimated GFR (MDRD) (>89) Glucose (70-100) mg/dL Calcium (8.5-10.3) mg/dL Iron 30 (28-170) ug/dL TIBC 214 L (250-450) ug/dL % Saturation 14 L (20-50) % Transferrin 153 L (192-382) mg/dL Ferritin 370.5 H (11.0-306.8) ng/mL Lactate Dehydrogenase 219 (91-225) IU/L Vitamin B12 247 (180-914) pg/mL Cortisol AM Sample ug/dL Coronavirus (PCR) 01/13/20 01/13/20 01/13/20 Range/Units 04:25 04:25 04:25 WBC (4.8-10.8) x10^3/uL RBC 3.16 L (4.20-5.40) 10^6/uL Hgb (12.0-16.0) g/dL Hct (37.0-47.0) % MCV (81.0-99.0) fL MCH (27.0-31.0) pg MCHC (32.0-36.0) g/dL RDW (12.0-15.0) % Plt Count (130-450) 10^3/uL MPV (7.9-10.8) fL Reticulocyte % (Auto) 1.38 (0.5-2.3) % Neut # (Auto) (1.5-6.6) 10^3/uL Lymph # (Auto) (1.5-3.5) 10^3/uL [place] # (Auto) (0.0-1.0) 10^3/uL Eos # (Auto) (0.0-0.7) 10^3/uL Baso # (Auto) (0.0-0.1) 10^3/uL Absolute Nucleated RBC x10^3/uL Nucleated RBC % /100WBC Absolute Retic 0.044 (0.020-0.110) 10^6/uL Sodium 139 (135-145) mmol/L Potassium 3.5 (3.5-5.0) mmol/L Chloride 103 (101-111) mmol/L Carbon Dioxide 25 (21-32) mmol/L Anion Gap 11.0 (6-13) BUN 18 (6-20) mg/dL Creatinine 0.6 (0.4-1.0) mg/dL Estimated GFR (MDRD) 97 (>89) Glucose 116 H (70-100) mg/dL Calcium 8.3 L (8.5-10.3) mg/dL Iron (28-170) ug/dL TIBC (250-450) ug/dL % Saturation (20-50) % Transferrin (192-382) mg/dL Ferritin (11.0-306.8) ng/mL Lactate Dehydrogenase (91-225) IU/L Vitamin B12 (180-914) pg/mL Cortisol AM Sample 5.8 ug/dL Coronavirus (PCR) 01/13/20 01/12/20 Range/Units 04:25 11:05 WBC 6.8 (4.8-10.8) x10^3/uL RBC 3.11 L (4.20-5.40) 10^6/uL Hgb 9.6 L (12.0-16.0) g/dL Hct 28.8 L (37.0-47.0) % MCV 92.6 (81.0-99.0) fL MCH 30.9 (27.0-31.0) pg MCHC 33.3 (32.0-36.0) g/dL RDW 12.6 (12.0-15.0) % Plt Count 200 (130-450) 10^3/uL MPV 10.8 (7.9-10.8) fL Reticulocyte % (Auto) (0.5-2.3) % Neut # (Auto) 4.4 (1.5-6.6) 10^3/uL Lymph # (Auto) 1.4 L (1.5-3.5) 10^3/uL [place] # (Auto) 0.7 (0.0-1.0) 10^3/uL Eos # (Auto) 0.3 (0.0-0.7) 10^3/uL Baso # (Auto) 0.0 (0.0-0.1) 10^3/uL Absolute Nucleated RBC 0.00 x10^3/uL Nucleated RBC % 0.0 /100WBC Absolute Retic (0.020-0.110) 10^6/uL Sodium (135-145) mmol/L Potassium (3.5-5.0) mmol/L Chloride (101-111) mmol/L Carbon Dioxide (21-32) mmol/L Anion Gap (6-13) BUN (6-20) mg/dL Creatinine (0.4-1.0) mg/dL Estimated GFR (MDRD) (>89) Glucose (70-100) mg/dL Calcium (8.5-10.3) mg/dL Iron (28-170) ug/dL TIBC (250-450) ug/dL % Saturation (20-50) % Transferrin (192-382) mg/dL Ferritin (11.0-306.8) ng/mL Lactate Dehydrogenase (91-225) IU/L Vitamin B12 (180-914) pg/mL Cortisol AM Sample ug/dL Coronavirus (PCR) NEGATIVE - Current Medications Current Medications: Current Medications Generic Name Dose Route Start Last Admin Trade Name Guillermo PRN Reason Stop Dose Admin Acetaminophen 650 - 975 mg 01/09/20 21:55 01/11/20 18:23 Tylenol PO 650 mg Q4HR PRN Administration PAIN Aspirin 325 mg 01/10/20 08:00 01/13/20 09:17 Crista PO 325 mg BIDWM LARRY Administration Calcium Carbonate/Glycine 500 mg 01/12/20 21:00 01/13/20 09:17 Tums PO 500 mg BID LARRY Administration Cholecalciferol 50 mcg 01/13/20 09:00 01/13/20 09:17 Vitamin D3 PO 50 mcg DAILY LARRY Administration Ketorolac Tromethamine 15 mg 01/12/20 10:09 01/13/20 14:42 Toradol Inj (15mg) IVP 01/17/20 10:08 15 mg Q6HR PRN Administration PAIN Levothyroxine Sodium 50 mcg 01/09/20 07:00 01/13/20 07:42 Synthroid PO 50 mcg QDAC LARRY Administration Midodrine 2.5 mg 01/13/20 09:00 01/13/20 14:52 PO Not Given TID LARRY Ondansetron HCl 4 mg 01/08/20 17:00 01/09/20 18:43 Zofran Inj IVP 4 mg Q6HR PRN Administration Nausea / Vomiting Pantoprazole Sodium 40 mg 01/09/20 07:00 01/13/20 07:42 Protonix PO 40 mg QDAC LARRY Administration Polyethylene Glycol 17 gm 01/11/20 09:00 01/13/20 09:17 Miralax PO Not Given DAILY LARRY Sodium Chloride 10 ml 01/08/20 17:00 01/12/20 10:43 Normal Saline Flush 0.9% IVP 10 ml PRN PRN Administration NEEDED PER PROVIDER ORDERS Sodium Chloride 10 ml 01/08/20 17:00 01/13/20 09:18 Normal Saline Flush 0.9% IVP 10 ml 0100,0900,1700 LARRY Administration Sodium Chloride 10 ml 01/10/20 01:00 01/13/20 10:18 Normal Saline Flush 0.9% IVP Not Given 0100,0900,1700 LARRY - Physical Exam Wound/Incisions: positive: Healing well, Dressing dry and intact, No drainage General Appearance: positive: No acute distress Comments/Other: Right hip has swelling but no sign of hematoma; no compartment syndrome. Mild decrease sensation to medial thigh; otherwise, completely normal neurologic function to right leg Impression/Plan - Problem List Problem List: She should continue present treatment with PT/OT. She is making daily improvement. Discharge when appropriate placement is available with previous recommendations.
[2020-01-13] MEDS: ACETAMINOPHEN 325 MG TABLET PO PRN (17:57)
[2020-01-14] MEDS: SODIUM CHLORIDE FLUSH 0.9% 10 ML SYRINGE IVP SCH ×8 (00:54→23:37)
[2020-01-14] MEDS: MIDODRINE 2.5 MG TABLET PO SCH (04:32)
[2020-01-14] MEDS: LEVOTHYROXINE 25 MCG TABLET PO SCH (05:54)
[2020-01-14] MEDS: PANTOPRAZOLE 40 MG TABLET PO SCH (05:54)
[2020-01-14] MEDS: CHOLECALCIFEROL 25 MCG TABLET PO SCH (08:16)
[2020-01-14] MEDS: ASPIRIN 325 MG TABLET PO SCH ×2 (08:16→17:33)
[2020-01-14] MEDS: CALCIUM CARBONATE CHEW 500 MG TABLET PO SCH ×2 (08:16→20:31)
[2020-01-14] MEDS: polyethylene glycoL 3350 17 GM PACKET PO SCH (08:16)
[2020-01-14] MEDS ORDERED: amLODIPine 5 MG TABLET PO SCH (10:11)
--- NOTE | 2020-01-14 10:20 | PROVIDER PROGRESS NOTE ---
Subjective - General Admit Date: 01/08/20 Procedure Date: 01/09/20 Post Op Days: 5 Procedure Performed: hemiarthroplasty right hip - Review of Systems Wound/Incisions: positive: Healing well, Dressing dry and intact, No drainage General: positive: Other (She is improving each day. She has good pain control. She is ambulating better) HEENT: positive: No symptoms Pulmonary: positive: No symptoms Cardiovascular: positive: No symptoms Gastrointestinal: positive: No symptoms Genitourinary: positive: No symptoms Musculoskeletal: positive: Joint pain Skin: positive: No symptoms Psychiatric: positive: No symptoms Objective - Patient Data Vital Signs: Vital Signs x48h Temp Pulse Pulse Pulse Pulse Resp BP 01/14/20 07:35 78 79 74 01/14/20 07:30 37.0 C 73 16 164/78 H 01/14/20 06:00 75 81 74 BP BP BP Pulse Ox 01/14/20 07:35 152/82 H 145/80 H 160/79 H 01/14/20 07:30 96 01/14/20 06:00 154/63 H 141/78 H 164/81 H Intake & Output: Intake and Output Totals x24h 01/12/20 01/13/20 01/14/20 23:59 23:59 23:59 Intake Total 1247.209 8886 300 Output Total 1000 200 200 Balance 206.667 920 100 - Lab Results Lab Results: 01/13/20 04:25 01/13/20 04:25 - Current Medications Current Medications: Current Medications Generic Name Dose Route Start Last Admin Trade Name Freq PRN Reason Stop Dose Admin Acetaminophen 650 - 975 mg 01/09/20 21:55 01/13/20 17:57 Tylenol PO 650 mg Q4HR PRN Administration PAIN Aspirin 325 mg 01/10/20 08:00 01/14/20 08:16 Crista PO 325 mg BIDWM LARRY Administration Calcium Carbonate/Glycine 500 mg 01/12/20 21:00 01/14/20 08:16 Tums PO 500 mg BID LARRY Administration Cholecalciferol 50 mcg 01/13/20 09:00 01/14/20 08:16 Vitamin D3 PO 50 mcg DAILY LARRY Administration Ketorolac Tromethamine 15 mg 01/12/20 10:09 01/13/20 20:38 Toradol Inj (15mg) IVP 01/17/20 10:08 15 mg Q6HR PRN Administration PAIN Levothyroxine Sodium 50 mcg 01/09/20 07:00 01/14/20 05:54 Synthroid PO 50 mcg QDAC LARRY Administration Pantoprazole Sodium 40 mg 01/09/20 07:00 01/14/20 05:54 Protonix PO 40 mg QDAC LARRY Administration Polyethylene Glycol 17 gm 01/11/20 09:00 01/14/20 08:16 Miralax PO Not Given DAILY LARRY Sodium Chloride 10 ml 01/08/20 17:00 01/12/20 10:43 Normal Saline Flush 0.9% IVP 10 ml PRN PRN Administration NEEDED PER PROVIDER ORDERS Sodium Chloride 10 ml 01/08/20 17:00 01/14/20 08:16 Normal Saline Flush 0.9% IVP 10 ml 0100,0900,1700 LARRY Administration Sodium Chloride 10 ml 01/10/20 01:00 01/14/20 08:20 Normal Saline Flush 0.9% IVP Not Given 0100,0900,1700 LARRY - Physical Exam Wound/Incisions: positive: Healing well, Dressing dry and intact, No drainage General Appearance: positive: No acute distress, Alert Extremities: positive: Other (Swelling to thigh is less on right side. Her incision and dressing are clean and dry. Neurovascular is intact to right lower extremity. She is making progress with her gait.) Impression/Plan - Problem List Problem List: She is making steady progress with her right hip hemiarthroplasty. Her pain is under good control. She is making daily gains in her ability to ambulate. She does have some weakness to the right lower extremity in comparison to the left but this is improving each day. She needs to continue with physical therapy and Occupational Therapy, weightbearing as tolerated for her right leg using a walker. She needs to continue with aspirin deep venous thrombosis prophylaxis for approximately another 4 to 6 weeks. She can be evaluated for osteoporosis treatment by primary care as well. She is likely to be transferred on Thursday. I would like to see her in follow-up in the orthopedic clinic in [place] in approximately 6 weeks
[2020-01-14] MEDS: KETOROLAC 15 MG/ML VIAL IVP PRN ×2 (14:24→23:37)
--- NOTE | 2020-01-14 14:57 | Ultrasound Report ---
PROCEDURE: Duplex Ext Veins Bilateral INDICATIONS: Bilateral calf pain, status post hip surgery. TECHNIQUE: Real-time imaging, as well as color and pulse Doppler interrogation, were performed of the deep veins of both legs from the inguinal ligament to the popliteal fossa. COMPARISON: None FINDINGS: The deep veins are normally compressible, and free of intraluminal thrombus. Color and pu lse Doppler demonstrate normal phasic intravascular flow. There is normal augmentation response to d istal compression maneuver. Superficial venous thrombosis is seen involving the medial calf. IMPRESSION: Superficial venous thrombosis is seen involving the medial calf. No findings of deep venous thrombosis are seen on either side. Reviewed by: Derek Benz MD on 01/14/2020 1:55 PM MILES Approved by: Derek Benz MD on 01/14/2020 1:55 PM MILES Station ID: [id number]
--- NOTE | 2020-01-14 16:14 | PROVIDER PROGRESS NOTE ---
Assessment/Plan - Problem List (1) Thrombophlebitis of superficial vein of lower leg Assessment/Plan: Duplex venous Dopplers were ordered. She has no DVT. She does have a superficial venous thrombosis of the medial calf on the right side only. I called the orthopedic surgeon, Dr. Gonzalez, and described this. He advised continuing to aspirin daily, not changing to nonsteroidal of other kind. He thinks she does not need to undergo CT venogram to locate the spot since this is superficial. He stated that using Xarelto was optional. I spoke to the patient about the result. I offered heat and cold, TEDS compression stockings and to continue on this aspirin (antiplatelet management). The patient would like to try LAYA stockings. Will order TEDS and continue with SCDs. We will continue with aspirin daily. This needs a follow-up exam looking for DVT in 7 days (according to UpToDate). (2) Closed right hip fracture Assessment/Plan: She POD # 5 and working with PT, pain under good control, but R leg is "very weak" she says. On 01/12, patient reported she has some numbness in the right lower extremity, which was reported to the orthopedic surgeon who saw the patient. She had intact neurovascular exam in thr right lower extremity on distal and proximal area. Today she had new bilat calf pain R>L and Dopplers were done (see #1). Discharge to a SNF is being arranged. (3) Hypertension Assessment/Plan: She had low blood pressure in the days after surgery and the home BP meds were never restarted. 2 days ago she had orthostasis that was severe, she was very symptomatic and she needed fluids, Midodrin was to be started. The patient refused to take the Midodrin, worrying about getting severe hypertension, as she has had in the past when blood pressure was greater than 250 systolic. Today several sets of orthostatic checks are normal and her BP meds can be resumed, one by one and at lower doses. This was explained to the patient. Amlodipine 2.5 mg starting today will begin, increased to 5 mg tomorrow ki diez. (4) Hypothyroidism Assessment/Plan: Her TSH is OK, she is on her home dose of Synthroid. (5) Depression Assessment/Plan: Her home Citalopram is ordered to use here. - Current Meds Current Meds: Current Medications Generic Name Dose Route Start Last Admin Trade Name Ryanq PRN Reason Stop Dose Admin Acetaminophen 650 - 975 mg 01/09/20 21:55 01/13/20 17:57 Tylenol PO 650 mg Q4HR PRN Administration PAIN Amlodipine Besylate 2.5 mg 01/14/20 10:11 01/14/20 11:20 Norvasc PO 2.5 mg DAILY LARRY Administration Aspirin 325 mg 01/10/20 08:00 01/14/20 08:16 Crista PO 325 mg BIDWM LARRY Administration Calcium Carbonate/Glycine 500 mg 01/12/20 21:00 01/14/20 08:16 Tums PO 500 mg BID LARRY Administration Cholecalciferol 50 mcg 01/13/20 09:00 01/14/20 08:16 Vitamin D3 PO 50 mcg DAILY LARRY Administration Ketorolac Tromethamine 15 mg 01/12/20 10:09 01/14/20 14:24 Toradol Inj (15mg) IVP 01/17/20 10:08 15 mg Q6HR PRN Administration PAIN Levothyroxine Sodium 50 mcg 01/09/20 07:00 01/14/20 05:54 Synthroid PO 50 mcg QDAC LARRY Administration Pantoprazole Sodium 40 mg 01/09/20 07:00 01/14/20 05:54 Protonix PO 40 mg QDAC LARRY Administration Polyethylene Glycol 17 gm 01/11/20 09:00 01/14/20 08:16 Miralax PO Not Given DAILY LARRY Sodium Chloride 10 ml 01/08/20 17:00 01/12/20 10:43 Normal Saline Flush 0.9% IVP 10 ml PRN PRN Administration NEEDED PER PROVIDER ORDERS Sodium Chloride 10 ml 01/08/20 17:00 01/14/20 08:16 Normal Saline Flush 0.9% IVP 10 ml 0100,0900,1700 LARRY Administration Sodium Chloride 10 ml 01/10/20 01:00 01/14/20 08:20 Normal Saline Flush 0.9% IVP Not Given 0100,0900,1700 LARRY - Lab Result Fish Bone Diagrams: 01/13/20 04:25 01/13/20 04:25 - Additional Planning My Orders: My Active Orders 01/14/20 10:11 amLODIPine [Norvasc] 2.5 mg PO DAILY Subjective - Subjective Patient Reports: Pain (Pain in both ankles radiating up to both calves. The pain is greater on the right than left. There is no redness.) Objective Vital Signs: Vital Signs - 24 hr 01/13/20 01/14/20 01/14/20 16:45 01:00 06:00 Temperature 36.8 C Heart Rate [ 78 Brachial] Heart Rate [ 88 75 Sitting (After 1 Minute)] Heart Rate [ 85 81 Standing (After 1 Minute)] Heart Rate [ 82 74 Supine] Respiratory 20 Rate Blood Pressure 167/81 H [Right Brachial artery] Blood Pressure 166/81 H 154/63 H [Sitting (After 1 Minute)] Blood Pressure 137/83 H 141/78 H [Standing ( After 1 Minute) ] Blood Pressure 137/88 H 164/81 H [Supine] O2 Saturation 98 01/14/20 01/14/20 01/14/20 07:30 07:35 15:43 Temperature 37.0 C 37.3 C Heart Rate [ 73 80 Brachial] Heart Rate [ 78 Sitting (After 1 Minute)] Heart Rate [ 79 Standing (After 1 Minute)] Heart Rate [ 74 Supine] Respiratory 16 18 Rate Blood Pressure 164/78 H 158/76 H [Right Brachial artery] Blood Pressure 152/82 H [Sitting (After 1 Minute)] Blood Pressure 145/80 H [Standing ( After 1 Minute) ] Blood Pressure 160/79 H [Supine] O2 Saturation 96 98 01/14/20 15:51 Temperature 37.3 C Heart Rate [ 79 Brachial] Heart Rate [ Sitting (After 1 Minute)] Heart Rate [ Standing (After 1 Minute)] Heart Rate [ Supine] Respiratory 20 Rate Blood Pressure 141/74 H [Right Brachial artery] Blood Pressure [Sitting (After 1 Minute)] Blood Pressure [Standing ( After 1 Minute) ] Blood Pressure [Supine] O2 Saturation 96 Oxygen O2 Source Room air I&O (Last 24 Hrs): Intake and Output Totals x24h 01/12/20 01/13/20 01/14/20 23:59 23:59 23:59 Intake Total 1055.958 3127 740 Output Total 1000 200 200 Balance 206.667 920 540 General: Alert, Oriented x3 HEENT: EOMI, Mucous membr. moist/pink Neck: Supple Neuro: Alert, Non Focal Cardiovascular: Regular rate Respiratory: No respiratory distress Abdomen: Soft Extremities: No clubbing, No edema, No tenderness/swelling, Other (No cords) - Results Results: Laboratory Results WBC 6.8 x10^3/uL (4.8-10.8) 01/13/20 04:25 RBC 3.16 10^6/uL (4.20-5.40) L 01/13/20 04:25 Hgb 9.6 g/dL (12.0-16.0) L 01/13/20 04:25 Hct 28.8 % (37.0-47.0) L 01/13/20 04:25 MCV 92.6 fL (81.0-99.0) 01/13/20 04:25 MCH 30.9 pg (27.0-31.0) 01/13/20 04:25 MCHC 33.3 g/dL (32.0-36.0) 01/13/20 04:25 RDW 12.6 % (12.0-15.0) 01/13/20 04:25 Plt Count 200 10^3/uL (130-450) 01/13/20 04:25 MPV 10.8 fL (7.9-10.8) 01/13/20 04:25 Reticulocyte % (Auto) 1.38 % (0.5-2.3) 01/13/20 04:25 Neut # (Auto) 4.4 10^3/uL (1.5-6.6) 01/13/20 04:25 Lymph # (Auto) 1.4 10^3/uL (1.5-3.5) L 01/13/20 04:25 [place] # (Auto) 0.7 10^3/uL (0.0-1.0) 01/13/20 04:25 Eos # (Auto) 0.3 10^3/uL (0.0-0.7) 01/13/20 04:25 Baso # (Auto) 0.0 10^3/uL (0.0-0.1) 01/13/20 04:25 Absolute Nucleated RBC 0.00 x10^3/uL 01/13/20 04:25 Nucleated RBC % 0.0 /100WBC 01/13/20 04:25 Absolute Retic 0.044 10^6/uL (0.020-0.110) 01/13/20 04:25 PT 12.4 secs (9.9-12.6) 01/08/20 14:35 INR 1.1 (0.8-1.2) 01/08/20 14:35 APTT 30.7 secs (24.9-33.3) 01/08/20 14:35 Sodium 139 mmol/L (135-145) 01/13/20 04:25 Potassium 3.5 mmol/L (3.5-5.0) 01/13/20 04:25 Chloride 103 mmol/L (101-111) 01/13/20 04:25 Carbon Dioxide 25 mmol/L (21-32) 01/13/20 04:25 Anion Gap 11.0 (6-13) 01/13/20 04:25 BUN 18 mg/dL (6-20) 01/13/20 04:25 Creatinine 0.6 mg/dL (0.4-1.0) 01/13/20 04:25 Estimated GFR (MDRD) 97 (>89) 01/13/20 04:25 Glucose 116 mg/dL (70-100) H 01/13/20 04:25 Calcium 8.3 mg/dL (8.5-10.3) L 01/13/20 04:25 Iron 30 ug/dL (28-170) 01/13/20 04:25 TIBC 214 ug/dL (250-450) L 01/13/20 04:25 % Saturation 14 % (20-50) L 01/13/20 04:25 Transferrin 153 mg/dL (192-382) L 01/13/20 04:25 Ferritin 370.5 ng/mL (11.0-306.8) H 01/13/20 04:25 Total Bilirubin 0.9 mg/dL (0.2-1.0) 01/08/20 14:35 AST 24 IU/L (10-42) 01/08/20 14:35 ALT 25 IU/L (10-60) 01/08/20 14:35 Alkaline Phosphatase 105 IU/L (42-121) 01/08/20 14:35 Lactate Dehydrogenase 219 IU/L (91-225) 01/13/20 04:25 Total Protein 6.8 g/dL (6.7-8.2) 01/08/20 14:35 Albumin 3.6 g/dL (3.2-5.5) 01/08/20 14:35 Globulin 3.2 g/dL (2.1-4.2) 01/08/20 14:35 Albumin/Globulin Ratio 1.1 (1.0-2.2) 01/08/20 14:35 Lipase 31 U/L (22-51) 01/08/20 14:35 Vitamin B12 247 pg/mL (180-914) 01/13/20 04:25 TSH 0.54 uIU/mL (0.34-5.60) 01/11/20 04:50 Cortisol AM Sample 5.8 ug/dL 01/13/20 04:25 Urine Color YELLOW 01/08/20 15:00 Urine Clarity CLEAR (CLEAR) 01/08/20 15:00 Urine pH 7.0 PH (5.0-7.5) 01/08/20 15:00 Ur Specific [place] 1.020 (1.002-1.030) 01/08/20 15:00 Urine Protein NEGATIVE mg/dL (NEGATIVE) 01/08/20 15:00 Urine Glucose (UA) NEGATIVE mg/dL (NEGATIVE) 01/08/20 15:00 Urine Ketones TRACE mg/dL (NEGATIVE) 01/08/20 15:00 Urine Occult Blood NEGATIVE (NEGATIVE) 01/08/20 15:00 Urine Nitrite NEGATIVE (NEGATIVE) 01/08/20 15:00 Urine Bilirubin NEGATIVE (NEGATIVE) 01/08/20 15:00 Urine Urobilinogen 0.2 (NORMAL) E.U./dL (NORMAL) 01/08/20 15:00 Ur Leukocyte Esterase NEGATIVE (NEGATIVE) 01/08/20 15:00 Ur Microscopic Review NOT INDICATED 01/08/20 15:00 Urine Culture Comments NOT INDICATED 01/08/20 15:00 Coronavirus (PCR) NEGATIVE 01/12/20 11:05 Sepsis Event Note (H) - Evaluation Current Stage of Sepsis: Ruled out
[2020-01-14] MEDS: ACETAMINOPHEN 325 MG TABLET PO PRN (20:29)
[2020-01-15] MEDS: LEVOTHYROXINE 25 MCG TABLET PO SCH (06:27)
[2020-01-15] MEDS: PANTOPRAZOLE 40 MG TABLET PO SCH (06:27)
[2020-01-15] MEDS: amLODIPine 5 MG TABLET PO SCH (08:51)
[2020-01-15] MEDS: CHOLECALCIFEROL 25 MCG TABLET PO SCH (08:51)
[2020-01-15] MEDS: CALCIUM CARBONATE CHEW 500 MG TABLET PO SCH ×2 (08:51→21:11)
[2020-01-15] MEDS: ASPIRIN 325 MG TABLET PO SCH ×2 (08:51→17:56)
[2020-01-15] MEDS: SODIUM CHLORIDE FLUSH 0.9% 10 ML SYRINGE IVP SCH ×5 (08:52→23:58)
[2020-01-15] MEDS: polyethylene glycoL 3350 17 GM PACKET PO SCH (08:52)
--- NOTE | 2020-01-15 11:03 | PROVIDER PROGRESS NOTE ---
Subjective - General Admit Date: 01/08/20 Procedure Date: 01/09/20 Post Op Days: 6 Procedure Performed: hemiarthroplasty right hip - Review of Systems Wound/Incisions: positive: Healing well, Dressing dry and intact, No drainage General: positive: Other (She is improving each day. She has good pain control. She is ambulating better) HEENT: positive: No symptoms Pulmonary: positive: No symptoms Cardiovascular: positive: No symptoms Gastrointestinal: positive: No symptoms Genitourinary: positive: No symptoms Musculoskeletal: positive: Joint pain, Other (Her pain to her right hip is mild and well-controlled. She had some pain in her lower extremity, a superficial venous thrombosis was detected on ultrasound. She is minimally symptomatic and is not complaining of leg pain. She does have weakness to the right lower extremity which is improving each day with better motion to ankle, knee and hip actively. She has normal sensation to her lower extremity.) Skin: positive: No symptoms Neurological: Psychiatric: positive: No symptoms Objective - Patient Data Vital Signs: Vital Signs x48h Temp Pulse Pulse Pulse Pulse Resp BP 01/15/20 09:58 73 138/71 H 01/15/20 08:00 74 80 96 74 158/76 H 01/15/20 07:40 37.2 C 69 18 173/81 H BP BP BP Pulse Ox 01/15/20 09:58 01/15/20 08:00 150/93 H 124/82 H 158/76 H 01/15/20 07:40 93 Intake & Output: Intake and Output Totals x24h 01/13/20 01/14/20 01/15/20 23:59 23:59 23:59 Intake Total 1120 1210 290 Output Total 200 650 200 Balance 920 560 90 - Lab Results Lab Results: 01/13/20 04:25 01/13/20 04:25 - Current Medications Current Medications: Current Medications Generic Name Dose Route Start Last Admin Trade Name Freq PRN Reason Stop Dose Admin Acetaminophen 650 - 975 mg 01/09/20 21:55 01/14/20 20:29 Tylenol PO 975 mg Q4HR PRN Administration PAIN Amlodipine Besylate 5 mg 01/15/20 09:00 01/15/20 08:51 Norvasc PO 5 mg DAILY LARRY Administration Aspirin 325 mg 01/10/20 08:00 01/15/20 08:51 Crista PO 325 mg BIDWM LARRY Administration Calcium Carbonate/Glycine 500 mg 01/12/20 21:00 01/15/20 08:51 Tums PO 500 mg BID [facility] Administration Cholecalciferol 50 mcg 01/13/20 09:00 01/15/20 08:51 Vitamin D3 PO 50 mcg DAILY LARRY Administration Ketorolac Tromethamine 15 mg 01/12/20 10:09 01/14/20 23:37 Toradol Inj (15mg) IVP 01/17/20 10:08 15 mg Q6HR PRN Administration PAIN Levothyroxine Sodium 50 mcg 01/09/20 07:00 01/15/20 06:27 Synthroid PO 50 mcg QDAC [facility] Administration Pantoprazole Sodium 40 mg 01/09/20 07:00 01/15/20 06:27 Protonix PO 40 mg QDAC [facility] Administration Prochlorperazine Edisylate 10 mg 01/09/20 21:55 01/14/20 23:37 Compazine Inj IVP 10 mg Q6HR PRN Administration Nausea / Vomiting Sodium Chloride 10 ml 01/08/20 17:00 01/12/20 10:43 Normal Saline Flush 0.9% IVP 10 ml PRN PRN Administration NEEDED PER PROVIDER ORDERS Sodium Chloride 10 ml 01/08/20 17:00 01/15/20 08:52 Normal Saline Flush 0.9% IVP 10 ml 0100,0900,1700 [facility] Administration Sodium Chloride 10 ml 01/10/20 01:00 01/14/20 23:37 Normal Saline Flush 0.9% IVP 10 ml 0100,0900,1700 [facility] Administration - Physical Exam Wound/Incisions: positive: Healing well, Dressing dry and intact, No drainage General Appearance: positive: No acute distress Skin: positive: Color nml, No rash, Warm, Dry Extremities: positive: Other Neurologic/Psychiatric: positive: Oriented x3 (She is moving her right lower extremity better each day, especially her active motion. She has no abnormal swelling to lower extremity. Skin is intact. Circulation is intact. Sharita rologic function is intact.), Mood/affect nml Impression/Plan - Problem List Problem List: She continues to make steady progress with her right hip hemiarthroplasty. She does need some additional physical and occupational therapy prior to discharge to home to allow for a safe discharge. And the tentative plan is to transfer her to a [facility] facility tomorrow. Her medications can be completed by primary care including deep venous thrombosis prophylaxis for at least a month. I would like to recheck her within 6 weeks for orthopedic follow-up.
[2020-01-15] MEDS: ACETAMINOPHEN 325 MG TABLET PO PRN ×2 (13:15→21:11)
--- NOTE | 2020-01-15 16:00 | PROVIDER PROGRESS NOTE ---
Assessment/Plan - Problem List (1) Diarrhea Assessment/Plan: She only received perioperative antibiotics. Will order a C. difficile. If negative can start Imodium. (2) Thrombophlebitis of superficial vein of lower leg Assessment/Plan: Duplex venous Dopplers were ordered. She has no DVT. She does have a superficial venous thrombosis of the medial calf on the right side only. I called the orthopedic surgeon, Dr. Gonzalez, and we discussed it yesterday. He advised continuing to aspirin daily, not changing to nonsteroidal of other kind. He thinks she does not need to undergo CT venogram to locate the spot since this is superficial. He stated that using Xarelto was optional. I ordered TEDS compression stockings and to continue on this aspirin (antiplatelet management). We will continue with aspirin daily. This needs a follow-up exam looking for DVT in 7 days (according to UpToDate). (3) Closed right hip fracture Assessment/Plan: She POD # 6 and working with PT, pain under good control, but R leg is weaker she said. On 01/12, patient reported she has some numbness in the right lower extremity, which was reported to the orthopedic surgeon who saw the patient. She had intact neurovascular exam in thr right lower extremity on distal and proximal area. Discharge to a SNF is being arranged. (4) Hypertension Assessment/Plan: She had low blood pressure in the days after surgery and the home BP meds were never restarted. 3 days ago she had orthostasis that was severe, she was very symptomatic and she needed fluids, Midodrin was ordered. The patient refused to take the Midodrin, worrying about getting severe hypertension, as she has had in the past when blood pressure was greater than 250 systolic. Amlodipine 2.5 mg was resumed yesterday increased to 5 mg today. Her other antihypertensive (ARB with HCTZ) is not being started because she is orthostatic again today. (5) Orthostasis Assessment/Plan: Her blood pressure dropped from sitting to standing by approximately 30 mmHg today The ARB with HCTZ will not be started today. She is on her usual dose of amlodipine 5 mg increased from 2.5 mg yesterday. The anemia with hemoglobin of 9.6 is adding to this problem too. (6) Iron deficiency anemia Assessment/Plan: She has very low iron stores. We will start daily iron replacement. (7) Hypothyroidism Assessment/Plan: Her TSH is OK, she is on her home dose of Synthroid. (8) Depression Assessment/Plan: Her home Citalopram is ordered to use here. - Current Meds Current Meds: Current Medications Generic Name Dose Route Start Last Admin Trade Name Freq PRN Reason Stop Dose Admin Acetaminophen 650 - 975 mg 01/09/20 21:55 01/15/20 13:15 Tylenol PO 650 mg Q4HR PRN Administration PAIN Amlodipine Besylate 5 mg 01/15/20 09:00 01/15/20 08:51 Norvasc PO 5 mg DAILY LARRY Administration Aspirin 325 mg 01/10/20 08:00 01/15/20 08:51 Crista PO 325 mg BIDWM LARRY Administration Calcium Carbonate/Glycine 500 mg 01/12/20 21:00 01/15/20 08:51 Tums PO 500 mg BID LARRY Administration Cholecalciferol 50 mcg 01/13/20 09:00 01/15/20 08:51 Vitamin D3 PO 50 mcg DAILY LARRY Administration Ketorolac Tromethamine 15 mg 01/12/20 10:09 01/14/20 23:37 Toradol Inj (15mg) IVP 01/17/20 10:08 15 mg Q6HR PRN Administration PAIN Levothyroxine Sodium 50 mcg 01/09/20 07:00 01/15/20 06:27 Synthroid PO 50 mcg QDAC LARRY Administration Pantoprazole Sodium 40 mg 01/09/20 07:00 01/15/20 06:27 Protonix PO 40 mg QDAC LARRY Administration Prochlorperazine Edisylate 10 mg 01/09/20 21:55 01/14/20 23:37 Compazine Inj IVP 10 mg Q6HR PRN Administration Nausea / Vomiting Sodium Chloride 10 ml 01/08/20 17:00 01/12/20 10:43 Normal Saline Flush 0.9% IVP 10 ml PRN PRN Administration NEEDED PER PROVIDER ORDERS Sodium Chloride 10 ml 01/08/20 17:00 01/15/20 08:52 Normal Saline Flush 0.9% IVP 10 ml 0100,0900,1700 LARRY Administration Sodium Chloride 10 ml 01/10/20 01:00 01/15/20 11:03 Normal Saline Flush 0.9% IVP 10 ml 0100,0900,1700 LARRY Administration - Lab Result Fish Bone Diagrams: 01/13/20 04:25 01/13/20 04:25 - Additional Planning My Orders: My Active Orders 01/15/20 09:00 amLODIPine [Norvasc] 5 mg PO DAILY 01/15/20 13:50 C DIFF PCR Urgent Subjective - Subjective Patient Reports: Diarrhea (States she had frequent formed bowel movements today they are liquidy and frequent.) Objective Vital Signs: Vital Signs - 24 hr 01/14/20 01/14/20 01/15/20 18:00 23:30 07:40 Temperature 37 C 37.2 C Heart Rate [ 70 69 Brachial] Heart Rate [ 76 Sitting (After 1 Minute)] Heart Rate [ 89 Standing (After 1 Minute)] Heart Rate [ 76 Supine] Respiratory 20 18 Rate Blood Pressure 152/73 H 173/81 H [Right Brachial artery] Blood Pressure 165/78 H [Sitting (After 1 Minute)] Blood Pressure 154/71 H [Standing ( After 1 Minute) ] Blood Pressure 147/60 H [Supine] O2 Saturation 98 93 01/15/20 01/15/20 08:00 09:58 Temperature Heart Rate [ 74 73 Brachial] Heart Rate [ 80 Sitting (After 1 Minute)] Heart Rate [ 96 Standing (After 1 Minute)] Heart Rate [ 74 Supine] Respiratory Rate Blood Pressure 158/76 H 138/71 H [Right Brachial artery] Blood Pressure 150/93 H [Sitting (After 1 Minute)] Blood Pressure 124/82 H [Standing ( After 1 Minute) ] Blood Pressure 158/76 H [Supine] O2 Saturation Oxygen O2 Source Room air I&O (Last 24 Hrs): Intake and Output Totals x24h 01/13/20 01/14/20 01/15/20 23:59 23:59 23:59 Intake Total 1120 1210 770 Output Total 200 650 200 Balance 920 560 570 General: Alert, Oriented x3 HEENT: EOMI, Mucous membr. moist/pink Neck: Supple, No JVD Neuro: Alert, Non Focal Cardiovascular: Regular rate Respiratory: No respiratory distress Abdomen: Soft Extremities: No edema - Results Results: Laboratory Results WBC 6.8 x10^3/uL (4.8-10.8) 01/13/20 04:25 RBC 3.16 10^6/uL (4.20-5.40) L 01/13/20 04:25 Hgb 9.6 g/dL (12.0-16.0) L 01/13/20 04:25 Hct 28.8 % (37.0-47.0) L 01/13/20 04:25 MCV 92.6 fL (81.0-99.0) 01/13/20 04:25 MCH 30.9 pg (27.0-31.0) 01/13/20 04:25 MCHC 33.3 g/dL (32.0-36.0) 01/13/20 04:25 RDW 12.6 % (12.0-15.0) 01/13/20 04:25 Plt Count 200 10^3/uL (130-450) 01/13/20 04:25 MPV 10.8 fL (7.9-10.8) 01/13/20 04:25 Reticulocyte % (Auto) 1.38 % (0.5-2.3) 01/13/20 04:25 Neut # (Auto) 4.4 10^3/uL (1.5-6.6) 01/13/20 04:25 Lymph # (Auto) 1.4 10^3/uL (1.5-3.5) L 01/13/20 04:25 [place] # (Auto) 0.7 10^3/uL (0.0-1.0) 01/13/20 04:25 Eos # (Auto) 0.3 10^3/uL (0.0-0.7) 01/13/20 04:25 Baso # (Auto) 0.0 10^3/uL (0.0-0.1) 01/13/20 04:25 Absolute Nucleated RBC 0.00 x10^3/uL 01/13/20 04:25 Nucleated RBC % 0.0 /100WBC 01/13/20 04:25 Absolute Retic 0.044 10^6/uL (0.020-0.110) 01/13/20 04:25 PT 12.4 secs (9.9-12.6) 01/08/20 14:35 INR 1.1 (0.8-1.2) 01/08/20 14:35 APTT 30.7 secs (24.9-33.3) 01/08/20 14:35 Sodium 139 mmol/L (135-145) 01/13/20 04:25 Potassium 3.5 mmol/L (3.5-5.0) 01/13/20 04:25 Chloride 103 mmol/L (101-111) 01/13/20 04:25 Carbon Dioxide 25 mmol/L (21-32) 01/13/20 04:25 Anion Gap 11.0 (6-13) 01/13/20 04:25 BUN 18 mg/dL (6-20) 01/13/20 04:25 Creatinine 0.6 mg/dL (0.4-1.0) 01/13/20 04:25 Estimated GFR (MDRD) 97 (>89) 01/13/20 04:25 Glucose 116 mg/dL (70-100) H 01/13/20 04:25 Calcium 8.3 mg/dL (8.5-10.3) L 01/13/20 04:25 Iron 30 ug/dL (28-170) 01/13/20 04:25 TIBC 214 ug/dL (250-450) L 01/13/20 04:25 % Saturation 14 % (20-50) L 01/13/20 04:25 Transferrin 153 mg/dL (192-382) L 01/13/20 04:25 Ferritin 370.5 ng/mL (11.0-306.8) H 01/13/20 04:25 Total Bilirubin 0.9 mg/dL (0.2-1.0) 01/08/20 14:35 AST 24 IU/L (10-42) 01/08/20 14:35 ALT 25 IU/L (10-60) 01/08/20 14:35 Alkaline Phosphatase 105 IU/L (42-121) 01/08/20 14:35 Lactate Dehydrogenase 219 IU/L (91-225) 01/13/20 04:25 Total Protein 6.8 g/dL (6.7-8.2) 01/08/20 14:35 Albumin 3.6 g/dL (3.2-5.5) 01/08/20 14:35 Globulin 3.2 g/dL (2.1-4.2) 01/08/20 14:35 Albumin/Globulin Ratio 1.1 (1.0-2.2) 01/08/20 14:35 Lipase 31 U/L (22-51) 01/08/20 14:35 Vitamin B12 247 pg/mL (180-914) 01/13/20 04:25 TSH 0.54 uIU/mL (0.34-5.60) 01/11/20 04:50 Cortisol AM Sample 5.8 ug/dL 01/13/20 04:25 Urine Color YELLOW 01/08/20 15:00 Urine Clarity CLEAR (CLEAR) 01/08/20 15:00 Urine pH 7.0 PH (5.0-7.5) 01/08/20 15:00 Ur Specific [place] 1.020 (1.002-1.030) 01/08/20 15:00 Urine Protein NEGATIVE mg/dL (NEGATIVE) 01/08/20 15:00 Urine Glucose (UA) NEGATIVE mg/dL (NEGATIVE) 01/08/20 15:00 Urine Ketones TRACE mg/dL (NEGATIVE) 01/08/20 15:00 Urine Occult Blood NEGATIVE (NEGATIVE) 01/08/20 15:00 Urine Nitrite NEGATIVE (NEGATIVE) 01/08/20 15:00 Urine Bilirubin NEGATIVE (NEGATIVE) 01/08/20 15:00 Urine Urobilinogen 0.2 (NORMAL) E.U./dL (NORMAL) 01/08/20 15:00 Ur Leukocyte Esterase NEGATIVE (NEGATIVE) 01/08/20 15:00 Ur Microscopic Review NOT INDICATED 01/08/20 15:00 Urine Culture Comments NOT INDICATED 01/08/20 15:00 Coronavirus (PCR) NEGATIVE 01/12/20 11:05 Sepsis Event Note (H) - Evaluation Current Stage of Sepsis: Ruled out
[2020-01-15] MEDS: FERROUS GLUCONATE 324 MG TABLET PO SCH (17:56)
[2020-01-15] MEDS ORDERED: LOPERAMIDE 2 MG CAPSULE PO PRN (18:51)
[2020-01-15] MEDS: KETOROLAC 15 MG/ML VIAL IVP PRN (23:57)
[2020-01-16] MEDS: ACETAMINOPHEN 325 MG TABLET PO PRN (03:47)
--- NOTE | 2020-01-16 08:17 | Discharge Plan ---
"Discharge Plan for SNF / [facility] - Discharge Plan And Transition Orders Problem Reviewed?: Yes Disposition: 03 [facility] DC/Xfer Condition: Stable Allergies and Adverse Reactions: Allergies Allergy/AdvReac Type Severity Reaction Status Date / Time meperidine [From Demerol] AdvReac Emesis Verified 01/08/20 13:14 Health Concerns: Admitted with a fractured right hip after falling at home. Postoperatively had orthostatic hypotension, a superficial vein thrombosis and diarrhea that is C. difficile negative. Blood pressure medications have been individually resumed slowly. Needs orthostatic VS checked every day after breakfast. Imodium ordered prn diarrhea. Needs a Duplex venous Doppler done on 01/20/20, to evaluate if the superficial R calf thrombus has extended to a DVT. Needs calcium and vit D replacement for osteopenia history. Iron deficiency anemia found and iron replacement started. Needs PT rehab at [facility]. Plan of Treatment: As above. Care Goals: Strengthening with rehab and stabilization are the goals. Assessment: The patient understands and is agreeable with the plan. - SNF / [facility] Transition Orders Admit to (Facility): [facility] Discharge Diagnosis: (1) Closed right hip fracture (2) Orthostasis (3) Hypertension (4) Diarrhea (5) Thrombophlebitis of superficial vein of lower leg (6) Iron deficiency anemia (7) Hypothyroidism (8) Depression Medicare Certification Statement: I certify that Post Hospital intermediate care is medically necessary on a continuing basis for any of the conditions for which she/he is receiving care during hospitalization. Notify PCP of admission and forward orders to primary provider for signature. Weight on admission and: Weekly Call PCP immediately if weight increases by: 5 kg Other Notification Orders: Call PCP immediately if patient develops dyspnea, chest pain/tightness or edema. House Bowel Program: Yes Additional Bowel Program Orders: If no BM after 2 days, nurse may give M.O.M. 30ml PO PRN and/or ducolax Supp 1 TX and/or SHERI 250mg P.O., and/or senna 1-2 tabs PO. On day 3 nurse may give repeat above order until residents constipation is resolved. Annual Influenza Vaccine (between Apr 03 and October 31): Yes Two-step PPD per [facility] [id number] or approved exception documents: Yes Treatments & Other Orders: Daily PT and OT. Daily orthostatic VS check after breakfast Lab Tests or X-ray Orders: BMP every Mon to check Potasssium. Duplex Doppler of R leg on , to eval for DVT extension from her superficial vein thrombosis of R calf. Orthopedic Orders: See Orthopedist in [facility] in 6 weeks Medication Orders: PLEASE REFER TO THE DISCHARGE MEDICATION LIST. Insulin Orders?: No - Medications New Prescriptions: oxyCODONE [Roxicodone] 5 mg PO Q4HR PRN #20 tablet PRN Reason: Pain Aspirin [Crista] 325 mg PO BIDWM #60 tablet Calcium Carbonate [Tums (Calcium Carbonate 500mg)] 500 mg PO BID #60 tablet Cholecalciferol [Vitamin D3] 5,000 unit PO DAILY #30 capsule Ferrous Gluconate 240 mg PO DAILY #30 tablet Loperamide [Imodium] 2 mg PO QID PRN #60 capsule PRN Reason: Diarrhea - Diet Type: No added salt Texture: Regular Liquids: Thin May have monthly special meal: Yes - Therapies | Activity Therapy: Evaluation | Treat if indicated: PT, OT Rehabilitation Potential: Maximize functional status Activity: Activity as Tolerated Weight Bearing: Full Weight Assistance Devices: Walker Additional Instructions: Needs follow-up evaluation for osteopenia by PCP. Follow Up: See Orthopedist, Dr Gonzalez, in [facility] in 6 weeks. See PCP in routine follow-up after discharge from SNF."
--- NOTE | 2020-01-16 08:41 | DISCHARGE SUMMARY ---
"Discharge Summary Admit Date: 01/08/20 Discharge Date: 01/16/20 Discharging Provider: Dr Cherelle Martins Primary Care Provider: Dr Felicia Newby Code Status: Attempt Resuscitation Condition at Discharge: Stable Discharge Disposition: 03 SNF DC/Xfer Discharge Facility Name: [facility] History of Present Illness: From the admission H&P of Dr Carmela Ang: This is a 74-year-old white female with a history of hypertension, depression and hypothyroidism. She lives alone and is very independent. She fell off of a step stool in her garage and had extreme R leg pain. She did not hit her head or have syncope. She was brought to the emergency room and found to have a right hip fracture. She was admitted to the Hospitalist service to have hip surgery by Orthopedics, and have perioperative management. - CONSULTS | PROCEDURES Consultations: Dr Jose Gonzalez, Orthopedist Procedures: Hemiarthroplasty right hip on 01/09/20 - HOSPITAL COURSE Hospital Course: (1) Closed right hip fracture The fracture occurred as per history. The patient reported that she has osteopenia. Fosamax needs to be started in several weeks, after the orthopedic surgical site heals. (2) S/P Right hip arthroplasty She has successful hip surgery on 01/09/20. She was put on vitamin D and Calcium supplements. She started PT and was discharged on 01/16/20 to [facility] for further rehab. (3) Orthostatic Hypotension After surgery, while using narcotic meds for pain, she had a near syncopal spell getting up to use the bathroom, that was witnessed. Her BP was 80 systolic. She had not been put on her home BP meds yet. Orthostatic vital signs were checked daily after that and she remained orthostatic for several days, which was felt to be from volume depletion and narcotic use, which were weaned to off. A morning cortisol level was OK. (4) Hypertension The patient was very worried that her BP meds had not been restarted for several days, since once she had difficult to control and very high BP, she said. Her orthostasis was explained and her BP meds were eventually added one by one. (5) Thrombophlebitis of superficial vein of lower leg, right On the day of planned discharge, she complained of pain in bilateral achilles tendon areas, radiating up her calves, right worse than left. A Duplex Doppler was done to evaluate for DVT; this held up discharge. It did show a superficial calf venous thrombosis on the right. The same DVT prophylaxis was continued (aspirin 325 mg po b.i.d., per the Orthopedic protocol, after discussion with the orthopedic surgeon). A repeat venous Doppler exam was recommended to be done in 1 week (per UpToDate), and was ordered to be done while she will be at the SNF doing rehab, so as to assure there was no extension to a deep venous thrombosis. (6) Diarrhea On the day of discharge, she complained of watery frequent, non-painful, non- bloody diarrhea; this held up discharge. A C. diff was sent and was neg. She was put on Imodium prn and continued on this at discharge. (7) Iron deficiency anemia Her admission Hgb was 13.1 which had dropped to 11.4, on the day of her near syncopal spell, on POD #1. She had labs checked, and B12 and Folate levels were adequate, but Iron stores were low (% sat was 14%, normal is 20-50%). This she was put on oral Iron replacement and discharged on this. (8) Hypothyroidism Her TSH was OK at 0.54, and she was continued on her home thyroid med dose. (9) Depression Her home meds were continued. - ALLERGIES Allergies/Adverse Reactions: Allergies Allergy/AdvReac Type Severity Reaction Status Date / Time meperidine [From Demerol] AdvReac Emesis Verified 01/08/20 13:14 - MEDICATIONS Home Medications: Ambulatory Orders Medication Instructions Recorded Confirmed Citalopram [CeleXA] 40 mg PO DAILY 08/14/18 01/08/20 Levothyroxine [Synthroid] 50 mcg PO DAILY 08/14/18 01/08/20 amLODIPine [Norvasc] 5 mg PO QPM 01/08/20 01/08/20 Aspirin [Crista] 325 mg PO BIDWM #60 tablet 01/16/20 Calcium Carbonate [Tums (Calcium 500 mg PO BID #60 tablet 01/16/20 Carbonate 500mg)] Cholecalciferol [Vitamin D3] 5,000 unit PO DAILY #30 capsule 01/16/20 Ferrous Gluconate 240 mg PO DAILY #30 tablet 01/16/20 Loperamide [Imodium] 2 mg PO QID PRN #60 capsule 01/16/20 oxyCODONE [Roxicodone] 5 mg PO Q4HR PRN #20 tablet 01/16/20 - PHYSICAL EXAM AT DISCHARGE General Appearance: positive: No acute distress, Alert Eyes Bilateral: positive: Normal inspection, EOMI ENT: positive: ENT inspection nml, No signs of dehydration Neck: positive: Nml inspection, No JVD Respiratory: positive: No respiratory distress Cardiovascular: positive: Regular rate & rhythm, No murmur Abdomen: positive: Non-tender, No distention Skin: positive: Color nml Extremities: positive: No pedal edema Neurologic/Psychiatric: positive: Oriented x3, Other (Non-focal) - LABS Result Diagrams: 01/13/20 04:25 01/13/20 04:25 - DIAGNOSTIC IMAGING Diagnostic Imaging Results: Final report reviewed - QUALITY (Female Hip Fx Only) Was patient sent home on osteoporosis medication?: No (This needs to be started in several weeks, after ortho surgery site healing) - FOLLOW UP Follow Up: See PCP after Dch from [facility]. See Dr Gonzalez in [facility] in 6 weeks. - TIME SPENT Time Spent in Discharge (Minutes): 60"
[2020-01-16] MEDS: CALCIUM CARBONATE CHEW 500 MG TABLET PO SCH (08:54)
[2020-01-16] MEDS: LEVOTHYROXINE 25 MCG TABLET PO SCH (08:54)
[2020-01-16] MEDS: FERROUS GLUCONATE 324 MG TABLET PO SCH (08:54)
[2020-01-16] MEDS: CHOLECALCIFEROL 25 MCG TABLET PO SCH (08:54)
[2020-01-16] MEDS: PANTOPRAZOLE 40 MG TABLET PO SCH (08:55)
[2020-01-16] MEDS: amLODIPine 5 MG TABLET PO SCH (08:55)
[2020-01-16] MEDS: ASPIRIN 325 MG TABLET PO SCH (08:55)
[2020-01-16] MEDS: SODIUM CHLORIDE FLUSH 0.9% 10 ML SYRINGE IVP SCH ×2 (08:56)
[2020-01-16 09:44] VITALS: BP 130/71
== END 2020-01-16 10:00 | DRG 470 ==
LOC: EDUNIT# → ED 13:04 → MS2 16:29
PROVIDERS: ADMIT Internal Medicine; ATTEND Internal Medicine
PROC: 0SRR01A Replacement of Right Hip Joint, Femoral Surface with Metal Synthetic Substitute, Uncemented, Open Approach (ICD-10-PCS; principal; 2020-01-09 13:15)
DX: S72.001A Fracture of unspecified part of neck of right femur, initial encounter for closed fracture (principal); S72.031A Displaced midcervical fracture of right femur, initial encounter for closed fracture; Y92.009 Unspecified place in unspecified non-institutional (private) residence as the place of occurrence of the external cause; T81.72XA Complication of vein following a procedure, not elsewhere classified, initial encounter; I80.03 Phlebitis and thrombophlebitis of superficial vessels of lower extremities, bilateral; Y83.8 Other surgical procedures as the cause of abnormal reaction of the patient, or of later complication, without mention of misadventure at the time of the procedure; W11.XXXA Fall on and from ladder, initial encounter; Y92.008 Other place in unspecified non-institutional (private) residence as the place of occurrence of the external cause; I10 Essential (primary) hypertension; E89.0 Postprocedural hypothyroidism; F32.9 Major depressive disorder, single episode, unspecified; I95.2 Hypotension due to drugs; T40.605A Adverse effect of unspecified narcotics, initial encounter; Y92.230 Patient room in hospital as the place of occurrence of the external cause; D50.9 Iron deficiency anemia, unspecified; R19.7 Diarrhea, unspecified; H91.90 Unspecified hearing loss, unspecified ear; Z66 Do not resuscitate; Z79.899 Other long term (current) drug therapy; Z11.59 Encounter for screening for other viral diseases
CPT/HCPCS: 36415; 51702; 71045; 73501; 73502; 80048; 80053; 81003; 82533; 82607; 82728; 83540; 83615; 83690; 84443; 84466; 85025; 85045; 85610; 85730; 87493; 93005; 93970; 96374; 96376; 97110; 97116; 97162; 97166; 97530; 97535; 99284; 99285; A9270; J0131; J1170; J7120; J8499; U0004; 81001; 81599; 87086

== ENCOUNTER 2020-02-27 12:01 | Outpatient (CLI) | payer MEDICARE, OTHER | END 2020-02-27 12:02 | disposition home or self-care (01) | LOC: COV 12:01 | PROVIDERS: ATTEND Family Medicine | DX: Z20.828 Contact with and (suspected) exposure to other viral communicable diseases (principal) ==

== ENCOUNTER 2020-03-22 14:13 | Outpatient (CLI) | payer MEDICARE, OTHER ==
--- NOTE | 2020-03-22 16:06 | XRAY Report ---
PROCEDURE: Hip w/Pelvis 2-3V RT INDICATIONS: FX OF NECK OF FEMUR TECHNIQUE: AP pelvis with lateral view(s) of the right hip(s). COMPARISON: Prior left and right hip joints early January 2020 reviewed.. FINDINGS: Bones: No fractures or dislocations. Pelvic ring appears intact. No suspicious bony lesions. Soft tissues: The visualized bowel gas pattern is normal. No suspicious soft tissue calcifications. IMPRESSION: Prior right total hip arthroplasty, normal alignment established. No evidence of device loosening or disruption. Reviewed by: Sandeep Montilla MD on 03/22/2020 4:05 PM PDT Approved by: Sandeep Montilla MD on 03/22/2020 4:05 PM PDT Station ID: [id number]
== END 2020-03-22 14:14 | disposition home or self-care (01) ==
LOC: DI 14:13
PROVIDERS: ATTEND Orthopaedic Surgery
DX: S72.009 Fracture of unspecified part of neck of unspecified femur (principal)

== ENCOUNTER 2020-09-28 18:58 | Outpatient (CLI) | payer MEDICARE, OTHER | END 2020-09-28 18:59 | disposition short-term general hospital (02) | LOC: EMS 18:58 | DX: R55 Syncope and collapse (principal); R11.2 Nausea with vomiting, unspecified | CPT/HCPCS: A0425; A0429 ==

== ENCOUNTER 2020-12-17 12:30 | Outpatient (CLI) | payer MEDICARE, OTHER | END 2020-12-17 23:59 | disposition home or self-care (01) | LOC: COV 12:30 | PROVIDERS: ATTEND Otolaryngology Plastic Surgery within the Head & Neck | DX: Z01.812 Encounter for preprocedural laboratory examination (principal); Z20.822 Contact with and (suspected) exposure to COVID-19 ==

== ENCOUNTER 2022-09-22 13:58 | Emergency (ER) | payer MEDICARE, OTHER ==
--- NOTE | 2022-09-22 14:43 | XRAY Report ---
PROCEDURE: Chest 1 View X-Ray INDICATIONS: Chest Pain TECHNIQUE: One view of the chest was acquired. COMPARISON: None. FINDINGS: Surgical changes and devices: None. Lungs and pleura: No pleural effusions or pneumothorax. Lungs are clear. Mediastinum: Mediastinal contours appear normal. Heart size is normal. Bones and chest wall: No suspicious bony lesions. Overlying soft tissues appear unremarkable. IMPRESSION: No acute cardiopulmonary process demonstrated radiographically. Reviewed by: Darinel Her MD on 09/22/2022 2:42 PM PST Approved by: Darinel Her MD on 09/22/2022 2:42 PM PST Station ID: [id number]
[2022-09-22 14:47] LABS: BASOPHILS % (AUTO) 0.4 %; EOSINOPHILS # (AUTO) 0.3 10^3/uL (0.0-0.7); EOSINOPHILS % (AUTO) 3.7 %; HCT - HEMATOCRIT 36.1 % (37.0-47.0); HGB - HEMOGLOBIN 11.6 g/dL (12.0-16.0); LYMPHOCYTES # (AUTO) 1.6 10^3/uL (1.5-3.5); LYMPHOCYTES % (AUTO) 23.7 %; MEAN CORPUSCULAR HEMOGLOBIN 30.2 pg (27.0-31.0); MEAN CORPUSCULAR HGB CONC 32.1 g/dL (32.0-36.0); MEAN PLATELET VOLUME 9.8 fL (7.9-10.8); MONOCYTES # (AUTO) 0.5 10^3/uL (0.0-1.0); MONOCYTES % (AUTO) 7.2 %; NEUTROPHILS # (AUTO) 4.4 10^3/uL (1.5-6.6); NEUTROPHILS % (AUTO) 64.7 %; PLT - PLATELET COUNT 314 10^3/uL (130-450); RED BLOOD COUNT 3.84 10^6/uL (4.20-5.40); RED CELL DISTRIBUTION WIDTH 13.7 % (12.0-15.0); WHITE BLOOD COUNT 6.8 x10^3/uL (4.8-10.8)
[2022-09-22 15:00] LABS: ALBUMIN/GLOBULIN RATIO 1.3 (1.0-2.2); BILIRUBIN,TOTAL 0.8 mg/dL (0.2-1.0); CALCIUM 9.2 mg/dL (8.5-10.3); CREATININE 0.9 mg/dL (0.4-1.0); POTASSIUM 4.1 mmol/L (3.5-5.0)
[2022-09-22] MEDS ORDERED: PANTOPRAZOLE 40 MG TABLET PO STA (15:58)
[2022-09-22] MEDS ORDERED: SUCRALFATE 1 GM/10 ML UDC PO STA (15:58)
[2022-09-22] MEDS ORDERED: FAMOTIDINE 20 MG TABLET PO STA (15:58)
[2022-09-22] MEDS ORDERED: MAG HYDROX/AL HYDROX/SIMETH 30 ML UDC PO STA (15:58)
[2022-09-22 16:09] VITALS: BP 150/81
--- NOTE | 2022-09-22 16:38 | ED Physician Documentation ---
History of Present Illness - Stated complaint Stated Complaint: CHEST PRESSURE - Chief complaint Chief Complaint: Cardiac - History obtained from History obtained from: Patient, Family - History of Present Illness Pain level max: 6 Pain level now: 5 - Additonal information Additional information: 77-year-old female with epigastric pain for the past 2 to 3 days. She recently started taking meloxicam Several weeks ago after a hip replacement.. Worse with eating and drinking. Nothing makes it better. No vomiting. No chest pain. No shortness of breath. No fevers. No cough. No chills. No diarrhea or constipation. 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 HEENT: Cataracts Derm: Skin cancer surgery - Present Medications Home Medications: Ambulatory Orders Medication Instructions Recorded Confirmed Citalopram [CeleXA] 40 mg PO DAILY 08/14/18 01/08/20 Levothyroxine [Synthroid] 50 mcg PO DAILY 08/14/18 01/08/20 amLODIPine [Norvasc] 5 mg PO QPM 01/08/20 01/08/20 Aspirin [Crista] 325 mg PO BIDWM #60 tablet 01/16/20 Calcium Carbonate [Tums (Calcium 500 mg PO BID #60 tablet 01/16/20 Carbonate 500mg)] Cholecalciferol [Vitamin D3] 5,000 unit PO DAILY #30 capsule 01/16/20 Ferrous Gluconate 240 mg PO DAILY #30 tablet 01/16/20 Loperamide [Imodium] 2 mg PO QID PRN #60 capsule 01/16/20 oxyCODONE [Roxicodone] 5 mg PO Q4HR PRN #20 tablet 01/16/20 Esomeprazole Magnesium [Nexium] 40 mg PO DAILY #30 cap 09/22/22 Famotidine [Pepcid] 20 mg PO BID #60 tablet 09/22/22 Sucralfate [Carafate] 1 gm PO ACHS #60 tablet 09/22/22 - Allergies Allergies/Adverse Reactions: Allergies Allergy/AdvReac Type Severity Reaction Status Date / Time meperidine [From Demerol] AdvReac Emesis Verified 09/22/22 14:10 - Social History Does the pt smoke?: No Smoking Status: Never smoker Does the pt drink ETOH?: Yes Does the pt have substance abuse?: No - Immunizations Immunizations are current?: Yes - POLST Patient has POLST: No POLST Status: Full Code PD ED PE NORMAL - Vitals Vital signs reviewed: Yes - General General: Alert and oriented X 3, No acute distress - HEENT HEENT: PERRL, Moist mucous membranes - Neck Neck: Supple, no meningeal sign - Cardiac Cardiac: RRR, Strong equal pulses - Respiratory Respiratory: No respiratory distress, Clear bilaterally - Abdomen Abdomen: Soft, Non distended, Other (TTP epigastric, no peritoneal signs.) - Back Back: No CVA TTP, No spinal TTP - Derm Derm: Warm and dry - Extremities Extremities: No edema, No calf tenderness / cord - Neuro Neuro: Alert and oriented X 3 - Psych Psych: Normal mood, Normal affect Results - Vitals Vitals: Vital Signs - 24 hr 09/22/22 09/22/22 09/22/22 14:06 15:41 16:08 Temperature 36.8 C Heart Rate 76 68 78 Respiratory 16 18 18 Rate Blood Pressure 164/98 H 165/89 H 150/81 H O2 Saturation 100 100 100 Oxygen O2 Source Room air - EKG (time done) 1415 Rate: Rate (enter#) (71) Rhythm: NSR [place]: Normal Intervals: Normal PA QRS: Normal, LVH Ischemia: Normal ST segments - Labs Labs: Laboratory Tests 09/22/22 09/22/22 09/22/22 14:44 14:44 14:44 WBC 6.8 RBC 3.84 L Hgb 11.6 L Hct 36.1 L MCV 94.0 MCH 30.2 MCHC 32.1 RDW 13.7 Plt Count 314 MPV 9.8 Neut # (Auto) 4.4 Lymph # (Auto) 1.6 [place] # (Auto) 0.5 Eos # (Auto) 0.3 Baso # (Auto) 0.0 Absolute Nucleated RBC 0.00 Nucleated RBC % 0.0 Sodium 134 L Potassium 4.1 Chloride 98 L Carbon Dioxide 28 Anion Gap 8.0 BUN 29 H Creatinine 0.9 Estimated GFR (MDRD) 61 L Glucose 107 H Calcium 9.2 Total Bilirubin 0.8 AST 19 ALT 19 Alkaline Phosphatase 136 H Troponin I High Sens 4.0 Total Protein 7.0 Albumin 4.0 Globulin 3.0 Albumin/Globulin Ratio 1.3 Lipase 41 - Rads (name of study) cxr Radiology: Final report received, See rad report PD Medical Decision Making - ED course Complexity details: reviewed results, re-evaluated patient, considered differential (No ST elevation HI, no aortic dissection, no PE, no tension pneumothorax, no aortic aneurysm), d/w patient, d/w family ED course: Patient is a 77-year-old female who presents to the emergency department epigastric abdominal pain for the past 2 days. No significant findings on CBC. ER abdominal panel shows an elevated BUN to creatinine ratio. Mildly elevated alkaline phosphatase. Negative high-sensitivity troponin. No acute findings on chest x-ray. No acute findings on EKG. Symptoms seem to be related to her recently starting meloxicam after a hip surgery. Given a GI cocktail for possible gastritis. Symptoms fully resolved. We will have her stop the meloxicam and place her on Carafate, a PPI and H2 alex for home. Patient counseled regarding signs and symptoms for which I believe and urgent re- evaluation would be necessary. Patient with good understanding of and agreement to plan and is comfortable going home at this time This document was made in part using voice recognition software. While efforts are made to proofread this document, sound alike and grammatical errors may occur. Departure - Departure Disposition: 01 Home, Self Care Clinical Impression: Gastritis Qualifiers: Gastritis type: unspecified gastritis Chronicity: acute Gastritis bleeding: without bleeding Qualified Code(s): K29.00 - Acute gastritis without bleeding Condition: Good Instructions: ED PUD Vs Gastritis Follow-Up: Provider,Other [Primary Care Provider] - Within 1 week Prescriptions: Sucralfate [Carafate] 1 gm PO ACHS #60 tablet Esomeprazole Magnesium [Nexium] 40 mg PO DAILY #30 cap Famotidine [Pepcid] 20 mg PO BID #60 tablet Comments: Your prescriptions were sent to [facility] in [place]. It is likely that the meloxicam is causing irritation to your stomach causing a condition known as gastritis. Please follow-up with your doctor for further care. Please return if you worsen. Please stop the meloxicam. Please avoid spicy foods, fried foods, caffeine and alcohol. You should also avoid NSAIDs such as Motrin and Aleve. Discharge Date/Time: 09/22/22 16:55
== END 2022-09-22 16:55 | disposition home or self-care (01) ==
LOC: ED 13:58
DX: K29.00 Acute gastritis without bleeding (principal)
CPT/HCPCS: 36415; 71045; 80053; 83690; 84484; 85025; 93005; 99284; A9270